=== PATIENT | male | born 1965 | race Caucasian/White ===

== ENCOUNTER 2020-07-12 09:41 | Outpatient (REF) | payer MEDICARE, MEDICAID, SELFPAY ==
[2020-07-12 10:12] LABS: MANUAL DIFF FLAG NO
[2020-07-12 10:20] LABS: Basophils Absolute Auto 0.1 X10*3/uL (0.0-0.2); Basophils Percent Auto 0.8 % (0-2); Eosinophils Absolute Auto 0.4 X10*3/uL (0.0-0.4); Eosinophils Percent Auto 4.2 % (0-4); Hematocrit 43.1 % (42-52); Hemoglobin 14.4 g/dl (14.0-18.0); Imm Gran Abs Auto 0.02 X10*3/uL (0.00-0.03); Imm Gran Pct Auto 0.2 % (0.0-0.4); Lymphocytes Absolute Auto 1.6 X10*3/uL (1.2-4.9); Lymphocytes Percent Auto 18.9 % (20-40); Mean Corpuscular HGB Conc 33.4 g/dl (31.0-36.0); Mean Corpuscular Hemoglobin 31.4 pg (27.0-33.0); Mean Corpuscular Volume 93.9 fL (80-98); Mean Platelet Volume 10.3 fL (9.4-12.4); Monocytes Absolute Auto 0.5 X10*3/uL (0.1-1.2); Monocytes Percent Auto 6.4 % (2-11); Neutrophils Absolute Auto 5.8 X10*3/uL (2.0-8.3); Neutrophils Percent Auto 69.5 % (45-73); Platelet Count 253 X10*3/uL (160-400); Red Blood Count 4.59 X10*6/uL (4.60-5.80); Red Cell Distribution Width 12.2 % (11.0-16.0); White Blood Count 8.3 X10*3/uL (4.8-10.8)
[2020-07-12 10:24] LABS: Estimated Average Glucose 100 mg/dL; Hemoglobin A1c % 5.1 %
[2020-07-12 10:33] LABS: Lithium 0.57 mmol/L (0.60-1.20)
[2020-07-12 10:39] LABS: Alanine Aminotransferase 34 U/L (0-40); Albumin Level 4.2 g/dL (3.5-5.0); Alkaline Phosphatase 89 U/L (39-117); Anion Gap 11 (12-20); Aspartate Amino Transferase 22 U/L (5-37); Bilirubin Total 0.3 mg/dL (0.0-1.0); Blood Urea Nitrogen 16 mg/dL (9-16); Carbon Dioxide 24 mmol/L (22-29); Chloride 106 mmol/L (96-108); Cholesterol 171 mg/dL; Estimated Glomerular Filt Rate > 60; Glucose Random 101 mg/dL (60-115); HDL Cholesterol 37 mg/dL; LDL Cholesterol Calculated 96 mg/dl; Potassium 4.5 mmol/l (3.3-5.1); Sodium 136 mmol/L (135-145); Total Protein 6.7 g/dL (6.5-8.0); Triglycerides 190 mg/dL
[2020-07-12 11:02] LABS: Free T4 (Free Thyroxine) 0.43 ng/dL (0.71-1.85)
[2020-07-12 11:20] LABS: Folate 15.3 ng/mL (> or = 4.0); Vitamin B12 635 pg/mL (200-900)
== END 2020-07-12 09:42 | disposition home or self-care (01) ==
LOC: HO.LAB 09:41
PROVIDERS: Visit Provider Psychiatry & Neurology Psychiatry
DX: F33.3 Major depressive disorder, recurrent, severe with psychotic symptoms (principal); Z51.81 Encounter for therapeutic drug level monitoring
CPT/HCPCS: 36415; 80053; 80061; 80178; 82607; 82746; 83036; 84439; 85025

== ENCOUNTER 2020-07-17 19:16 | Inpatient (IN) | payer MEDICARE, MEDICAID, SELFPAY ==
[2020-07-17 19:28] VITALS: BP 140/110; BP 175/96; PULSE 87; PULSE 96; RESP 16; TEMP 36.4; O2SAT 100; O2SAT 98; BMI 24.6
--- NOTE | 2020-07-17 19:34 | PC.NURSE ---
pt from home. Per EMS, pt has a rn social services who was on scene but left before they were able to ask questions. Pt is oriented to self only but does follow commands. Face is symetrical, tongue midline. He has no facial droop. Deck Mate strength equal and strong. He has no limb ataxia.Pt moves all extremities equally. He has no skin wounds, bruises or other injuries. Pt has bloodshot eyes, dry mouth. No other findings on nursing exam.
--- NOTE | 2020-07-17 19:36 | ED_ITS ---
HPI - Altered Mental Status General Chief Complaint: Altered Mental Status Stated Complaint: AMS Time Seen by Provider: 07/17/20 19:35 Source: EMS Mode of arrival: EMS Limitations: altered mental status History of Present Illness HPI narrative: Patient with History of depression and bipolar disorder with psychotic features sent by therapist for increased confusion patient not taking his medication for last 1 month able to follow commands oriented to himself only denies any hallucinations MD complaint: altered mental status and confusion Related Data Home Medications Medication Instructions Recorded Confirmed atenolol PO 07/17/20 clomipramine PO 07/17/20 gabapentin PO 07/17/20 liothyronine mcg PO 07/17/20 lithium carbonate mg PO 07/17/20 quetiapine mg PO 07/17/20 venlafaxine mg PO 07/17/20 Allergies Allergy/AdvReac Type Severity Reaction Status Date / Time N.K.D.A. Allergy Unknown Uncoded 12/04/17 00:00 Review of Systems Review of Systems: Yes Unobtainable due to mental status Neurologic: Reports confusion Psychiatric: Psychiatric: Reports confusion [facility] Social History Social History Advance Directives: No Advance Directives Information Provided: No Physical Exam Vital Signs: Vital Signs: Last Vital Signs Temp 98.0 F 07/17/20 23:54 Pulse 98 07/17/20 23:54 Resp 18 07/17/20 23:54 BP 164/100 H 07/17/20 23:54 Pulse Ox 98 07/17/20 23:54 Body Mass Index 24.6 Const: General: cooperative, healthy appearing, comfortable, no acute distress, well developed, alert, awake and confusion Nutritional Appearance: average body habitus Orientation/consciousness: oriented to person and confusion Limitations: altered mental status HENMT: Head: Yes normal to inspection and Yes No palpable skull fracture pre sent Ears: hearing grossly normal bilaterally Mouth: Normal oral and palatal mucosa present Eyes: General: appearance normal, both eyes and all related structures Conjunctivae: conjunctivae normal Sclerae: sclerae normal Pupils: Equal, round and reactive pupils present Neck: Neck: Yes normal visual inspection, Yes full ROM, Yes no lymphadenopathy and Yes no meningeal signs Resp: Effort & Inspection: normal respiratory effort Auscultation: clear to auscultation bilaterally, no crackles, no rales and no rhonchi Cardio: Jugular venous distension: no JVD Rate: regular rate Rhythm: regular rhythm Heart sounds: S1 normal heart sound present and S2 normal heart sound present GI: Inspection: Yes normal to inspection Palpation (GI): Soft to palpation and nontender : General: Yes no CVA tenderness Back/Spine/Pelvis: Back: no CVA tenderness Thoracic/Lumbar Spine: thoracic and lumbar spine normal to inspection Skin: General skin exam: no rashes or lesions noted Neuro: General: oriented to person, gait normal, moves all extremities, no meningeal signs, no focal motor deficits, CN's II-XI intact bilaterally and confusion Cranial nerves: Yes Equal, round and reactive pupils present Extrem: General: Yes normal to inspection Psych: Appearance: grossly normal Mental Status: other Affect: Blunted affect present Attitude: cooperative MDM - Altered Mental Status MDM Narrative Medical decision making narrative: Patient depression bipolar disorder came within confused state workup is negative except for leukocytosis etiology is not very clear patient was seen in [facility] plan for bed search. Because of leukocytosis will do the chest x-ray check with the COVID to the blood culture and lactic acid at this time there is no other signs of sepsis patient's lactic acid is 0.9 UA is pending Differential Diagnosis Differential diagnosis: Likely altered mental status Medical Records Attestation: I reviewed the patient's medical records. Lab Data Attestation: I reviewed the patient's lab results. Result diagrams: 07/17/20 20:18 07/17/20 20:18 Labs: Lab Results 07/17/20 07/17/20 07/17/20 Range/Units 20:18 20:18 20:18 WBC 19.6 H (4.8-10.8) X10*3/uL RBC 4.46 L (4.60-5.80) X10*6/uL Hgb 14.2 (14.0-18.0) g/dl Hct 40.3 L (42-52) % MCV 90.4 (80-98) fL MCH 31.8 (27.0-33.0) pg MCHC 35.2 (31.0-36.0) g/dl RDW 12.5 (11.0-16.0) % Plt Count 268 (160-400) X10*3/uL MPV 10.3 (9.4-12.4) fL Immature Gran % (Auto) 0.3 (0.0-0.4) % Neut % (Auto) 83.7 H (45-73) % Lymph % (Auto) 7.9 L (20-40) % [place] % (Auto) 7.9 (2-11) % Eos % (Auto) 0.0 (0-4) % Baso % (Auto) 0.2 (0-2) % Lymph # (Auto) 1.6 (1.2-4.9) X10*3/uL [place] # (Auto) 1.6 H (0.1-1.2) X10*3/uL Eos # (Auto) 0.0 (0.0-0.4) X10*3/uL Baso # (Auto) 0.0 (0.0-0.2) X10*3/uL Abs Immat Gran (auto) 0.06 H (0.00-0.03) X10*3/uL Absolute Neuts (auto) 16.4 H (2.0-8.3) X10*3/uL Absolute Nucleated RBC 0.000 (0.0-0.012) X10*3/uL Nucleated RBC % (auto) 0.0 (0.0-0.2) /100WBC Smear Tech's Comments VERIFIED Sodium 147 H (135-145) mmol/L Potassium 3.8 (3.3-5.1) mmol/l Chloride 113 H (96-108) mmol/L Carbon Dioxide 21 L (22-29) mmol/L Anion Gap 17 (12-20) BUN 24 H (9-16) mg/dL Creatinine 1.07 (0.5-1.4) mg/dL Estim Creat Clear Calc 75.4 Estimated GFR > 60 Random Glucose 118 H (60-115) mg/dL Lactic Acid (0.5-2.0) mmol/L Calcium 9.5 (8.4-10.2) mg/dL Total Bilirubin 1.0 (0.0-1.0) mg/dL Direct Bilirubin 0.5 (0.0-0.5) mg/dL AST 170 H (5-37) U/L ALT 79 H (0-40) U/L Alkaline Phosphatase 102 (39-117) U/L Total Protein 7.7 (6.5-8.0) g/dL Albumin 5.0 (3.5-5.0) g/dL TSH (0.32-4.0) uIU/mL [place] (0.60-1.20) mmol/L Coronavirus (PCR) (Negative) Influenza Type A (PCR) (Negative) Influenza Type B (PCR) (Negative) RSV RNA Qual (PCR) (Negative) 07/17/20 07/17/20 07/17/20 Range/Units 20:18 20:18 22:46 WBC (4.8-10.8) X10*3/uL RBC (4.60-5.80) X10*6/uL Hgb (14.0-18.0) g/dl Hct (42-52) % MCV (80-98) fL MCH (27.0-33.0) pg MCHC (31.0-36.0) g/dl RDW (11.0-16.0) % Plt Count (160-400) X10*3/uL MPV (9.4-12.4) fL Immature Gran % (Auto) (0.0-0.4) % Neut % (Auto) (45-73) % Lymph % (Auto) (20-40) % [place] % (Auto) (2-11) % Eos % (Auto) (0-4) % Baso % (Auto) (0-2) % Lymph # (Auto) (1.2-4.9) X10*3/uL [place] # (Auto) (0.1-1.2) X10*3/uL Eos # (Auto) (0.0-0.4) X10*3/uL Baso # (Auto) (0.0-0.2) X10*3/uL Abs Immat Gran (auto) (0.00-0.03) X10*3/uL Absolute Neuts (auto) (2.0-8.3) X10*3/uL Absolute Nucleated RBC (0.0-0.012) X10*3/uL Nucleated RBC % (auto) (0.0-0.2) /100WBC Smear Tech's Comments Sodium (135-145) mmol/L Potassium (3.3-5.1) mmol/l Chloride (96-108) mmol/L Carbon Dioxide (22-29) mmol/L Anion Gap (12-20) BUN (9-16) mg/dL Creatinine (0.5-1.4) mg/dL Estim Creat Clear Calc Estimated GFR Random Glucose (60-115) mg/dL Lactic Acid 0.9 (0.5-2.0) mmol/L Calcium (8.4-10.2) mg/dL Total Bilirubin (0.0-1.0) mg/dL Direct Bilirubin (0.0-0.5) mg/dL AST (5-37) U/L ALT (0-40) U/L Alkaline Phosphatase (39-117) U/L Total Protein (6.5-8.0) g/dL Albumin (3.5-5.0) g/dL TSH 2.28 (0.32-4.0) uIU/mL [place] 0.25 L (0.60-1.20) mmol/L Coronavirus (PCR) (Negative) Influenza Type A (PCR) (Negative) Influenza Type B (PCR) (Negative) RSV RNA Qual (PCR) (Negative) 07/17/20 Range/Units 22:47 WBC (4.8-10.8) X10*3/uL RBC (4.60-5.80) X10*6/uL Hgb (14.0-18.0) g/dl Hct (42-52) % MCV (80-98) fL MCH (27.0-33.0) pg MCHC (31.0-36.0) g/dl RDW (11.0-16.0) % Plt Count (160-400) X10*3/uL MPV (9.4-12.4) fL Immature Gran % (Auto) (0.0-0.4) % Neut % (Auto) (45-73) % Lymph % (Auto) (20-40) % [place] % (Auto) (2-11) % Eos % (Auto) (0-4) % Baso % (Auto) (0-2) % Lymph # (Auto) (1.2-4.9) X10*3/uL [place] # (Auto) (0.1-1.2) X10*3/uL Eos # (Auto) (0.0-0.4) X10*3/uL Baso # (Auto) (0.0-0.2) X10*3/uL Abs Immat Gran (auto) (0.00-0.03) X10*3/uL Absolute Neuts (auto) (2.0-8.3) X10*3/uL Absolute Nucleated RBC (0.0-0.012) X10*3/uL Nucleated RBC % (auto) (0.0-0.2) /100WBC Smear Tech's Comments Sodium (135-145) mmol/L Potassium (3.3-5.1) mmol/l Chloride (96-108) mmol/L Carbon Dioxide (22-29) mmol/L Anion Gap (12-20) BUN (9-16) mg/dL Creatinine (0.5-1.4) mg/dL Estim Creat Clear Calc Estimated GFR Random Glucose (60-115) mg/dL Lactic Acid (0.5-2.0) mmol/L Calcium (8.4-10.2) mg/dL Total Bilirubin (0.0-1.0) mg/dL Direct Bilirubin (0.0-0.5) mg/dL AST (5-37) U/L ALT (0-40) U/L Alkaline Phosphatase (39-117) U/L Total Protein (6.5-8.0) g/dL Albumin (3.5-5.0) g/dL TSH (0.32-4.0) uIU/mL [place] (0.60-1.20) mmol/L Coronavirus (PCR) NEGATIVE (Negative) Influenza Type A (PCR) NEGATIVE (Negative) Influenza Type B (PCR) NEGATIVE (Negative) RSV RNA Qual (PCR) NEGATIVE (Negative) Discharge Plan Discharge Clinical Impression: Bipolar affective disorder, depressed, severe, with psychotic behavior Patient Disposition: Xfer Psychiatric Hosp Prescriptions: No Action liothyronine 25 mcg tablet PO RF: 0 atenolol 25 mg tablet PO RF: 0 venlafaxine 150 mg capsule,extended release 24hr PO RF: 0 lithium carbonate 300 mg tablet extended release PO RF: 0 gabapentin 800 mg tablet PO RF: 0 clomipramine 50 mg capsule PO RF: 0 quetiapine 300 mg tablet extended release 24 hr PO RF: 0
[2020-07-17 19:38] VITALS: BP 140/110; PULSE 96; RESP 16; TEMP 36.4; O2SAT 100
--- NOTE | 2020-07-17 19:47 | CT_ITS ---
EXAMINATION: CT HEAD WITHOUT CONTRAST CLINICAL INFORMATION: Altered mental status COMPARISON: None TECHNIQUE: Contiguous axial imaging was performed from the skull base to vertex without intravenous administration of contrast. This CT examination was performed using dose optimization techniques as appropriate, variously including the following: *Automated exposure control *Adjustment of mA and/or kV according to patient size (this includes techniques or standardized protocols for targeted exams where dose is matched to indication/reason for exam; i.e. extremities or head) *Use of iterative reconstruction technique DLP: 737 mGy-cm FINDINGS: There is no evidence of acute intracranial hemorrhage or territorial infarction. No abnormal mass effect or midline shift is seen. [place] to white matter differentiation is well preserved. No extra-axial fluid collections are identified. The ventricles are normal in size. There is no abnormal attenuation within the brain parenchyma. The osseous structures and soft tissues are normal. Mild mucosal thickening of the left maxillary sinus. Other visualized paranasal sinuses are well aerated. CT/CT head/brain wo con IMPRESSION: -No acute intracranial pathology. -Minimal sinus disease.
--- NOTE | 2020-07-17 19:55 | MHC.CARE ---
CARE team confirmed with N that patient was evaluated in the community and is an inpatient bedsearch. Updated patient's nurse.
[2020-07-17] MEDS: 0.9 % Sodium Chloride 1,000 ML 999 ML IVCONT ×2 (20:31→22:27)
[2020-07-17 20:34] LABS: Basophils Percent Auto 0.2 % (0-2); Hematocrit 40.3 % (42-52); Hemoglobin 14.2 g/dl (14.0-18.0); Imm Gran Abs Auto 0.06 X10*3/uL (0.00-0.03); Imm Gran Pct Auto 0.3 % (0.0-0.4); Lymphocytes Absolute Auto 1.6 X10*3/uL (1.2-4.9); Lymphocytes Percent Auto 7.9 % (20-40); MANUAL DIFF FLAG SCAN; Mean Corpuscular HGB Conc 35.2 g/dl (31.0-36.0); Mean Corpuscular Hemoglobin 31.8 pg (27.0-33.0); Mean Corpuscular Volume 90.4 fL (80-98); Mean Platelet Volume 10.3 fL (9.4-12.4); Monocytes Absolute Auto 1.6 X10*3/uL (0.1-1.2); Monocytes Percent Auto 7.9 % (2-11); Neutrophils Absolute Auto 16.4 X10*3/uL (2.0-8.3); Neutrophils Percent Auto 83.7 % (45-73); Platelet Count 268 X10*3/uL (160-400); Red Blood Count 4.46 X10*6/uL (4.60-5.80); Red Cell Distribution Width 12.5 % (11.0-16.0); SCAN SMEAR FLAG 1; White Blood Count 19.6 X10*3/uL (4.8-10.8)
[2020-07-17 20:47] LABS: Lithium 0.25 mmol/L (0.60-1.20)
[2020-07-17 20:53] LABS: SLIDE REVIEW VERIFIED
[2020-07-17 20:54] LABS: Anion Gap 17 (12-20); Blood Urea Nitrogen 24 mg/dL (9-16); Calcium 9.5 mg/dL (8.4-10.2); Carbon Dioxide 21 mmol/L (22-29); Chloride 113 mmol/L (96-108); Creatinine Clr Calc Pharmacy 75.4; Estimated Glomerular Filt Rate > 60; Glucose Random 118 mg/dL (60-115); Potassium 3.8 mmol/l (3.3-5.1); Sodium 147 mmol/L (135-145)
[2020-07-17] MEDS: LORazepam 2 MG/ML VIAL IVPUSH (20:56)
[2020-07-17 21:15] LABS: Thyroid Stimulating Hormone 2.28 uIU/mL (0.32-4.0)
[2020-07-17 21:30] LABS: Alanine Aminotransferase 79 U/L (0-40); Alkaline Phosphatase 102 U/L (39-117); Aspartate Amino Transferase 170 U/L (5-37); Bilirubin Direct 0.5 mg/dL (0.0-0.5); Total Protein 7.7 g/dL (6.5-8.0)
[2020-07-17 22:00] VITALS: BP 132/80; PULSE 88; RESP 14; TEMP 36.4; O2SAT 99
--- NOTE | 2020-07-17 22:15 | XR_ITS ---
EXAMINATION: XR CHEST CLINICAL INFORMATION: Pneumonia COMPARISON: 04/06/2008 TECHNIQUE: Frontal view of the chest was obtained. FINDINGS: No significant abnormality is noted involving the heart, lungs, mediastinum, bony thorax or soft tissues. XR/XR chest 1V IMPRESSION: Unremarkable examination.
[2020-07-17 23:21] LABS: Lactic Acid 0.9 mmol/L (0.5-2.0)
[2020-07-17 23:35] LABS: Influenza A PCR NEGATIVE (Negative); Influenza B PCR NEGATIVE (Negative); Resp Syncy Virus RNA Qual PCR NEGATIVE (Negative); SARS COV2 PCR INHOUSE NEGATIVE (Negative)
--- NOTE | 2020-07-17 23:44 | PC.NURSE ---
report taken from fletcher chapa at this time. Pt is very confused only oriented to self. Pts eyes are blood shot, can follow commands but gets easily irritated with lots of questions. Pt afebrile at this time. Pt slightly hypertensive. Pending labs at this time,
[2020-07-17 23:54] VITALS: BP 164/100; PULSE 98; RESP 18; TEMP 36.7; O2SAT 98
[2020-07-18] VITALS (8 sets, daily range): BP systolic 143–167; BP diastolic 60–90; PULSE 84–134; RESP 17–22; TEMP 36.4–36.9; O2SAT 96–100
--- NOTE | 2020-07-18 00:31 | PC.NURSE ---
Pt ambulated to bathroom with 1 assist. urine sample obtained. pt given sandwich and [employer].
[2020-07-18 00:39] LABS: Glucose Urine UA NEG (NEG); Leukocyte Esterase Urine NEG (NEG); Nitrite Urine NEG (NEG); PH 6.5 (5.0-8.0); Urine Blood TRACE (NEG); Urine Ketones 5 MG/DL (NEG); Urine Protein NEG (NEG-TRACE)
[2020-07-18 00:50] LABS: Amphetamine Screen Urine Not Detected (Not Detect); Barbiturates, Urine Not Detected (Not Detect); Benzodiazepines Screen Urine Not Detected (Not Detect); Cannabinoid Screen Urine POSITIVE (Not Detect); Cocaine Screen Urine Not Detected (Not Detect); Opiate Screen Urine Not Detected (Not Detect); Phencyclidine Screen Urine Not Detected (Not Detect)
[2020-07-18 00:52] LABS: Appearance Urine CLEAR; Color Urine YELLOW
[2020-07-18 00:58] LABS: Mucus Urine TRACE /LPF; Squamous Epithelial Cell Urine TRACE /LPF; Uric Acid Crystals Urine TRACE /LPF; WBC Urine 0-2 /HPF (0-4)
--- NOTE | 2020-07-18 06:31 | PC.NURSE ---
PT BLOOD PRESSURE IS HIGH 167/85 AND PULSE 90 RN NOHELIA IS AWARE. PT IS CONFUSED AND NOT ABLE TO DO SIMPLE TASKS ON HIS OWN.
--- NOTE | 2020-07-18 07:28 | PC.NURSE ---
report taken from jimbo chapa pt sitting in [facility], appears with cheerful affect. pt is sec 12 inpt bed search, awaiting psych consult today per previous shift rn.
--- NOTE | 2020-07-18 10:37 | PC.NURSE ---
all nails cyber threat analyst in pod to sanjana gomez.
--- NOTE | 2020-07-18 12:45 | ECG_ITS ---
Test Reason : ALTERED MENTAL Blood Pressure : / mmHG Vent. Rate : 093 BPM Atrial Rate : 093 BPM P-R Int : 118 ms QRS Dur : 086 ms QT Int : 392 ms P-R-T Axes : 041 -11 051 degrees QTc Int : 487 ms Poor data quality Normal sinus rhythm Nonspecific ST and T wave abnormality Abnormal ECG When compared with ECG of 24-FEB-2013 12:02, No significant change was found Referred By: Venice Mendoza Electronically Signed By:Alber Ellis
[2020-07-18 13:23] LABS: MANUAL DIFF FLAG NO
--- NOTE | 2020-07-18 13:24 | PC.NURSE ---
per karthik guzman, plan for pt to have mri. pt unable to complete screening form d/t mental status. electrical/instrument technician aware. will review recent xray results and have any needed xrays ordered.
[2020-07-18 13:26] LABS: Basophils Absolute Auto 0.1 X10*3/uL (0.0-0.2); Basophils Percent Auto 0.4 % (0-2); Eosinophils Percent Auto 0.1 % (0-4); Hematocrit 38.5 % (42-52); Hemoglobin 13.4 g/dl (14.0-18.0); Imm Gran Pct Auto 0.6 % (0.0-0.4); Lymphocytes Absolute Auto 1.5 X10*3/uL (1.2-4.9); Lymphocytes Percent Auto 9.4 % (20-40); Mean Corpuscular HGB Conc 34.8 g/dl (31.0-36.0); Mean Corpuscular Hemoglobin 32.2 pg (27.0-33.0); Mean Corpuscular Volume 92.5 fL (80-98); Mean Platelet Volume 10.5 fL (9.4-12.4); Monocytes Absolute Auto 1.1 X10*3/uL (0.1-1.2); Monocytes Percent Auto 6.7 % (2-11); Neutrophils Absolute Auto 13.2 X10*3/uL (2.0-8.3); Neutrophils Percent Auto 82.8 % (45-73); Platelet Count 255 X10*3/uL (160-400); Red Blood Count 4.16 X10*6/uL (4.60-5.80); Red Cell Distribution Width 12.8 % (11.0-16.0)
--- NOTE | 2020-07-18 13:33 | XR_ITS ---
EXAMINATION: XR ABDOMEN KUB CLINICAL INDICATION: MRI clearance. COMPARISON: Chest radiograph 07/17/2020 TECHNIQUE: AP x3 views of the abdomen and pelvis. FINDINGS: The lung bases are clear. There is no cardiac pacer. No abdominal or pelvic generator, pump, or other unexpected metallic implant. There are scattered metallic snaps from the patient's gown. Bowel gas is unremarkable. There is thoracic and lumbosacral curvature. Transitional vertebral body S1 with partial lumbarization, greater on left. XR/XR abdomen 1V IMPRESSION: Unremarkable examination.
[2020-07-18] MEDS: Venlafaxine HCl ER 75 MG CAP.ER.24H PO (13:39)
--- NOTE | 2020-07-18 13:41 | PC.NURSE ---
pt needs abd xray to clear for any potential implants before going for mri. plan for pt mri once cleared.
--- NOTE | 2020-07-18 13:47 | PM.PSYCN ---
History of Present Illness Date of Service: 07/18/2020 Chief Complaint: AMS Reason for Consult: Medication review change in mental status Requesting physician: Venice Mendoza Discussed with referring provider: Yes Sources of Information: patient interviewed and chart reviewed Additional Sources of Information: outpatient psychiatrist, Chavez Zuniga outpatient psychologist, Gerard Brito [facility] Narrative: Patient is a 55 year old male with history of Bipolar disorder, who presented to the ED via ambulance after his psychologist called EMS due to patient's mental status during video visit. Collateral information from psychologist, who sees him weekly: -He reports Gerard was completely himself (at baseline) last week during their scheduled appt -Reports that during yesterday's visit (07/17) patient was unable to effectively communicate, he got up from his chair repeatedly and went to the front door, he was repeating the same words -He reports he asked patient if he stopped taking his medications and patient replied yes -he reports patient was unable to tell him his address and had significant difficulty following any direction Patient seen by this freelance writer earlier this morning, patient was awake, alert, and observed to be walking back and forth in the area of ED. Patient unable to answer any questions, he essentially smiled and said yeah, that's it , repeatedly. He does not appear to be able to process information either as this freelance writer asked him to put on his mask and he smiled and said, yeah, but never did it. It took several asks and physical demonstration to eventually get him to do it. Past Psychiatric History: Per outpatient provider, patient has been stable for some time on his current regimen Medical Evaluation Reviewed: Yes CT negative afebrile UDS negative (with the exception of marijuana) [place] level low --last week was therapeutic Review of Systems Review of Systems Yes Unobtainable due to mental status Diagnostics Vital Signs (24Hr): Vital Signs - 24 hr 07/17/20 19:28 07/17/20 19:38 07/17/20 22:00 Temperature 97.5 F 97.5 F 97.5 F Pulse Rate 96 96 88 Respiratory Rate 16 16 14 Blood Pressure 140/110 H 140/110 H 132/80 Pulse Oximetry 100 100 99 07/17/20 23:54 07/18/20 06:25 07/18/20 10:58 Temperature 98.0 F 97.8 F 97.6 F Pulse Rate 98 90 84 Respiratory Rate 18 17 Blood Pressure 164/100 H 167/85 H 155/87 H Pulse Oximetry 98 99 98 Body Mass Index 24.6 Labs Results: 07/18/20 13:16 07/17/20 20:18 Labs: Laboratory Results - last 48 hr 07/17/20 07/17/20 07/17/20 20:18 20:18 20:18 WBC 19.6 H RBC 4.46 L Hgb 14.2 Hct 40.3 L MCV 90.4 MCH 31.8 MCHC 35.2 RDW 12.5 Plt Count 268 MPV 10.3 Immature Gran % (Auto) 0.3 Neut % (Auto) 83.7 H Lymph % (Auto) 7.9 L [place] % (Auto) 7.9 Eos % (Auto) 0.0 Baso % (Auto) 0.2 Lymph # (Auto) 1.6 [place] # (Auto) 1.6 H Eos # (Auto) 0.0 Baso # (Auto) 0.0 Abs Immat Gran (auto) 0.06 H Absolute Neuts (auto) 16.4 H Absolute Nucleated RBC 0.000 Nucleated RBC % (auto) 0.0 Smear Tech's Comments VERIFIED Sodium 147 H Potassium 3.8 Chloride 113 H Carbon Dioxide 21 L Anion Gap 17 BUN 24 H Creatinine 1.07 Estim Creat Clear Calc 75.4 Estimated GFR > 60 Random Glucose 118 H Lactic Acid Calcium 9.5 Total Bilirubin 1.0 Direct Bilirubin 0.5 AST 170 H ALT 79 H Alkaline Phosphatase 102 Total Protein 7.7 Albumin 5.0 TSH Urine Color Urine Appearance Urine pH Ur Specific [place] Urine Protein Urine Glucose (UA) Urine Ketones Urine Blood Urine Nitrite Ur Leukocyte Esterase Urine RBC Urine WBC Ur Squamous Epith Cells Uric Acid Crystals Urine Bacteria Urine Mucus Urine Opiates Screen Ur Barbiturates Screen Ur Phencyclidine Scrn Ur Amphetamines Screen U Benzodiazepines Scrn [place] Urine Cocaine Screen U Marijuana (THC) Screen Coronavirus (PCR) Influenza Type A (PCR) Influenza Type B (PCR) RSV RNA Qual (PCR) 07/17/20 07/17/20 07/17/20 20:18 20:18 22:46 WBC RBC Hgb Hct MCV MCH MCHC RDW Plt Count MPV Immature Gran % (Auto) Neut % (Auto) Lymph % (Auto) [place] % (Auto) Eos % (Auto) Baso % (Auto) Lymph # (Auto) [place] # (Auto) Eos # (Auto) Baso # (Auto) Abs Immat Gran (auto) Absolute Neuts (auto) Absolute Nucleated RBC Nucleated RBC % (auto) Smear Tech's Comments Sodium Potassium Chloride Carbon Dioxide Anion Gap BUN Creatinine Estim Creat Clear Calc Estimated GFR Random Glucose Lactic Acid 0.9 Calcium Total Bilirubin Direct Bilirubin AST ALT Alkaline Phosphatase Total Protein Albumin TSH 2.28 Urine Color Urine Appearance Urine pH Ur Specific [place] Urine Protein Urine Glucose (UA) Urine Ketones Urine Blood Urine Nitrite Ur Leukocyte Esterase Urine RBC Urine WBC Ur Squamous Epith Cells Uric Acid Crystals Urine Bacteria Urine Mucus Urine Opiates Screen Ur Barbiturates Screen Ur Phencyclidine Scrn Ur Amphetamines Screen U Benzodiazepines Scrn [place] 0.25 L Urine Cocaine Screen U Marijuana (THC) Screen Coronavirus (PCR) Influenza Type A (PCR) Influenza Type B (PCR) RSV RNA Qual (PCR) 07/17/20 07/18/20 07/18/20 22:47 00:26 00:26 WBC RBC Hgb Hct MCV MCH MCHC RDW Plt Count MPV Immature Gran % (Auto) Neut % (Auto) Lymph % (Auto) [place] % (Auto) Eos % (Auto) Baso % (Auto) Lymph # (Auto) [place] # (Auto) Eos # (Auto) Baso # (Auto) Abs Immat Gran (auto) Absolute Neuts (auto) Absolute Nucleated RBC Nucleated RBC % (auto) Smear Tech's Comments Sodium Potassium Chloride Carbon Dioxide Anion Gap BUN Creatinine Estim Creat Clear Calc Estimated GFR Random Glucose Lactic Acid Calcium Total Bilirubin Direct Bilirubin AST ALT Alkaline Phosphatase Total Protein Albumin TSH Urine Color YELLOW Urine Appearance CLEAR Urine pH 6.5 Ur Specific [place] 1.020 Urine Protein NEG Urine Glucose (UA) NEG Urine Ketones 5 Urine Blood TRACE Urine Nitrite NEG Ur Leukocyte Esterase NEG Urine RBC 5-9 H Urine WBC 0-2 Ur Squamous Epith Cells TRACE Uric Acid Crystals TRACE Urine Bacteria NONE Urine Mucus TRACE Urine Opiates Screen Not Detected Ur Barbiturates Screen Not Detected Ur Phencyclidine Scrn Not Detected Ur Amphetamines Screen Not Detected U Benzodiazepines Scrn Not Detected [place] Urine Cocaine Screen Not Detected U Marijuana (THC) Screen POSITIVE H Coronavirus (PCR) NEGATIVE Influenza Type A (PCR) NEGATIVE Influenza Type B (PCR) NEGATIVE RSV RNA Qual (PCR) NEGATIVE 07/18/20 13:16 WBC 16.0 H RBC 4.16 L Hgb 13.4 L Hct 38.5 L MCV 92.5 MCH 32.2 MCHC 34.8 RDW 12.8 Plt Count 255 MPV 10.5 Immature Gran % (Auto) 0.6 H Neut % (Auto) 82.8 H Lymph % (Auto) 9.4 L [place] % (Auto) 6.7 Eos % (Auto) 0.1 Baso % (Auto) 0.4 Lymph # (Auto) 1.5 [place] # (Auto) 1.1 Eos # (Auto) 0.0 Baso # (Auto) 0.1 Abs Immat Gran (auto) 0.10 H Absolute Neuts (auto) 13.2 H Absolute Nucleated RBC 0.000 Nucleated RBC % (auto) 0.0 Smear Tech's Comments Sodium Potassium Chloride Carbon Dioxide Anion Gap BUN Creatinine Estim Creat Clear Calc Estimated GFR Random Glucose Lactic Acid Calcium Total Bilirubin Direct Bilirubin AST ALT Alkaline Phosphatase Total Protein Albumin TSH Urine Color Urine Appearance Urine pH Ur Specific [place] Urine Protein Urine Glucose (UA) Urine Ketones Urine Blood Urine Nitrite Ur Leukocyte Esterase Urine RBC Urine WBC Ur Squamous Epith Cells Uric Acid Crystals Urine Bacteria Urine Mucus Urine Opiates Screen Ur Barbiturates Screen Ur Phencyclidine Scrn Ur Amphetamines Screen U Benzodiazepines Scrn [place] Urine Cocaine Screen U Marijuana (THC) Screen Coronavirus (PCR) Influenza Type A (PCR) Influenza Type B (PCR) RSV RNA Qual (PCR) Imaging Radiology Impressions: ITS Impressions Head CT 07/17/20 19:47 IMPRESSION: -No acute intracranial pathology. -Minimal sinus disease. Chest X-Ray 07/17/20 22:15 IMPRESSION: Unremarkable examination. Mental Status Exam Mental Status Exam Patient Appearance: Disheveled Level of Consciousness: Awake, Disoriented and Alert Patient Behavior: Confused and Pacing Mood Description: Calm Affect Description: Calm Patient Cognition Impaired: Yes Ability to Follow Directions: Poor Speech Pattern: Aphasic Thought Process: Confusion Thought Content: positive for Poverty of Content Judgement: Poor Medications Medications Current Medications Generic Name Dose Route Start Last Admin Trade Name Freq PRN Reason Stop Dose Admin Clomipramine HCl 25 mg 07/18/20 21:00 Clomipramine Hcl 25 Mg Capsule PO BEDTIME ORACIO Lorazepam 2 mg 07/18/20 13:33 Lorazepam 2 Mg/Ml Vial IVPUSH ONCE PRN pre-op for MRI Pharmacy Consult 1 each 12/16/20 00:51 Consult Rx Perform Med Rec MISCELLANE ONCE PRN Consult order Quetiapine Fumarate 50 mg 07/18/20 15:00 Quetiapine Fumarate 50 Mg Tablet PO TID ORACIO Venlafaxine HCl 75 mg 07/18/20 13:35 07/18/20 13:39 Venlafaxine Hcl Er 75 Mg Cap.Er.24h PO 75 mg DAILY ORACIO Administration Allergies Allergies Allergy/AdvReac Type Severity Reaction Status Date / Time N.K.D.A. Allergy Unknown Uncoded 12/04/17 00:00 Assessment & Plan Assessment & Plan (1) Delirium: Status: Acute Code(s): R41.0 - Disorientation, unspecified Recommendations: Discussed case with ED provider and attending psychiatrist ? delirium related to abrupt discontinuation of venlafaxine, lithium and seroquel ?NMS though no fever and no muscle rigidity ? encephalitis Plan to reintroduce Seroquel, Anafranil, and Effexor at lower doses Additional labs, EKG, and MRI ordred as well Based on current presentation, not appropriate for psychiatric admission Greater than 50% of the session was spent on counseling and/or coordination of care
[2020-07-18 13:57] LABS: Ammonia 35 umol/L (13-55)
--- NOTE | 2020-07-18 14:27 | PC.NURSE ---
pt taken to xray via wheelchair w security and mha escort
[2020-07-18 15:03] LABS: Folate > 20.0 ng/mL (> or = 4.0); Vitamin B12 634 pg/mL (200-900)
--- NOTE | 2020-07-18 15:48 | PC.NURSE ---
Pt moved into main ed, cooperative but requires frequent re-direction, easily overwhelmed. IV fluids infusing per emar, plan for MRI and labs.
[2020-07-18] MEDS: 0.9 % Sodium Chloride 1,000 ML 999 ML IV ×2 (15:55→17:01)
[2020-07-18] MEDS: LORazepam 2 MG/ML VIAL IVPUSH (15:59)
[2020-07-18 16:09] LABS: INTERNATIONAL NORM RATIO 1.3 (0.9-1.1); Prothrombin Time 15.1 SEC (10.8-13.0)
--- NOTE | 2020-07-18 16:33 | PC.NURSE ---
Pt medicated to assist w/ medical treatment- LP and MRI. EUNICE Gustafson at bedside performing LP at this time. Pt tolerating well but requiring much re-direction
--- NOTE | 2020-07-18 16:44 | P.HPHOSP_ITS ---
History of Present Illness Date of Service: 07/18/20 <NORMA Louise - Last Filed: 07/18/20 17:09> Chief Complaint: Altered mental status <NORMA Louise - Last Filed: 07/18/20 17:09> This is a 55-year-old male with a history of bipolar disorder who was brought to the emergency department after his psychologist called EMS due to a mental status change during a [facility] health visit. He was reportedly at his baseline last week during their visit. In the emergency department his vital signs were stable. Lab work revealed leukocytosis of 19.6 but no source of infection was identified. Eldora level was 0.25. Tox screen was positive for marijuana. Brain CT was unremarkable. He was cleared and moved to this [facility] where he was evaluated by the [facility] p [facility]. They were concerned that his symptoms were not psychiatric in nature and should have further medical workup. CPK was checked and noted to be around 4000. White count had improved to 16,000 thousand. Given his altered mental status the decision was made to obtain an LP in the emergency department as well as an MRI of his brain. Therefore he is being admitted to medical service for further workup. The patient himself is unable to provide any history . <NORMA Louise - Last Filed: 07/18/20 17:09> Review of Systems Review of Systems: Attempted to obtain review of systems however is unable to provide any significant history and keeps repeating himself. <NORMA Louise - Last Filed: 07/18/20 17:09> Yes Unobtainable due to mental status <NORMA Louise - Last Filed: 07/18/20 17:09> [facility], LAT[facility] Medical History: Medical History (Updated 07/18/20 @ 17:03 by NORMA Louise) Bipolar 1 disorder Hypertension Hypothyroidism <NORMA Louise - Last Filed: 07/18/20 17:09> Functional capacity: independent ambulation <NORMA Louise - Last Filed: 07/18/20 17:09> Pertinent family history: Unable to obtain due to current confusion <NORMA Louise Last Filed: 07/18/20 17:09> Social History: Social History Advance Directives: No Advance Directives Information Provided: No <NORMA Louise - Last Filed: 07/18/20 17:09> Meds Allergies/Adverse reactions: Allergies Allergy/AdvReac Type Severity Reaction Status Date / Time N.K.D.A. Allergy Unknown Uncoded 12/04/17 00:00 <NORMA Louise - Last Filed: 07/18/20 17:09> Home medications: Home Medications Medication Instructions Recorded Confirmed Type atenolol 25 mg PO BID 07/17/20 07/18/20 History clomipramine 100 mg PO BEDTIME 07/17/20 07/18/20 History liothyronine 25 mcg PO DAILY 07/17/20 07/18/20 History lithium carbonate 600 mg PO BEDTIME 07/17/20 07/18/20 History quetiapine 600 mg PO BEDTIME 07/17/20 07/18/20 History venlafaxine 150 mg PO BID 07/17/20 07/18/20 History <NORMA Louise - Last Filed: 07/18/20 17:09> Physical Exam Vital Signs and Narrative: Vital Signs: Last Vital Signs Temp 98.4 F 07/18/20 15:44 Pulse 92 07/18/20 15:44 Resp 18 07/18/20 15:44 BP 152/81 H 07/18/20 15:44 Pulse Ox 98 07/18/20 15:44 Body Mass Index 24.6 <NORMA Louise - Last Filed: 07/18/20 17:09> Const: Other: Observed sitting in his hospital bed. He was awake and alert but confused. <NORMA Louise - Last Filed: 07/18/20 17:09> General: alert and awake <NORMA Louise - Last Filed: 07/18/20 17:09> Nutritional Appearance: well nourished <NORMA Louise - Last Filed: 07/18/20 17:09> HENMT: Head: Yes normocephalic and Yes atraumatic <NORMA Louise - Last Filed: 07/18/20 17:09> Eyes: Sclerae: sclerae normal <NORMA Louise - Last Filed: 07/18/20 17:09> Chest: Chest palpation & inspection: normal inspection of the chest <NORMA Louise - Last Filed: 07/18/20 17:09> Resp: Effort & Inspection: normal respiratory effort and no respiratory distress <NORMA Louise - Last Filed: 07/18/20 17:09> Cardio: Rate: regular rate <NORMA Louise - Last Filed: 07/18/20 17:09> Rhythm: regular rhythm <NORMA Louise - Last Filed: 07/18/20 17:09> Skin: General skin exam: no rashes or lesions noted <NORMA Louise - Last Filed: 07/18/20 17:09> Neuro: Cranial nerves: Yes CN's II-XII intact bilaterally and Yes Bilaterally intact EOM present <NORMA Louise - Last Filed: 07/18/20 17:09> Extrem: General: Yes normal to inspection <NORMA Louise - Last Filed: 07/18/20 17:09> Results Labs CBC and Chem 7: : 07/18/20 13:16 07/17/20 20:18 <NORMA Louise - Last Filed: 07/18/20 17:09> Labs: Laboratory Results - last 24 hr 07/17/20 07/17/20 07/17/20 20:18 20:18 20:18 MCV 90.4 MCH 31.8 MCHC 35.2 RDW 12.5 Plt Count 268 MPV 10.3 Immature Gran % (Auto) 0.3 Neut % (Auto) 83.7 H Lymph % (Auto) 7.[address] [place] % (Auto) 7.9 Eos % (Auto) 0.0 Baso % (Auto) 0.2 Lymph # (Auto) 1.6 [place] # (Auto) 1.6 H Eos # (Auto) 0.0 Baso # (Auto) 0.0 Abs Immat Gran (auto) 0.06 H Absolute Neuts (auto) 16.4 H Absolute Nucleated RBC 0.000 Nucleated RBC % (auto) 0.0 Smear Tech's Comments VERIFIED PT INR Anion Gap 17 Estim Creat Clear Calc 75.4 Estimated GFR > 60 Random Glucose 118 H Lactic Acid Calcium 9.5 Total Bilirubin 1.0 Direct Bilirubin 0.5 AST 170 H ALT 79 H Alkaline Phosphatase 102 Ammonia Total Creatine Kinase Total Protein 7.7 Albumin 5.0 Vitamin B12 Folate TSH Urine Color Urine Appearance Urine pH Ur Specific Snow Urine Protein Urine Glucose (UA) Urine Ketones Urine Blood Urine Nitrite Ur Leukocyte Esterase Urine RBC Urine WBC Ur Squamous Epith Cells Uric Acid Crystals Urine Bacteria Urine Mucus Urine Opiates Screen Ur Barbiturates Screen Ur Phencyclidine Scrn Ur Amphetamines Screen U Benzodiazepines Scrn [place] Urine Cocaine Screen U Marijuana (THC) Screen Coronavirus (PCR) Influenza Type A (PCR) Influenza Type B (PCR) RSV RNA Qual (PCR) 07/17/20 07/17/20 07/17/20 20:18 20:18 22:46 MCV MCH MCHC RDW Plt Count MPV Immature Gran % (Auto) Neut % (Auto) Lymph % (Auto) [place] % (Auto) Eos % (Auto) Baso % (Auto) Lymph # (Auto) [place] # (Auto) Eos # (Auto) Baso # (Auto) Abs Immat Gran (auto) Absolute Neuts (auto) Absolute Nucleated RBC Nucleated RBC % (auto) Smear Tech's Comments PT INR Anion Gap Estim Creat Clear Calc Estimated GFR Random Glucose Lactic Acid 0.9 Calcium Total Bilirubin Direct Bilirubin AST ALT Alkaline Phosphatase Ammonia Total Creatine Kinase Total Protein Albumin Vitamin B12 Folate TSH 2.28 Urine Color Urine Appearance Urine pH Ur Specific Snow Urine Protein Urine Glucose (UA) Urine Ketones Urine Blood Urine Nitrite Ur Leukocyte Esterase Urine RBC Urine WBC Ur Squamous Epith Cells Uric Acid Crystals Urine Bacteria Urine Mucus Urine Opiates Screen Ur Barbiturates Screen Ur Phencyclidine Scrn Ur Amphetamines Screen U Benzodiazepines Scrn Eldora 0.25 L Urine Cocaine Screen U Marijuana (THC) Screen Coronavirus (PCR) Influenza Type A (PCR) Influenza Type B (PCR) RSV RNA Qual (PCR) 07/17/20 07/18/20 07/18/20 22:47 00:26 00:26 MCV MCH MCHC RDW Plt Count MPV Immature Gran % (Auto) Neut % (Auto) Lymph % (Auto) [place] % (Auto) Eos % (Auto) Baso % (Auto) Lymph # (Auto) [place] # (Auto) Eos # (Auto) Baso # (Auto) Abs Immat Gran (auto) Absolute Neuts (auto) Absolute Nucleated RBC Nucleated RBC % (auto) Smear Tech's Comments PT INR Anion Gap Estim Creat Clear Calc Estimated GFR Random Glucose Lactic Acid Calcium Total Bilirubin Direct Bilirubin AST ALT Alkaline Phosphatase Ammonia Total Creatine Kinase Total Protein Albumin Vitamin B12 Folate TSH Urine Color YELLOW Urine Appearance CLEAR Urine pH 6.5 Ur Specific Snow 1.020 Urine Protein NEG Urine Glucose (UA) NEG Urine Ketones 5 Urine Blood TRACE Urine Nitrite NEG Ur Leukocyte Esterase NEG Urine RBC 5-9 H Urine WBC 0-2 Ur Squamous Epith Cells TRACE Uric Acid Crystals TRACE Urine Bacteria NONE Urine Mucus TRACE Urine Opiates Screen Not Detected Ur Barbiturates Screen Not Detected Ur Phencyclidine Scrn Not Detected Ur Amphetamines Screen Not Detected U Benzodiazepines Scrn Not Detected [place] Urine Cocaine Screen Not Detected U Marijuana (THC) Screen POSITIVE H Coronavirus (PCR) NEGATIVE Influenza Type A (PCR) NEGATIVE Influenza Type B (PCR) NEGATIVE RSV RNA Qual (PCR) NEGATIVE 07/18/20 07/18/20 07/18/20 13:16 13:16 13:16 MCV 92.5 MCH 32.2 MCHC 34.8 RDW 12.8 Plt Count 255 MPV 10.5 Immature Gran % (Auto) 0.6 H Neut % (Auto) 82.8 H Lymph % (Auto) 9.[address] [place] % (Auto) 6.7 Eos % (Auto) 0.1 Baso % (Auto) 0.4 Lymph # (Auto) 1.5 [place] # (Auto) 1.1 Eos # (Auto) 0.0 Baso # (Auto) 0.1 Abs Immat Gran (auto) 0.10 H Absolute Neuts (auto) 13.2 H Absolute Nucleated RBC 0.000 Nucleated RBC % (auto) 0.0 Smear Tech's Comments PT INR Anion Gap Estim Creat Clear Calc Estimated GFR Random Glucose Lactic Acid Calcium Total Bilirubin Direct Bilirubin AST ALT Alkaline Phosphatase Ammonia 35 Total Creatine Kinase 4323 H Total Protein Albumin Vitamin B12 Folate TSH Urine Color Urine Appearance Urine pH Ur Specific Snow Urine Protein Urine Glucose (UA) Urine Ketones Urine Blood Urine Nitrite Ur Leukocyte Esterase Urine RBC Urine WBC Ur Squamous Epith Cells Uric Acid Crystals Urine Bacteria Urine Mucus Urine Opiates Screen Ur Barbiturates Screen Ur Phencyclidine Scrn Ur Amphetamines Screen U Benzodiazepines Scrn [place] Urine Cocaine Screen U Marijuana (THC) Screen Coronavirus (PCR) Influenza Type A (PCR) Influenza Type B (PCR) RSV RNA Qual (PCR) 07/18/20 07/18/20 13:16 15:56 MCV MCH MCHC RDW Plt Count MPV Immature Gran % (Auto) Neut % (Auto) Lymph % (Auto) [place] % (Auto) Eos % (Auto) Baso % (Auto) Lymph # (Auto) [facility] # (Auto) Eos # (Auto) Baso # (Auto) Abs Immat Gran (auto) Absolute Neuts (auto) Absolute Nucleated RBC Nucleated RBC % (auto) Smear Tech's Comments PT 15.1 H INR 1.3 H Anion Gap Estim Creat Clear Calc Estimated GFR Random Glucose Lactic Acid Calcium Total Bilirubin Direct Bilirubin AST ALT Alkaline Phosphatase Ammonia Total Creatine Kinase Total Protein Albumin Vitamin B12 634 Folate > 20.0 TSH Urine Color Urine Appearance Urine pH Ur Specific Snow Urine Protein Urine Glucose (UA) Urine Ketones Urine Blood Urine Nitrite Ur Leukocyte Esterase Urine RBC Urine WBC Ur Squamous Epith Cells Uric Acid Crystals Urine Bacteria Urine Mucus Urine Opiates Screen Ur Barbiturates Screen Ur Phencyclidine Scrn Ur Amphetamines Screen U Benzodiazepines Scrn [place] Urine Cocaine Screen U Marijuana (THC) Screen Coronavirus (PCR) Influenza Type A (PCR) Influenza Type B (PCR) RSV RNA Qual (PCR) <NORMA Louise - Last Filed: 07/18/20 17:09> Imaging Radiologist's Impressions: Impressions Head CT 07/17/20 19:47 IMPRESSION: -No acute intracranial pathology. -Minimal sinus disease. Chest X-Ray 07/17/20 22:15 IMPRESSION: Unremarkable examination. Abdomen X-Ray 07/18/20 13:33 IMPRESSION: Unremarkable examination. <NORMA Louise - Last Filed: 07/18/20 17:09> Assessment and Plan (1) Rhabdomyolysis: Status: Acute <NORMA Louise - Last Filed: 07/18/20 17:09> (2) Altered mental status: Status: Acute <NORMA Louise - Last Filed: 07/18/20 17:09> This is a 55-year-old male with history of bipolar disorder who was sent to the emergency department by his psychiatrist after noting confusion during a tele health visit Encephalopathy Afebrile. Brain CT negative. Leukocytosis improving. No focal deficit No source of infection identified Follow-up LP, follow-up MRI Neurology consult Mild rhabdomyolysis IV fluid Follow CPK, renal function Bipolar disorder Continue medications as recommended by psych provider, all other medications will be on hold Hypertension Continue atenolol Thyroid disease Continue home thyroid medication Mood disorder Continue meds per psych recommendation Psych consult DVT prophylaxis-mechanical devices Code status-presumed full code This case was discussed with Dr. Evangelista <NORMA Louise - Last Filed: 07/18/20 17:09>
[2020-07-18] MEDS: Ketamine HCl/NS 50 MG/5 ML SYRINGE 150 MG IVPUSH (16:45)
[2020-07-18] MEDS: Ketamine HCl/NS 50 MG/5 ML SYRINGE 75 MG IVPUSH (16:50)
[2020-07-18] MEDS: Midazolam HCl/PF 2 MG/2 ML VIAL IVPUSH (16:52)
--- NOTE | 2020-07-18 17:52 | PC.NURSE ---
Pt returned from MRI- unable to safely complete MRI due to pt movement, difficulty following directions. Pt resting in bed, vss at this time, sitter nearby.
[2020-07-18 17:57] LABS: Glucose CSF 84 mg/dL; Total Protein CSF 45.4 mg/dL (15-45)
--- NOTE | 2020-07-18 18:10 | PC.NURSE ---
Addendum entered by Yamel Paula 07/18/20 18:12: ketamine per emar. Pt placed on 2l nasal cannula, tele, and spo2 monitoring. unable to obtain bp due to pt movement. Original Note: late entry- at 1640 ariane net making supervisor, dr. sanon, this rn and 2 techs attempted to perform LP on pt, pt became increasingly agitated to tactile stimuli, attempting to get oob, confused. Medicated w/ Ketamin per
[2020-07-18 18:16] LABS: Appearance CSF CLEAR; CSF Tube # 4; CSF Volume 1.2 ML; Color CSF COLORLESS; Red Blood Cell CSF 1 MM*3; White Blood Cell CSF 0 MM*3
--- NOTE | 2020-07-18 18:17 | PC.NURSE ---
attempt to give report
--- NOTE | 2020-07-18 19:56 | PC.NURSE ---
called to give nurse to nurse report and rn is now on break.
[2020-07-18] MEDS: atenoloL 25 MG TABLET PO (21:02)
[2020-07-18] MEDS: clomiPRAMINE HCl 25 MG CAPSULE PO (21:02)
[2020-07-18] MEDS: LORazepam 1 MG TABLET PO (21:02)
[2020-07-18] MEDS: 0.9 % Sodium Chloride Flush 3 ML SYRINGE IVFLUSH (21:03)
[2020-07-18] MEDS: 0.9 % Sodium Chloride 1,000 ML 100 ML IVCONT (21:03)
[2020-07-19] VITALS (10 sets, daily range): BP systolic 105–169; BP diastolic 59–96; PULSE 66–98; RESP 16–20; TEMP 36.3–38.5; O2SAT 96–100
--- NOTE | 2020-07-19 | CT_ITS ---
EXAMINATION: CT ABDOMEN AND PELVIS WITHOUT CONTRAST CLINICAL INFORMATION: Urinary retention, fever COMPARISON: Radiographs abdomen 07/18/2020, chest 07/17/2020 TECHNIQUE: Multidetector volumetric imaging was performed from the superior aspect of the liver through the pubic symphysis. No oral or intravenous contrast. Sagittal and coronal reformatted images were obtained on the technologist's workstation. This CT examination was performed using dose optimization techniques as appropriate, variously including the following: *Automated exposure control *Adjustment of mA and/or kV according to patient size (this includes techniques or standardized protocols for targeted exams where dose is matched to indication/reason for exam; i.e. extremities or head) *Use of iterative reconstruction technique DLP: 566 mGy-cm FINDINGS: LUNG BASES: Pleural-based nodule left lateral base, 4 x 6 x 7 mm (axial series , sagittal series 03/20). LIVER, GALLBLADDER, AND BILIARY TREE: The liver is normal in size and smooth in contour. There is no hepatic parenchymal lesion or intrahepatic biliary ductal dilatation. The gallbladder has fundal fold versus Phrygian cap. There is a 2 x 3 cm gallstone and a punctate stone under 5 mm. No gallbladder wall thickening or pericholecystic inflammatory changes. Common duct unremarkable. PANCREAS: Unremarkable. SPLEEN: Unremarkable. ADRENAL GLANDS: Unremarkable. KIDNEYS AND URETERS: The kidneys are normal in size and attenuation. There is no hydronephrosis necrosis, hydroureter, calculi, or perinephric stranding. BLADDER: Bladder: Nondistended, indwelling Villasenor catheter. Although difficult to assess given the nondistention, there is suspicion for circumferential bladder wall thickening. GASTROINTESTINAL TRACT: There is no bowel obstruction or inflammatory changes in the bowel or mesentery. There are collapsed segments of mid and distal sigmoid which limits assessment for stricture. No appreciable wall thickening. Appendix not seen with certainty. No inflammatory changes around cecum or terminal ileum. No ascites or fluid collection. ABDOMINAL WALL: No significant hernia is appreciated. LYMPH NODES: No lymphadenopathy. VASCULAR: Unremarkable. PELVIC VISCERA: Prostate and seminal vesicles normal in size. OSSEOUS STRUCTURES: No acute bony abnormality. CT/CT abdomen pelvis wo con IMPRESSION: 1. Bladder nondistended, indwelling Villasenor catheter. Suspect circumferential bladder wall thickening. Upper tracts unremarkable. No hydronephrosis or perinephric stranding. 2. Cholelithiasis. No gallbladder wall thickening or ductal dilatation. 3. No inflammatory changes in bowel or mesentery. No ascites. 4. Pleural-based nodule left lung base, average dimension just under 6 mm. Fleischner guidelines below. Reference: The Fleischner Society recommendations for management of incidentally detected pulmonary nodules in adults age 35 and greater are based on average nodule size and patient risk category. The recommendations do not apply to lung cancer screening, patients with immunosuppression, or patients with known primary cancer. Single solid nodule average size < 6 mm: Low Risk Patient: No routine follow-up. High Risk Patient: Optional CT at 12 months. Certain patients at high risk with suspicious nodule morphology, upper lobe location, or both may warrant 12-month follow-up.
[2020-07-19] MEDS: LORazepam 2 MG/ML VIAL 1 MG IVPUSH ×2 (05:40→15:28)
[2020-07-19 06:14] LABS: MANUAL DIFF FLAG NO
[2020-07-19 06:16] LABS: Basophils Absolute Auto 0.1 X10*3/uL (0.0-0.2); Basophils Percent Auto 0.4 % (0-2); Eosinophils Absolute Auto 0.1 X10*3/uL (0.0-0.4); Eosinophils Percent Auto 0.3 % (0-4); Hematocrit 34.7 % (42-52); Imm Gran Abs Auto 0.04 X10*3/uL (0.00-0.03); Imm Gran Pct Auto 0.3 % (0.0-0.4); Lymphocytes Absolute Auto 1.4 X10*3/uL (1.2-4.9); Lymphocytes Percent Auto 9.5 % (20-40); Mean Corpuscular HGB Conc 34.6 g/dl (31.0-36.0); Mean Corpuscular Hemoglobin 32.5 pg (27.0-33.0); Mean Platelet Volume 10.5 fL (9.4-12.4); Monocytes Absolute Auto 1.1 X10*3/uL (0.1-1.2); Monocytes Percent Auto 7.2 % (2-11); Neutrophils Absolute Auto 12.4 X10*3/uL (2.0-8.3); Neutrophils Percent Auto 82.3 % (45-73); Platelet Count 199 X10*3/uL (160-400); Red Blood Count 3.69 X10*6/uL (4.60-5.80); Red Cell Distribution Width 12.9 % (11.0-16.0); White Blood Count 15.1 X10*3/uL (4.8-10.8)
[2020-07-19] MEDS: Acetaminophen 325 MG TABLET 650 MG PO ×2 (06:32→18:03)
[2020-07-19 06:45] LABS: Blood Urea Nitrogen 20 mg/dL (9-16); Calcium 8.8 mg/dL (8.4-10.2); Carbon Dioxide 17 mmol/L (22-29); Chloride 124 mmol/L (96-108); Creatinine Clr Calc Pharmacy 77.6; Estimated Glomerular Filt Rate > 60; Glucose Random 101 mg/dL (60-115); Potassium 3.5 mmol/l (3.3-5.1)
[2020-07-19 06:52] LABS: Anion Gap 15 (12-20); Sodium 152 mmol/L (135-145)
--- NOTE | 2020-07-19 07:11 | PC.NURSE ---
pt retaining urine, bladder scanned 416 mls, straight cath ordered and placed, 800 mls of yellow urine out after straight cath. pt had a rectal temp of 101.3, po tylenol given around 0600.
[2020-07-19] MEDS: 0.9 % Sodium Chloride 1,000 ML 100 ML IVCONT (07:20)
[2020-07-19] MEDS: atenoloL 25 MG TABLET PO ×2 (07:49→20:28)
[2020-07-19] MEDS: Venlafaxine HCl ER 75 MG CAP.ER.24H PO (07:49)
[2020-07-19] MEDS: Liothyronine Sodium 25 MCG TABLET PO (07:49)
[2020-07-19] MEDS: LORazepam 1 MG TABLET PO ×3 (07:49→20:28)
[2020-07-19 09:26] LABS: Lactic Acid 0.9 mmol/L (0.5-2.0)
[2020-07-19] MEDS: Dextrose 5 % and 0.45 % NaCl 1,000 ML 100 ML IVCONT (09:35)
--- NOTE | 2020-07-19 11:05 | PM.NEUROCN ---
History of Present Illness Data of Consult Service Date: 07/19/20 Primary Care Provider: Unknown Physician 55 years old man who was admitted hospital with change in mental status. Apparently he was having an online meeting with his therapist when he was noted to be confused and was sent to emergency room. Is so far his workup was under process but no obvious etiology was noted. He was unable to provide any meaningful history. Review of Systems Review of Systems: Unable to provide history for review of system questions. Neurologic: Reports confusion Psychiatric: Psychiatric: Reports confusion REPLACED BY [facility] Past Medical History Medical History (Updated 07/19/20 @ 11:08 by Edmundo Tapia MD) Bipolar 1 disorder Hypertension Hypothyroidism Functional capacity: independent ambulation Social History Social History Household Members: None Housing: Apartment Do you presently have visiting nurse or other home services: No Smoking Status: Former smoker Use of substances other than those prescribed or required for medical reasons: Yes Substance Use Type: Marijuana Substance Use Frequency: Daily Currently Displaying Signs/Symptoms of Drug Intoxication Withdrawal: No Have you been hit, kicked, punched, or otherwise hurt by someone within the past year? If so, by whom?: No Do you feel safe in your current relationship?: No Is there a partner from a previous relationship who is making you feel unsafe now?: No Are you made to feel afraid or neglected: No Advance Directives: No Advance Directives Information Provided: No Do you have thoughts of harming others: None Do you have a plan to hurt others: No Plan Recently lost weight without trying: No Meds Allergies Allergy/AdvReac Type Severity Reaction Status Date / Time N.K.D.A. Allergy Unknown Uncoded 12/04/17 00:00 Home Medications Medication Instructions Recorded Confirmed Type atenolol 25 mg PO BID 07/17/20 07/18/20 History clomipramine 100 mg PO BEDTIME 07/17/20 07/18/20 History liothyronine 25 mcg PO DAILY 07/17/20 07/18/20 History lithium carbonate 600 mg PO BEDTIME 07/17/20 07/18/20 History quetiapine 600 mg PO BEDTIME 07/17/20 07/18/20 History venlafaxine 150 mg PO BID 07/17/20 07/18/20 History Physical Exam Vital Signs: Vital Signs: Last Vital Signs Temp 99.1 F 07/19/20 07:41 Pulse 77 07/19/20 07:41 Resp 18 07/19/20 07:41 BP 117/90 H 07/19/20 07:41 Pulse Ox 98 07/19/20 07:41 Body Mass Index 24.6 Mildly febrile. Otherwise alert and awake walking around in and weighed dazed affect. Spontaneity and fluency of speech were diminished. He was unable to name and repeat. Occasionally he answered the question and yes and no but generally he was not responsive. There was no obvious she eye jerking or twitching or abnormal muscle movement. Face was symmetrical. Pupils were equal and reactive to light. There was no obvious arm or leg weakness. Const: General: confusion Orientation/consciousness: confusion Neuro: General: confusion Results Labs CBC & Chem 7: 07/19/20 06:04 07/19/20 06:04 Labs: Short CBC 07/18/20 07/19/20 Range/Units 13:16 06:04 WBC 16.0 H 15.1 H (4.8-10.8) X10*3/uL Hgb 13.4 L 12.0 L (14.0-18.0) g/dl Hct 38.5 L 34.7 L (42-52) % Plt Count 255 199 (160-400) X10*3/uL BMP 07/19/20 06:04 Sodium 152 H Potassium 3.5 Chloride 124 H Carbon Dioxide 17 L BUN 20 H Creatinine 1.04 Calcium 8.8 D Cardiac Enzymes 07/18/20 07/19/20 Range/Units 13:16 06:04 Total Creatine Kinase 4323 H 2241 H D (38-174) U/L his noncontrast head CT did not reveal any significant abnormality. Microbiology Microbiology Results: Microbiology 07/18/20 17:11 Cerebrospinal Fluid Gram Stain - Preliminary 07/18/20 17:11 Cerebrospinal Fluid CSF Examination - Preliminary 07/18/20 17:11 Cerebrospinal Fluid Gross Specimen Examination - Preliminary 07/18/20 17:11 Cerebrospinal Fluid CSF Culture - Preliminary No growth after 1 day 07/17/20 22:46 Blood - Venous Blood Culture - Preliminary No growth after 24 hours. 07/17/20 22:46 Blood - Venous Blood Culture - Preliminary No growth after 24 hours. Assessment and Plan (1) Aphasia: Status: Acute 55 years old man who was clinically aphasic at this time. Etiology was unclear. As he spiked a fever and his initial CSF revealed slightly high protein, an infectious etiology was a possibility. His serum sodium was high but that would not explain his clinical situation. At this time my recommendation is to treat him as a case of encephalitis and sent for meningoencephalitis panel. I would cover him with acyclovir and broad-spectrum antibiotic. Appropriate hydration is needed to correct hypernatremia. An MRI brain and EEG are also recommended.
--- NOTE | 2020-07-19 11:17 | P.CDIC_ITS ---
CDI Concurrent Query Service Date: 07/19/20 Documentation Clarification: Please clarify if you are treating a proba ble/suspected/likely or confirmed: Hypernatremia Please specify if known HyperNa Provider Response: Other Other Diagnosis: HyperNa PLEASE DO NOT DELETE/MODIFY EXISTING CONTENT Additional information is needed in order to code to the highest accuracy and appropriate Severity of Illness (SOI). Please clarify the information noted below in your progress notes and discharge summary. Risk Factors/Clinical Indicators/Treatments LABS: Sodium 147 152 H IV Dextrose sodium Altered mental status, delirium CDS: Naima Guajardo CCS, CDIS Contact Number: [phone] Please Review the information above and exercise your independent professional judgment in responding to the query. If you concur, pleas document in the PROGRESS NOTES and DISCHARGE SUMMARY. If you do not agree with the query, please document in the query above. THIS QUERY IS PART OF THE PERMANENT MEDICAL RECORD
--- NOTE | 2020-07-19 14:55 | EEG_ITS ---
The waking background activity consists of low voltage posterior 8 hertz alpha frequency, intermixed anteriorly with low-voltage fast frequencies. Drowsiness is characterized by diffuse theta slowing. Light sleep stages are identified. Photic stimulation is without activation. Hyperventilation was omitted. No focal, lateralizing, or paroxysmal discharges seen. IMPRESSION: This is briefly awake and predominantly drowsy and sleep EEG is considered within normal limits. MD TREY Nova/SAVANNAH / [id number]
--- NOTE | 2020-07-19 15:13 | MHC.CM.PN ---
pt lives alone in apt. he is active c psychiatric svcs in the community. dc plan is to return home c resumption of svcs , perhaps with a vna to promote med compliance vs. Acute inpt. psych admission. cm to cont. to follow.
[2020-07-19 15:21] LABS: Alanine Aminotransferase 101 U/L (0-40); Albumin Level 4.3 g/dL (3.5-5.0); Alkaline Phosphatase 91 U/L (39-117); Anion Gap 11 (12-20); Aspartate Amino Transferase 123 U/L (5-37); Bilirubin Direct 0.4 mg/dL (0.0-0.5); Blood Urea Nitrogen 20 mg/dL (9-16); Calcium 8.9 mg/dL (8.4-10.2); Carbon Dioxide 20 mmol/L (22-29); Chloride 125 mmol/L (96-108); Creatinine Clr Calc Pharmacy 73.4; Estimated Glomerular Filt Rate > 60; Glucose Random 99 mg/dL (60-115); Potassium 3.8 mmol/l (3.3-5.1); Sodium 152 mmol/L (135-145); Total Protein 6.6 g/dL (6.5-8.0)
--- NOTE | 2020-07-19 16:00 | P.PNIM_ITS ---
Subjective Subjective Date of Service: 07/19/20 Interval History: seen and examined multiples this AM spiked temp over night remains confused states his name Physical Exam Vital Signs: Vital Signs: Last Vital Signs Temp 99.0 F 07/19/20 15:28 Pulse 66 07/19/20 15:28 Resp 16 07/19/20 15:28 BP 164/85 H 07/19/20 15:28 Pulse Ox 97 07/19/20 15:28 Body Mass Index 24.6 Const: Other: General - no acute distress, appears comfortable Cardiovascular - regular rate and rhythm, S1-S2 Lungs - normal respiratory effort, clear to auscultation bilaterally, no wheezing Abdomen - soft, nontender, no rebound or guarding Extremities - no edema bilaterally Neuro - disoriented / aphasic Objective Data Current Medications Generic Name Dose Route Start Last Admin Trade Name Freq PRN Reason Stop Dose Admin Acetaminophen 650 mg 07/18/20 20:17 07/19/20 06:32 Acetaminophen 325 Mg Tablet PO 650 mg Q6H PRN Administration Pain, Mild (Pain Scale 1-3) Atenolol 25 mg 07/18/20 21:00 07/19/20 07:49 Atenolol 25 Mg Tablet PO 25 mg BID ORACIO Administration Protocol Clomipramine HCl 25 mg 07/18/20 21:00 07/18/20 21:02 Clomipramine Hcl 25 Mg Capsule PO 25 mg BEDTIME ORACIO Administration Docusate Sodium 100 mg 07/18/20 20:17 Docusate Sodium 100 Mg Capsule PO DAILY PRN Constipation Dextrose/Sodium Chloride 1,000 mls @ 100 mls/hr 07/19/20 08:15 07/19/20 09:35 D51/2ns IVCONT 100 mls/hr .Q10H ORACIO Administration Liothyronine Sodium 25 mcg 07/19/20 09:00 07/19/20 07:49 Liothyronine Sodium 25 Mcg Tablet PO 25 mcg DAILY ORACIO Administration Lorazepam 1 mg 07/18/20 21:00 07/19/20 14:48 Lorazepam 1 Mg Tablet PO 1 mg TID ORACIO Administration Lorazepam 1 mg 07/19/20 11:50 07/19/20 15:28 Lorazepam 2 Mg/Ml Vial IVPUSH 1 mg ONCE PRN Administration for MRI Ondansetron HCl 4 mg 07/18/20 20:17 Ondansetron Hcl 4 Mg/2 Ml Vial IVPUSH Q8H PRN Nausea and Vomiting Pharmacy Consult 1 each 07/18/20 00:51 Consult Rx Perform Med Rec MISCELLANE ONCE PRN Consult order Sodium Chloride 3 ml 07/19/20 00:00 07/19/20 14:51 0.9 % Sodium Chloride Flush 3 Ml Syringe IVFLUSH Not Given QSHIFT ORACIO Venlafaxine HCl 75 mg 07/18/20 13:35 07/19/20 07:49 Venlafaxine Hcl Er 75 Mg Cap.Er.24h PO 75 mg DAILY ORACIO Administration Labs CBC & Chem 7: 07/19/20 06:04 07/19/20 14:44 Microbiology Microbiology Results: Microbiology 07/18/20 17:11 Cerebrospinal Fluid Gram Stain - Preliminary 07/18/20 17:11 Cerebrospinal Fluid CSF Examination - Preliminary 07/18/20 17:11 Cerebrospinal Fluid Gross Specimen Examination - Preliminary 07/18/20 17:11 Cerebrospinal Fluid CSF Culture - Preliminary No growth after 1 day 07/17/20 22:46 Blood - Venous Blood Culture - Preliminary No growth after 24 hours. 07/17/20 22:46 Blood - Venous Blood Culture - Preliminary No growth after 24 hours. Assessment and Plan (1) Rhabdomyolysis: Status: Acute (2) Aphasia: Status: Acute (3) Altered mental status: Status: Acute Assessment and Plan: This is a 20-kuyr-odd-year-old male with a past medical history of bipolar disorder who presented to the hospital with acute neurological changes. He is admitted for further workup. 1. Encephalopathy/aphasia LP done in the emergency room yesterday is not indicative of meningitis/encepha litis. Meningitis/encephalitis panel is negative. This was discussed with Neurology and decision was for an EEG and a MRI of the brain. MRI of the brain has been ordered however patient is unable to sit still enough to have a completed. Will need IV sedation if unable to complete which hopefully we can complete tomorrow. Called his brother to the get consent for this, however went unanswered. Will keep NPO after midnight 2. Fevers T-max of 103 degrees this morning, no definitive source of infection. Cultured again. CT abdomen checked. Some bladder thickening but UA not indicative of UTI. Will start empiric ceftriaxone and consult ID. 3. Mood Continue medications as recommended by psychiatry 4. Rhabdomyolysis Down trending with fluids Suspect this is the cause of his transaminitis as well 5. Hypernatremia Due to poor oral intake Increased from [id number]. Suspect this was iatrogenic from normal saline Fluid switch to D5 in water. Check BMP this evening and adjust accordingly. 6. Urinary retention Required straight catheterization multiple times, will place Villasenor. 6. Hypertension/tachycardia Continues atenolol Full Code DVT pptx, start pharmcological tomorrow (had LP yesterday)
[2020-07-19] MEDS: LORazepam 2 MG/ML VIAL IVPUSH (16:11)
[2020-07-19 17:13] LABS: Glucose Urine UA NEG (NEG); Leukocyte Esterase Urine NEG (NEG); Nitrite Urine NEG (NEG); Specific Gravity - Urine 1.015 (1.005-1.025); Urine Blood 2+ (NEG); Urine Ketones NEG (NEG); Urine Protein NEG (NEG-TRACE)
--- NOTE | 2020-07-19 17:22 | PC.NURSE ---
PT ALERT ONLY TO SELF , PT VERY RESTLESS , PT ONLY SAYING OVER AND OVER OK , PT UNABLE TO PROVIDE ANY HISTORY . PT BLADDER SCANNED AT 1230 FOR 400MLS . PT UNABLE TO VOID , MADE AWARE NEW ORDER FOR GARZA CATH AND URINALYSIS . 1 MG IV ATIVAN GIVEN PRIOR TO GARZA INSERTION AT 1528 . 3 STAFF MEMBERS ASSISTED THIS RN IN INSERTING GARZA CATH DUE TO PT FIGHTING STAFF .AFTER GARZA CATH INSERTED PT REPEATEDLY ATTEMPTING TO PULL OUT GARZA CATH . MADE AWARE OF PT CONT TO PULL OUT GARZA . 2MG OF IV ATIVAN ORDERED AND GIVEN AT 1611 - MRI ORDRED AND CT OF ABDOMEN ORDERED . MRI UP TO SEE PT AND THIS RN , AND MRI TEAM FEEL THE ATIVAN WAS NOT EFFECTIVE DUE TO PT CONT TO REQUIRE 1-1 ASSISTANCE TO KEEP PT SAFE . THIS RN AND NURSES AID TRANSPORTED PT TO CT SCAN WITH SUCCESS OF SCAN .PT CONT TO ATTEMPT TO PULL AT TUBES AT 1730
[2020-07-19 17:24] LABS: Appearance Urine CLEAR; Color Urine YELLOW
[2020-07-19 17:36] LABS: Squamous Epithelial Cell Urine TRACE /LPF; WBC Urine 0-2 /HPF (0-4)
[2020-07-19] MEDS: Dextrose 5 % 1,000 ML 100 ML IVCONT (18:05)
[2020-07-19] MEDS: cefTRIAXone sodium 1 GM in 0.9 % Sodium Chloride 50 ML IV (18:26)
--- NOTE | 2020-07-19 18:44 | MHC.CARE ---
Pt initially accepted to for psychiatric care on 07/18 but no longer medically clear. CARE Team contacted Pts attending provider who stated Pt is still not medically clear.
[2020-07-19 20:27] LABS: Anion Gap 12 (12-20); Blood Urea Nitrogen 20 mg/dL (9-16); Calcium 8.7 mg/dL (8.4-10.2); Carbon Dioxide 19 mmol/L (22-29); Chloride 124 mmol/L (96-108); Estimated Glomerular Filt Rate > 60; Glucose Random 89 mg/dL (60-115); Potassium 3.4 mmol/l (3.3-5.1); Sodium 152 mmol/L (135-145)
[2020-07-19] MEDS: clomiPRAMINE HCl 25 MG CAPSULE PO (20:27)
[2020-07-19] MEDS: Gabapentin 300 MG CAPSULE PO (20:27)
[2020-07-19] MEDS: QUEtiapine Fumarate 300 MG TABLET 600 MG PO (20:27)
[2020-07-20] VITALS (7 sets, daily range): BP systolic 102–159; BP diastolic 66–94; PULSE 55–90; RESP 14–20; TEMP 36.3–37.1; O2SAT 98–100
[2020-07-20 01:37] LABS: Anion Gap 12 (12-20); Blood Urea Nitrogen 18 mg/dL (9-16); Calcium 8.5 mg/dL (8.4-10.2); Carbon Dioxide 18 mmol/L (22-29); Chloride 123 mmol/L (96-108); Creatinine Clr Calc Pharmacy 74.7; Estimated Glomerular Filt Rate > 60; Glucose Random 102 mg/dL (60-115); Potassium 3.3 mmol/l (3.3-5.1); Sodium 150 mmol/L (135-145)
--- NOTE | 2020-07-20 01:51 | PM.EVENT ---
Event Note Date of Service: 07/20/20 Event Note: Patient started on Vancomycin given Bcx positive for Gram positive cocci in clusters x 2. Follow up final Bcx.
[2020-07-20] MEDS: vancomycin HCL 1,000 MG in 0.9 % Sodium Chloride 250 ML 270 MG IV (02:10)
[2020-07-20] MEDS: Dextrose 5 % 1,000 ML 125 ML IVCONT ×3 (04:20→22:05)
[2020-07-20 06:25] LABS: Hematocrit 38.2 % (42-52); Hemoglobin 12.5 g/dl (14.0-18.0); Mean Corpuscular HGB Conc 32.7 g/dl (31.0-36.0); Mean Corpuscular Hemoglobin 31.6 pg (27.0-33.0); Mean Corpuscular Volume 96.7 fL (80-98); Mean Platelet Volume 10.8 fL (9.4-12.4); Platelet Count 195 X10*3/uL (160-400); Red Blood Count 3.95 X10*6/uL (4.60-5.80); Red Cell Distribution Width 12.9 % (11.0-16.0); White Blood Count 12.9 X10*3/uL (4.8-10.8)
[2020-07-20 07:25] LABS: Alanine Aminotransferase 89 U/L (0-40); Albumin Level 3.6 g/dL (3.5-5.0); Alkaline Phosphatase 84 U/L (39-117); Anion Gap 13 (12-20); Aspartate Amino Transferase 82 U/L (5-37); Bilirubin Direct 0.4 mg/dL (0.0-0.5); Blood Urea Nitrogen 16 mg/dL (9-16); Calcium 8.5 mg/dL (8.4-10.2); Carbon Dioxide 19 mmol/L (22-29); Chloride 123 mmol/L (96-108); Creatinine Clr Calc Pharmacy 77.6; Estimated Glomerular Filt Rate > 60; Glucose Random 92 mg/dL (60-115); Potassium 3.6 mmol/l (3.3-5.1); Sodium 151 mmol/L (135-145); Total Protein 5.8 g/dL (6.5-8.0)
--- NOTE | 2020-07-20 08:30 | MR_ITS ---
EXAMINATION: MR BRAIN WITHOUT AND WITH CONTRAST CLINICAL INFORMATION: Altered mental status. COMPARISON: Head CT dated 07/17/2020. TECHNIQUE: Multiplanar, multisequence imaging of the brain was performed before and after the intravenous administration of 7.5 mL of Gadavist. Slightly limited examination with motion artifacts. FINDINGS: No diffusion abnormalities are identified to suggest an acute infarct. The ventricles are normal in size. No mass effect or midline shift is seen. Minimal nonspecific scattered white matter signal changes noted. No extra-axial fluid collections are seen. The brainstem and cerebellum are normal. On postcontrast imaging, there is no abnormal parenchymal or leptomeningeal enhancement. The gradient refocused acquisition is normal. The craniovertebral junction, marrow signal, and midline structures are normal. The major intracranial flow voids at the level of the [place] are preserved. The dural venous sinus flow voids are maintained. The mastoid air cells are well aerated. There is mild patchy mucosal thickening in the paranasal sinuses. MR/MR head/brain wo/w con IMPRESSION: Limited study with motion artifacts. No acute intracranial process. Minimal nonspecific scattered white matter signal changes. No obvious abnormal enhancement.
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
[2020-07-20] MEDS: Gabapentin 300 MG CAPSULE PO (10:07)
[2020-07-20] MEDS: LORazepam 1 MG TABLET PO (10:08)
[2020-07-20] MEDS: Liothyronine Sodium 25 MCG TABLET PO (10:08)
[2020-07-20] MEDS: atenoloL 25 MG TABLET PO ×2 (10:08→20:43)
[2020-07-20] MEDS: Venlafaxine HCl ER 75 MG CAP.ER.24H PO (10:08)
--- NOTE | 2020-07-20 11:00 | CA_ITS ---
Transthoracic Echocardiogram Patient (Last, First, Middle): Gerard Tyson, Gender: Male Date of : 1965 Age: 55 Procedure Date: 07/20/2020 Procedure Type: Transthoracic Echocardiogram Location[place] [facility] [place] Height: 172.72 cm Weight: 73.48 kg BSA: 1.87 m2 Heart Rate: bpm BP: 105 / 59 mmHg Application Security Specialist: Referring MD: Noam Evangelista MD Symptoms: Gram positive bacteremia, to rule out endocarditis Study Quality: Fair ECG Rhythm: Sinus Conclusions: - Normal left ventricular size, thickness, systolic function, and wall motion. - Normal right ventricular cavity size and systolic function. - The left atrium is likely dilated. - No obvious vegetation noticed. Aortic and pulmonic valves are not well visualized. - Consider a BRYN if clinically appropriate. Findings Left Ventricle Normal left ventricular size, thickness, systolic function, and wall motion. The visually estimated ejection fraction is between 55-60%. Diastolic function is normal for age. Right Ventricle Normal right ventricular cavity size and systolic function. Atria The left atrium is likely dilated. Aortic Valve The aortic valve was not well visualized. There is no aortic valve stenosis. There is trace (trivial) aortic valve regurgitation. Mitral Valve The mitral valve appears normal. There is trace mitral valve regurgitation. There is no mitral valve stenosis. Pulmonic Valve The pulmonic valve was not well visualized. Tricuspid Valve Normal tricuspid valve structure. There is trace tricuspid valve regurgitation. Normal right atrial pressure. There is no evidence of pulmonary hypertension. Great Vessels All visible segments of the aorta are normal in size. The pulmonary artery was not well visualized. Venous The inferior vena cava is normal in size and collapses greater than 50% with inspiration. Pericardium/Pleural There is no evidence of pericardial effusion. Prior Study Comparison No prior study available for comparison. Recommendations, Care & Conclusions Consider a BRYN if clinically appropriate. Measurements 2D Linear Measurements IVSd: 0.92 0.6-0.9/0.6-1.0 cm LVIDd: 4.71 3.9-5.3/4.2-5.9 cm LVIDd Index: 2.52 2.4-3.2/2.2-3.1 cm/m2 LVIDs: 2.98 2.0-3.6 cm LVPWd: 1.06 0.7-1.1 cm Ao Root: 2.70 2.1-3.5 cm LA Diam: 3.40 2.7-3.8/3.0-4.0 cm LAIDs Index: 1.82 1.5-2.3 cm/m2 LV Mass: 202.45 67-162/88-224 g LV Mass Index: 108.26 43-95/49-115 g/m2 LVOT Diam: 2.00 3.0+(-)1.3 cm Mitral Valve MV Pk E: 0.64 MV PK A: 0.56 MV Decel Time: 187.00 E/A: 1.10 E'Lateral: 14.50 E'Medial: 8.70 E/E' Med: 7.40 E/E' Lat: 4.40 PHT: 55.00 MVA PHT: 4.00 [place]: 3.43 Aortic Valve AoV Pk Parveen: 0.95 AoV Mn Parveen: 0.67 AoV VTI: 0.25 AoV Pk Grad: 4.00 Aov Mn Grad: 2.00 JOSEPH Cont.VTI: 2.37 LVOT LVOT Pk Parveen: 0.75 LVOT Mn Parveen: 0.47 LVOT VTI: 0.19 LVOT Pk Grad: 2.00 LVOT Mn Grad: 1.00 LVOT Diam: 2.00 LVOT Area: 3.14 Diastolic Function MV Pk E: 0.64 MV Pk A: 0.56 E/A: 1.10 E'Medial: 8.70 E/E' Med: 7.40 E' Laterial: 14.50 E/E' Lat: 4.40 Tricuspid Valve TR Pk Parveen: 2.13 TR Pk Grad: 18.00 Great Vessels Aorta Ao Root-2D: 2.70 2.0-3.7 cm Pulmonary Valve PV Pk Parveen: 1.02 Peak PV Grad: 4.00 Updated in Other Vendor System with Status of Final Alber Ellis MD electronically signed on 07/21/2020 11:11:25 AM with status of Final
--- NOTE | 2020-07-20 11:10 | MHC.CARE ---
Pt is no longer a pending admission to at this time due to medical needs. Behavioral Health to be recoorindated with upon medical stablity regarding approriate plan of care.
[2020-07-20 11:11] LABS: Anion Gap 11 (12-20); Blood Urea Nitrogen 16 mg/dL (9-16); Calcium 8.6 mg/dL (8.4-10.2); Carbon Dioxide 21 mmol/L (22-29); Chloride 123 mmol/L (96-108); Creatinine Clr Calc Pharmacy 79.1; Estimated Glomerular Filt Rate > 60; Glucose Random 99 mg/dL (60-115); Potassium 3.4 mmol/l (3.3-5.1); Sodium 152 mmol/L (135-145)
--- NOTE | 2020-07-20 15:08 | W.PM.IDCN ---
History of Present Illness Data of Consult Service Date: 07/20/20 Requesting physician: Noam Evangelista Primary Care Provider: Unknown Physician HPI Reason for consult: fever of unknown origin,bacteremia He comes in to hospital with confusion for two days He has no cough,nausea,vomiting or diarrhea. He has bacteremia not on 07/17 but has on 07/14,gram positive cocci x 2. Review of Systems Neurologic: Reports confusion Psychiatric: Psychiatric: Reports confusion [facility] Past Medical History Medical History Bipolar 1 disorder Hypertension Hypothyroidism Functional capacity: independent ambulation Social History Social History Household Members: None Housing: Apartment Do you presently have visiting nurse or other home services: No Smoking Status: Former smoker Use of substances other than those prescribed or required for medical reasons: Yes Substance Use Type: Marijuana Substance Use Frequency: Daily Currently Displaying Signs/Symptoms of Drug Intoxication Withdrawal: No Have you been hit, kicked, punched, or otherwise hurt by someone within the past year? If so, by whom?: No Do you feel safe in your current relationship?: No Is there a partner from a previous relationship who is making you feel unsafe now?: No Are you made to feel afraid or neglected: No Advance Directives: No Advance Directives Information Provided: No Do you have thoughts of harming others: None Do you have a plan to hurt others: No Plan Recently lost weight without trying: No service: No Current occupational status: disabled Meds Allergies Allergy/AdvReac Type Severity Reaction Status Date / Time N.K.D.A. Allergy Unknown Uncoded 12/04/17 00:00 Home Medications Medication Instructions Recorded Confirmed Type atenolol 25 mg PO BID 07/17/20 07/18/20 History clomipramine 100 mg PO BEDTIME 07/17/20 07/18/20 History liothyronine 25 mcg PO DAILY 07/17/20 07/18/20 History lithium carbonate 600 mg PO BEDTIME 07/17/20 07/18/20 History quetiapine 600 mg PO BEDTIME 07/17/20 07/18/20 History venlafaxine 150 mg PO BID 07/17/20 07/18/20 History Physical Exam Vital Signs: Vital Signs: Last Vital Signs Temp 97.9 F 07/20/20 11:52 Pulse 90 07/20/20 11:52 Resp 18 07/20/20 11:52 BP 159/78 H 07/20/20 11:52 Pulse Ox 99 07/20/20 11:52 Body Mass Index 24.6 Const: General: confusion Orientation/consciousness: confusion HENMT: Head: Yes normal to inspection Mouth: oropharynx normal Resp: Effort & Inspection: normal respiratory effort Cardio: Rate: regular rate Rhythm: regular rhythm GI: Inspection: Yes normal to inspection : General: Yes no CVA tenderness Back/Spine/Pelvis: Back: no CVA tenderness Skin: General skin exam: no rashes or lesions noted Neuro: Other: confused General: confusion Extrem: General: Yes normal to inspection Assessment and Plan (1) Altered mental status: Problem details: Likely due to gram positive cocci,showed on 07/19 Possible endocarditis Status: Acute Continue Vancomycin Check echo Likely 4 weeks IV antibiotics (2) Delirium: Status: Acute Results Labs CBC & Chem 7: 07/20/20 06:08 07/20/20 10:30 Labs: Short CBC 07/20/20 Range/Units 06:08 WBC 12.9 H (4.8-10.8) X10*3/uL Hgb 12.5 L (14.0-18.0) g/dl Hct 38.2 L (42-52) % Plt Count 195 (160-400) X10*3/uL BMP 07/19/20 07/19/20 07/20/20 14:44 19:30 00:54 Sodium 152 H 152 H 150 H Potassium 3.8 3.4 3.3 Chloride 125 H 124 H 123 H Carbon Dioxide 20 L 19 L 18 L BUN 20 H 20 H 18 H Creatinine 1.10 1.09 1.08 Calcium 8.9 8.7 8.5 07/20/20 07/20/20 06:08 10:30 Sodium 151 H 152 H Potassium 3.6 3.4 Chloride 123 H 123 H Carbon Dioxide 19 L 21 L BUN 16 16 Creatinine 1.04 1.02 Calcium 8.5 8.6 Cardiac Enzymes 07/20/20 Range/Units 06:08 Total Creatine Kinase 933 H D (38-174) U/L Liver Function 07/19/20 07/20/20 Range/Units 14:44 06:08 Total Bilirubin 1.0 1.0 (0.0-1.0) mg/dL Direct Bilirubin 0.4 0.4 (0.0-0.5) mg/dL AST 123 H 82 H (5-37) U/L ALT 101 H 89 H (0-40) U/L Alkaline Phosphatase 91 84 (39-117) U/L Albumin 4.3 3.6 (3.5-5.0) g/dL Urine 07/19/20 Range/Units 16:59 Urine Color YELLOW Urine Appearance CLEAR Urine pH 6.0 (5.0-8.0) Ur Specific Howe 1.015 (1.005-1.025) Urine Protein NEG (NEG-TRACE) MG/DL Urine Glucose (UA) NEG (NEG) MG/DL Microbiology Microbiology Results: Microbiology 07/19/20 08:45 Blood - Venous Blood Culture - Preliminary 07/18/20 17:11 Cerebrospinal Fluid Gram Stain - Final 07/18/20 17:11 Cerebrospinal Fluid CSF Examination - Final 07/18/20 17:11 Cerebrospinal Fluid Gross Specimen Examination - Final 07/18/20 17:11 Cerebrospinal Fluid CSF Culture - Preliminary No growth after 2 days 07/19/20 08:40 Blood - Venous Blood Culture - Preliminary 07/17/20 22:46 Blood - Venous Blood Culture - Preliminary No growth after 48 hours. 07/17/20 22:46 Blood - Venous Blood Culture - Preliminary No growth after 48 hours.
--- NOTE | 2020-07-20 15:13 | HO.PM.IMPN ---
Subjective Subjective Date of Service: 07/20/20 Interval History: seen and examined this AM this AM very lethargic, but slowly awoke became more lucid and had a full conversation Physical Exam Vital Signs: Vital Signs: Last Vital Signs Temp 97.9 F 07/20/20 11:52 Pulse 90 07/20/20 11:52 Resp 18 07/20/20 11:52 BP 159/78 H 07/20/20 11:52 Pulse Ox 99 07/20/20 11:52 Body Mass Index 24.6 Const: Other: General - no acute distress, appears comfortable Cardiovascular - regular rate and rhythm, S1-S2 Lungs - normal respiratory effort, clear to auscultation bilaterally, no wheezing Abdomen - soft, nontender, no rebound or guarding Extremities - no edema bilaterally Neuro - disoriented / aphasic Objective Data Current Medications Generic Name Dose Route Start Last Admin Trade Name Freq PRN Reason Stop Dose Admin Acetaminophen 650 mg 07/18/20 20:17 07/19/20 18:03 Acetaminophen 325 Mg Tablet PO 650 mg Q6H PRN Administration Pain, Mild (Pain Scale 1-3) Atenolol 25 mg 07/18/20 21:00 07/20/20 10:08 Atenolol 25 Mg Tablet PO 25 mg BID ORACIO Administration Protocol Clomipramine HCl 25 mg 07/18/20 21:00 07/19/20 20:27 Clomipramine Hcl 25 Mg Capsule PO 25 mg BEDTIME ORACIO Administration Docusate Sodium 100 mg 07/18/20 20:17 Docusate Sodium 100 Mg Capsule PO DAILY PRN Constipation Gabapentin 300 mg 07/19/20 21:00 07/20/20 14:44 Gabapentin 300 Mg Capsule PO Not Given TID ORACIO Dextrose 1,000 mls @ 125 mls/hr 07/19/20 16:15 07/20/20 13:23 D5w IVCONT 125 mls/hr .Q8H ORACIO Administration Vancomycin HCl 750 mg/ Sodium 265 mls @ 265 mls/hr 07/20/20 14:00 Chloride IV Q12H ORACIO Liothyronine Sodium 25 mcg 07/19/20 09:00 07/20/20 10:08 Liothyronine Sodium 25 Mcg Tablet PO 25 mcg DAILY ORACIO Administration Lorazepam 1 mg 07/18/20 21:00 07/20/20 14:44 Lorazepam 1 Mg Tablet PO Not Given TID ORACIO Lorazepam 2 mg 07/19/20 16:36 Lorazepam 2 Mg/Ml Vial IVPUSH Q6H PRN anxiety Ondansetron HCl 4 mg 07/18/20 20:17 Ondansetron Hcl 4 Mg/2 Ml Vial IVPUSH Q8H PRN Nausea and Vomiting Pharmacy Consult 1 each 07/18/20 00:51 Consult Rx Perform Med Rec MISCELLANE ONCE PRN Consult order Pharmacy Consult 1 each 07/20/20 01:49 Consult Rx Vancomycin Dosing MISCELLANE DAILY PRN Consult order Sodium Chloride 3 ml 07/19/20 00:00 07/20/20 10:08 0.9 % Sodium Chloride Flush 3 Ml Syringe IVFLUSH Not Given QSHIFT ORACIO Venlafaxine HCl 75 mg 07/18/20 13:35 07/20/20 10:08 Venlafaxine Hcl Er 75 Mg Cap.Er.24h PO 75 mg DAILY ORACIO Administration Labs CBC & Chem 7: 07/20/20 06:08 07/20/20 10:30 Microbiology Microbiology Results: Microbiology 07/19/20 08:45 Blood - Venous Blood Culture - Preliminary 07/18/20 17:11 Cerebrospinal Fluid Gram Stain - Final 07/18/20 17:11 Cerebrospinal Fluid CSF Examination - Final 07/18/20 17:11 Cerebrospinal Fluid Gross Specimen Examination - Final 07/18/20 17:11 Cerebrospinal Fluid CSF Culture - Preliminary No growth after 2 days 07/19/20 08:40 Blood - Venous Blood Culture - Preliminary 07/17/20 22:46 Blood - Venous Blood Culture - Preliminary No growth after 48 hours. 07/17/20 22:46 Blood - Venous Blood Culture - Preliminary No growth after 48 hours. Assessment and Plan (1) Rhabdomyolysis: Status: Acute (2) Aphasia: Status: Acute (3) Altered mental status: Status: Acute Assessment and Plan: This is a [id number]-year-old male with a past medical history of bipolar disorder who presented to the hospital with acute neurological changes. He is admitted for further workup. 1. Encephalopathy Improved and patient lucid this AM. EEG done -- d/w Dr. Puckett, no evidence of seizure activity. MRI d/w Dr. Puckett -- no acute issues ? related to meds vs other (non-neurological) infectious process LP negative 2. GPC bacteremia ? endocarditis -- echo to be done vancomcyin repeat blood cx tomorrow 3. Mood Continue medications as recommended by psychiatry 4. Rhabdomyolysis resolving 5. Hypernatremia still persists, increased d5W to 125 cc/hr recheck bmp now 6. Urinary retention keep doherty, voiding trial tomorrow 6. Hypertension/tachycardia Continues atenolol Full Code DVT pptx, start pharmcological tomorrow (had LP yesterday)
[2020-07-20] MEDS: vancomycin HCL 750 MG in 0.9 % Sodium Chloride 250 ML 265 MG IV (15:26)
[2020-07-20] MEDS: 0.9 % Sodium Chloride Flush 3 ML SYRINGE IVFLUSH (15:27)
--- NOTE | 2020-07-20 16:05 | MHC.CM.PN ---
PT WILL STAY THROUGH WEEKEND, ? PENITENTIARY IV ABX DUE TO BACTEREMIA OR INPT PSYCH ADMIT WHEN MEDICALLY CLEARED.
[2020-07-20 18:41] LABS: Anion Gap 11 (12-20); Blood Urea Nitrogen 15 mg/dL (9-16); Calcium 8.9 mg/dL (8.4-10.2); Carbon Dioxide 21 mmol/L (22-29); Chloride 122 mmol/L (96-108); Creatinine Clr Calc Pharmacy 79.1; Estimated Glomerular Filt Rate > 60; Glucose Random 104 mg/dL (60-115); Potassium 3.7 mmol/l (3.3-5.1); Sodium 150 mmol/L (135-145)
[2020-07-20 18:53] LABS: Lyme (B. burgdorferi) PCR NOT DETECTED (NOT DETECTED)
[2020-07-20] MEDS: Gabapentin 100 MG CAPSULE PO (20:43)
[2020-07-20] MEDS: QUEtiapine Fumarate 25 MG TABLET PO (20:43)
[2020-07-20] MEDS: clomiPRAMINE HCl 25 MG CAPSULE PO (20:43)
[2020-07-20 23:41] LABS: Anion Gap 13 (12-20); Blood Urea Nitrogen 14 mg/dL (9-16); Calcium 8.4 mg/dL (8.4-10.2); Carbon Dioxide 20 mmol/L (22-29); Chloride 114 mmol/L (96-108); Creatinine Clr Calc Pharmacy 84.1; Estimated Glomerular Filt Rate > 60; Glucose Random 97 mg/dL (60-115); Potassium 3.4 mmol/l (3.3-5.1); Sodium 144 mmol/L (135-145)
[2020-07-21] MEDS: vancomycin HCL 750 MG in 0.9 % Sodium Chloride 250 ML 265 MG IV ×2 (02:04→15:13)
[2020-07-21 03:35] VITALS: BP 140/85; PULSE 72; RESP 16; O2SAT 99
[2020-07-21] MEDS: Dextrose 5 % 1,000 ML 125 ML IVCONT (05:31)
[2020-07-21 07:10] VITALS: BP 126/80; PULSE 62; RESP 16; TEMP 36.6; O2SAT 99
[2020-07-21 09:03] LABS: Hematocrit 41.5 % (42-52); Hemoglobin 14.1 g/dl (14.0-18.0); Mean Corpuscular Volume 94.1 fL (80-98); Mean Platelet Volume 10.6 fL (9.4-12.4); Platelet Count 239 X10*3/uL (160-400); Red Blood Count 4.41 X10*6/uL (4.60-5.80); Red Cell Distribution Width 12.3 % (11.0-16.0); White Blood Count 13.1 X10*3/uL (4.8-10.8)
[2020-07-21] MEDS: atenoloL 25 MG TABLET PO ×2 (09:15→21:20)
[2020-07-21] MEDS: Venlafaxine HCl ER 75 MG CAP.ER.24H PO (09:15)
[2020-07-21] MEDS: QUEtiapine Fumarate 25 MG TABLET PO ×3 (09:15→21:20)
[2020-07-21] MEDS: Gabapentin 100 MG CAPSULE PO ×3 (09:15→21:20)
[2020-07-21] MEDS: Liothyronine Sodium 25 MCG TABLET PO (09:18)
[2020-07-21] MEDS: 0.9 % Sodium Chloride Flush 3 ML SYRINGE IVFLUSH ×3 (09:19→23:01)
[2020-07-21 09:30] LABS: Anion Gap 14 (12-20); Blood Urea Nitrogen 12 mg/dL (9-16); Calcium 8.7 mg/dL (8.4-10.2); Carbon Dioxide 20 mmol/L (22-29); Chloride 113 mmol/L (96-108); Creatinine Clr Calc Pharmacy 79.9; Estimated Glomerular Filt Rate > 60; Glucose Random 91 mg/dL (60-115); Potassium 3.3 mmol/l (3.3-5.1); Sodium 144 mmol/L (135-145)
[2020-07-21 10:39] VITALS: BP 126/76; PULSE 71; RESP 17; TEMP 36.3; O2SAT 99
--- NOTE | 2020-07-21 11:44 | P.PNIM_ITS ---
Subjective Subjective Date of Service: 07/21/20 Interval History: seen and examined this AM alert and oriented denies complaints, has some recollection of last few days Physical Exam Vital Signs: Vital Signs: Last Vital Signs Temp 97.3 F 07/21/20 10:39 Pulse 71 07/21/20 10:39 Resp 17 07/21/20 10:39 BP 126/76 07/21/20 10:39 Pulse Ox 99 07/21/20 10:39 Body Mass Index 24.6 Const: Other: General - no acute distress, appears comfortable Cardiovascular - regular rate and rhythm, S1-S2 Lungs - normal respiratory effort, clear to auscultation bilaterally, no w heezing Abdomen - soft, nontender, no rebound or guarding Extremities - no edema bilaterally Neuro - Awake and alert; oriented to person, place, day Objective Data Current Medications Generic Name Dose Route Start Last Admin Trade Name Freq PRN Reason Stop Dose Admin Acetaminophen 650 mg 07/18/20 20:17 07/19/20 18:03 Acetaminophen 325 Mg Tablet PO 650 mg Q6H PRN Administration Pain, Mild (Pain Scale 1-3) Acetaminophen 650 mg 07/20/20 17:54 Acetaminophen 325 Mg Tablet PO Q6H PRN PAINFEV Atenolol 25 mg 07/18/20 21:00 07/21/20 09:15 Atenolol 25 Mg Tablet PO 25 mg BID ORACIO Administration Protocol Clomipramine HCl 25 mg 07/18/20 21:00 07/20/20 20:43 Clomipramine Hcl 25 Mg Capsule PO 25 mg BEDTIME ORACIO Administration Docusate Sodium 100 mg 07/18/20 20:17 Docusate Sodium 100 Mg Capsule PO DAILY PRN Constipation Gabapentin 100 mg 07/20/20 21:00 07/21/20 09:15 Gabapentin 100 Mg Capsule PO 100 mg TID ORACIO Administration Vancomycin HCl 750 mg/ Sodium 265 mls @ 265 mls/hr 07/20/20 14:00 07/21/20 03:12 Chloride IV Infused Q12H ORACIO Infusion Liothyronine Sodium 25 mcg 07/19/20 09:00 07/21/20 09:18 Liothyronine Sodium 25 Mcg Tablet PO 25 mcg DAILY ORACIO Administration Lorazepam 2 mg 07/19/20 16:36 Lorazepam 2 Mg/Ml Vial IVPUSH Q6H PRN anxiety Ondansetron HCl 4 mg 07/18/20 20:17 Ondansetron Hcl 4 Mg/2 Ml Vial IVPUSH Q8H PRN Nausea and Vomiting Pharmacy Consult 1 each 07/18/20 00:51 Consult Rx Perform Med Rec MISCELLANE ONCE PRN Consult order Pharmacy Consult 1 each 07/20/20 01:49 Consult Rx Vancomycin Dosing MISCELLANE DAILY PRN Consult order Quetiapine Fumarate 25 mg 07/20/20 17:30 07/21/20 09:15 Quetiapine Fumarate 25 Mg Tablet PO 25 mg TID ORACIO Administration Sodium Chloride 3 ml 07/19/20 00:00 07/21/20 09:19 0.9 % Sodium Chloride Flush 3 Ml Syringe IVFLUSH 3 ml QSHIFT ORACIO Administration Venlafaxine HCl 75 mg 07/18/20 13:35 07/21/20 09:15 Venlafaxine Hcl Er 75 Mg Cap.Er.24h PO 75 mg DAILY ORACIO Administration Labs CBC & Chem 7: 07/21/20 08:48 07/21/20 08:48 Microbiology Microbiology Results: Microbiology 07/18/20 17:11 Cerebrospinal Fluid Gram Stain - Final 07/18/20 17:11 Cerebrospinal Fluid CSF Examination - Final 07/18/20 17:11 Cerebrospinal Fluid Gross Specimen Examination - Final 07/18/20 17:11 Cerebrospinal Fluid CSF Culture - Preliminary No growth after 2 days 07/19/20 08:40 Blood - Venous Blood Culture - Preliminary Coagulase-neg Staphyloccocus 07/19/20 08:45 Blood - Venous Blood Culture - Preliminary Coagulase-neg Staphyloccocus 07/17/20 22:46 Blood - Venous Blood Culture - Preliminary No growth after 48 hours. 07/17/20 22:46 Blood - Venous Blood Culture - Preliminary No growth after 48 hours. Assessment and Plan (1) Rhabdomyolysis: Status: Acute (2) Aphasia: Status: Acute (3) Altered mental status: Status: Acute Assessment and Plan: This is a [id number]year-old male with a past medical history of bipolar disorder who presented to the hospital with acute neurological changes. He is admitted for further workup. 1. Encephalopathy improving, cause unclear EEG/MRI negative ? related to meds vs other (non-neurological) infectious process LP negative 2. Coag Neg. Staph Bacteremia - 2/2 bottles ? contaminant re-culture ID f/u echo neg for vegetations 3. Mood Continue medications as recommended by psychiatry 4. Rhabdomyolysis resolving 5. Hypernatremia resolved stop hypotonic saline 6. Urinary retention voiding trial today 6. Hypertension Continues atenolol Full Code DVT pptx, lovenox
[2020-07-21] MEDS: Enoxaparin Sodium 40 MG/0.4 ML SYRINGE SUBCUT (12:46)
[2020-07-21 14:24] LABS: Vancomycin Trough 12.2 mcg/mL (10.0-20.0)
[2020-07-21 15:35] VITALS: BP 130/84; PULSE 77; RESP 17; TEMP 36.2; O2SAT 99
[2020-07-21 19:48] VITALS: BP 141/83; PULSE 76; RESP 18; TEMP 36.3; O2SAT 100
[2020-07-21] MEDS: clomiPRAMINE HCl 25 MG CAPSULE PO (21:20)
[2020-07-21 23:53] VITALS: BP 159/88; PULSE 83; RESP 16; TEMP 37.4; O2SAT 99
[2020-07-22] VITALS: BP 118/62; PULSE 75; RESP 16; TEMP 37.1; O2SAT 96
[2020-07-22 07:09] LABS: Hematocrit 39.8 % (42-52); Hemoglobin 13.5 g/dl (14.0-18.0); Mean Corpuscular HGB Conc 33.9 g/dl (31.0-36.0); Mean Corpuscular Hemoglobin 31.6 pg (27.0-33.0); Mean Corpuscular Volume 93.2 fL (80-98); Mean Platelet Volume 10.9 fL (9.4-12.4); Platelet Count 231 X10*3/uL (160-400); Red Blood Count 4.27 X10*6/uL (4.60-5.80)
[2020-07-22 07:26] LABS: Anion Gap 11 (12-20); Blood Urea Nitrogen 13 mg/dL (9-16); Calcium 8.8 mg/dL (8.4-10.2); Carbon Dioxide 24 mmol/L (22-29); Chloride 116 mmol/L (96-108); Creatinine Clr Calc Pharmacy 71.4; Estimated Glomerular Filt Rate > 60; Glucose Random 95 mg/dL (60-115); Potassium 3.8 mmol/l (3.3-5.1); Sodium 147 mmol/L (135-145)
[2020-07-22 07:52] VITALS: BP 160/87; PULSE 72; RESP 18; TEMP 36.3; O2SAT 100
--- NOTE | 2020-07-22 08:45 | HO.PM.IMPN ---
Subjective Subjective Date of Service: 07/22/20 Interval History: seen and examined this AM no complaints able to recall events last 24 hours ROS General - no fevers or chills Cardiovascular - no chest pain Respiratory - no shortness of breath or cough Abdominal- no abdominal pain, nausea, vomiting, diarrhea Physical Exam Vital Signs: Vital Signs: Last Vital Signs Temp 97.3 F 07/22/20 07:52 Pulse 72 07/22/20 07:52 Resp 18 07/22/20 07:52 BP 160/87 H 07/22/20 07:52 Pulse Ox 100 07/22/20 07:52 Body Mass Index 24.6 Const: Other: General - no acute distress, appears comfortable Cardiovascular - regular rate and rhythm, S1-S2 Lungs - normal respiratory effort, clear to auscultation bilaterally, no wheezing Abdomen - soft, nontender, no rebound or guarding Extremities - no edema bilaterally Neuro - Awake and alert; Ox3 Objective Data Current Medications Generic Name Dose Route Start Last Admin Trade Name Freq PRN Reason Stop Dose Admin Acetaminophen 650 mg 07/18/20 20:17 07/19/20 18:03 Acetaminophen 325 Mg Tablet PO 650 mg Q6H PRN Administration Pain, Mild (Pain Scale 1-3) Acetaminophen 650 mg 07/20/20 17:54 Acetaminophen 325 Mg Tablet PO Q6H PRN PAINFEV Atenolol 25 mg 07/18/20 21:00 07/21/20 21:20 Atenolol 25 Mg Tablet PO 25 mg BID ORACIO Administration Protocol Clomipramine HCl 25 mg 07/18/20 21:00 07/21/20 21:20 Clomipramine Hcl 25 Mg Capsule PO 25 mg BEDTIME ORACIO Administration Docusate Sodium 100 mg 07/18/20 20:17 Docusate Sodium 100 Mg Capsule PO DAILY PRN Constipation Enoxaparin Sodium 40 mg 07/21/20 12:00 07/21/20 12:46 Enoxaparin Sodium 40 Mg/0.4 Ml Syringe SUBCUT 40 mg Q24H ORACIO Administration Gabapentin 100 mg 07/20/20 21:00 07/21/20 21:20 Gabapentin 100 Mg Capsule PO 100 mg TID ORACIO Administration Dextrose 1,000 mls @ 100 mls/hr 07/22/20 08:00 D5w IVCONT 07/22/20 17:59 .Q10H ORACIO Liothyronine Sodium 25 mcg 07/19/20 09:00 07/21/20 09:18 Liothyronine Sodium 25 Mcg Tablet PO 25 mcg DAILY ORACIO Administration Lorazepam 2 mg 07/19/20 16:36 Lorazepam 2 Mg/Ml Vial IVPUSH Q6H PRN anxiety Ondansetron HCl 4 mg 07/18/20 20:17 Ondansetron Hcl 4 Mg/2 Ml Vial IVPUSH Q8H PRN Nausea and Vomiting Pharmacy Consult 1 each 07/18/20 00:51 Consult Rx Perform Med Rec MISCELLANE ONCE PRN Consult order Pharmacy Consult 1 each 07/20/20 01:49 Consult Rx Vancomycin Dosing MISCELLANE DAILY PRN Consult order Quetiapine Fumarate 25 mg 07/20/20 17:30 07/21/20 21:20 Quetiapine Fumarate 25 Mg Tablet PO 25 mg TID ORACIO Administration Sodium Chloride 3 ml 07/19/20 00:00 07/21/20 23:01 0.9 % Sodium Chloride Flush 3 Ml Syringe IVFLUSH 3 ml QSHIFT ORACIO Administration Venlafaxine HCl 150 mg 07/22/20 09:00 Venlafaxine Hcl Er 150 Mg Cap.Er.24h PO DAILY ORACIO Labs CBC & Chem 7: 07/22/20 06:34 07/22/20 06:34 Microbiology Microbiology Results: Microbiology 07/19/20 08:45 Blood - Venous Blood Culture - Preliminary Staphylococcus hominis ssp marquis 07/19/20 08:40 Blood - Venous Blood Culture - Final Staphylococcus epidermidis 07/18/20 17:11 Cerebrospinal Fluid Gram Stain - Final 07/18/20 17:11 Cerebrospinal Fluid CSF Examination - Final 07/18/20 17:11 Cerebrospinal Fluid Gross Specimen Examination - Final 07/18/20 17:11 Cerebrospinal Fluid CSF Culture - Preliminary No growth after 2 days 07/17/20 22:46 Blood - Venous Blood Culture - Preliminary No growth after 48 hours. 07/17/20 22:46 Blood - Venous Blood Culture - Preliminary No growth after 48 hours. Assessment and Plan (1) Rhabdomyolysis: Status: Acute (2) Aphasia: Status: Acute (3) Altered mental status: Status: Acute Assessment and Plan: This is a [id number]year-old male with a past medical history of bipolar disorder who presented to the hospital with acute neurological changes. He is admitted for further workup. 1. Encephalopathy resolved, cause unclear EEG/MRI negative infectious etiology ruled out: LP negative, blood cx contaminant d/w Neuro - suspect cause psychiatric in nature 2. Coag Neg. Staph Bacteremia - 2/2 bottles (staph epi / staph hominis) false positive/contaminant vancomyin discontinued per ID recs repeat cx sent yesterday 3. Mood Continue medications as recommended by psychiatry f/u with Dr. Zuniga tomorrow 4. Rhabdomyolysis resolved 5. Hypernatremia encourage PO, recheck this afternoon D5W if not improved with PO 6. Urinary retention resolved 6. Hypertension Continues atenolol Full Code DVT pptx, lovenox
[2020-07-22] MEDS: Gabapentin 100 MG CAPSULE PO ×3 (09:26→21:07)
[2020-07-22] MEDS: 0.9 % Sodium Chloride Flush 3 ML SYRINGE IVFLUSH ×3 (09:26→21:08)
[2020-07-22] MEDS: Liothyronine Sodium 25 MCG TABLET PO (09:27)
[2020-07-22] MEDS: QUEtiapine Fumarate 25 MG TABLET PO ×3 (09:27→21:07)
[2020-07-22] MEDS: atenoloL 25 MG TABLET PO ×2 (09:27→21:07)
[2020-07-22] MEDS: Venlafaxine HCl ER 150 MG CAP.ER.24H PO (09:27)
[2020-07-22 12:00] VITALS: BP 150/84; PULSE 71; RESP 18; TEMP 36.2; O2SAT 100
[2020-07-22 14:52] LABS: Anion Gap 12 (12-20); Blood Urea Nitrogen 16 mg/dL (9-16); Calcium 8.6 mg/dL (8.4-10.2); Carbon Dioxide 26 mmol/L (22-29); Chloride 111 mmol/L (96-108); Creatinine Clr Calc Pharmacy 69.6; Estimated Glomerular Filt Rate > 60; Glucose Random 74 mg/dL (60-115); Potassium 3.2 mmol/l (3.3-5.1); Sodium 146 mmol/L (135-145)
[2020-07-22 15:17] VITALS: BP 137/84; PULSE 80; RESP 18; TEMP 36.7; O2SAT 99
[2020-07-22] MEDS: Potassium Chloride ER 20 MEQ TAB.ER.PRT 60 MEQ PO (15:34)
[2020-07-22 16:51] LABS: VDRL Qualitative CSF Nonreactive (Nonreactive)
[2020-07-22 19:16] VITALS: BP 141/85; PULSE 72; RESP 18; TEMP 36.8; O2SAT 100
[2020-07-22 21:07] VITALS: BP 141/85; PULSE 67
[2020-07-22] MEDS: clomiPRAMINE HCl 25 MG CAPSULE PO (21:07)
[2020-07-23] VITALS: BP 141/78; PULSE 65; RESP 18; TEMP 36.8; O2SAT 100
[2020-07-23 03:50] VITALS: BP 149/86; PULSE 65; RESP 18; TEMP 36.2; O2SAT 100
[2020-07-23 06:10] LABS: Anion Gap 11 (12-20); Blood Urea Nitrogen 17 mg/dL (9-16); Calcium 9.2 mg/dL (8.4-10.2); Carbon Dioxide 24 mmol/L (22-29); Chloride 113 mmol/L (96-108); Creatinine Clr Calc Pharmacy 65.1; Estimated Glomerular Filt Rate > 60; Glucose Random 127 mg/dL (60-115); Potassium 4.1 mmol/l (3.3-5.1); Sodium 144 mmol/L (135-145)
[2020-07-23 07:53] VITALS: BP 134/81; PULSE 60; RESP 18; TEMP 36.4; O2SAT 100
[2020-07-23] MEDS: Liothyronine Sodium 25 MCG TABLET PO (09:01)
[2020-07-23] MEDS: atenoloL 25 MG TABLET PO (09:01)
[2020-07-23] MEDS: Venlafaxine HCl ER 150 MG CAP.ER.24H PO (09:01)
[2020-07-23] MEDS: Gabapentin 100 MG CAPSULE PO ×2 (09:01→16:00)
[2020-07-23] MEDS: 0.9 % Sodium Chloride Flush 3 ML SYRINGE IVFLUSH (09:02)
[2020-07-23] MEDS: QUEtiapine Fumarate 25 MG TABLET PO ×2 (09:02→15:59)
--- NOTE | 2020-07-23 09:33 | P.PNIM_ITS ---
Subjective Subjective Date of Service: 07/23/20 Interval History: seen and examined this AM reports feeling better denies confusion but unclear the events prior to coming to hospitalization denies discontinuation of his meds. denies any new meds or illicit substances. reports smoking marijuana for the last 5-6 months but no acute changes ROS General - no fevers or chills Cardiovascular - no chest pain Respiratory - no shortness of breath or cough Abdominal- no abdominal pain, nausea, vomiting, diarrhea Physical Exam Vital Signs: Vital Signs: Last Vital Signs Temp 97.6 F 07/23/20 07:53 Pulse 60 07/23/20 07:53 Resp 18 07/23/20 07:53 BP 134/81 07/23/20 07:53 Pulse Ox 100 07/23/20 07:53 Body Mass Index 24.6 Const: Other: General - no acute distress, appears comfortable Cardiovascular - regular rate and rhythm, S1-S2 Lungs - normal respiratory effort, clear to auscultation bilaterally, no wheezing Abdomen - soft, nontender, no rebound or guarding Extremities - no edema bilaterally Neuro - Awake and alert; Ox3 Objective Data Current Medications Generic Name Dose Route Start Last Admin Trade Name Freq PRN Reason Stop Dose Admin Acetaminophen 650 mg 07/18/20 20:17 07/19/20 18:03 Acetaminophen 325 Mg Tablet PO 650 mg Q6H PRN Administration Pain, Mild (Pain Scale 1-3) Acetaminophen 650 mg 07/20/20 17:54 Acetaminophen 325 Mg Tablet PO Q6H PRN PAINFEV Atenolol 25 mg 07/18/20 21:00 07/23/20 09:01 Atenolol 25 Mg Tablet PO 25 mg BID ORACIO Administration Protocol Clomipramine HCl 25 mg 07/18/20 21:00 07/22/20 21:07 Clomipramine Hcl 25 Mg Capsule PO 25 mg BEDTIME ORACIO Administration Docusate Sodium 100 mg 07/18/20 20:17 Docusate Sodium 100 Mg Capsule PO DAILY PRN Constipation Enoxaparin Sodium 40 mg 07/21/20 12:00 07/22/20 13:05 Enoxaparin Sodium 40 Mg/0.4 Ml Syringe SUBCUT Not Given Q24H ORACIO Gabapentin 100 mg 07/20/20 21:00 07/23/20 09:01 Gabapentin 100 Mg Capsule PO 100 mg TID ORACIO Administration Liothyronine Sodium 25 mcg 07/19/20 09:00 07/23/20 09:01 Liothyronine Sodium 25 Mcg Tablet PO 25 mcg DAILY ORACIO Administration Lorazepam 2 mg 07/19/20 16:36 Lorazepam 2 Mg/Ml Vial IVPUSH Q6H PRN anxiety Ondansetron HCl 4 mg 07/18/20 20:17 Ondansetron Hcl 4 Mg/2 Ml Vial IVPUSH Q8H PRN Nausea and Vomiting Pharmacy Consult 1 each 07/18/20 00:51 Consult Rx Perform Med Rec MISCELLANE ONCE PRN Consult order Pharmacy Consult 1 each 07/20/20 01:49 Consult Rx Vancomycin Dosing MISCELLANE DAILY PRN Consult order Quetiapine Fumarate 25 mg 07/20/20 17:30 07/23/20 09:02 Quetiapine Fumarate 25 Mg Tablet PO 25 mg TID ORACIO Administration Sodium Chloride 3 ml 07/19/20 00:00 07/23/20 09:02 0.9 % Sodium Chloride Flush 3 Ml Syringe IVFLUSH 3 ml QSHIFT ORACIO Administration Venlafaxine HCl 150 mg 07/22/20 09:00 07/23/20 09:01 Venlafaxine Hcl Er 150 Mg Cap.Er.24h PO 150 mg DAILY ORACIO Administration Labs CBC & Chem 7: 07/22/20 06:34 07/23/20 05:21 Microbiology Microbiology Results: Microbiology 07/19/20 08:45 Blood - Venous Blood Culture - Final Staphylococcus hominis ssp marquis 07/17/20 22:46 Blood - Venous Blood Culture - Final No growth after 5 days. 07/17/20 22:46 Blood - Venous Blood Culture - Final No growth after 5 days. 07/21/20 13:17 Blood - Venous Blood Culture - Preliminary No growth after 24 hours. 07/21/20 13:14 Blood - Venous Blood Culture - Preliminary No growth after 24 hours. 07/18/20 17:11 Cerebrospinal Fluid Gram Stain - Final 07/18/20 17:11 Cerebrospinal Fluid CSF Examination - Final 07/18/20 17:11 Cerebrospinal Fluid Gross Specimen Examination - Final 07/18/20 17:11 Cerebrospinal Fluid CSF Culture - Final No growth after 3 days. 07/19/20 08:40 Blood - Venous Blood Culture - Final Staphylococcus epidermidis Assessment and Plan (1) Rhabdomyolysis: Status: Acute (2) Aphasia: Status: Acute (3) Altered mental status: Status: Acute Assessment and Plan: This is a 41-hrnn-eha-year-old male with a past medical history of bipolar di sorder who presented to the hospital with acute neurological changes. He is admitted for further workup. 1. Encephalopathy resolved, cause unclear EEG/MRI negative infectious etiology ruled out: LP negative, blood cx contaminant d/w Neuro - suspect cause psychiatric in nature 2. Coag Neg. Staph Bacteremia - 2/2 bottles (staph epi / staph hominis) false positive/contaminant vancomyin discontinued per ID recs repeat blood cx negative 3. Mood Continue medications as recommended by psychiatry psych f/u today -- seen by Dr. Zuniga, plan to discharge today with [facility]. D/C on his inpatient med doses. 4. Rhabdomyolysis resolved 5. Hypernatremia resolved with PO intake 6. Urinary retention resolved 6. Hypertension Continues atenolol Full Code DVT pptx, lovenox medically cleared for discharge, pending repeat psych evaluation dispo: home today with vna
[2020-07-23 11:50] VITALS: BP 141/93; PULSE 60; RESP 18; TEMP 36.5; O2SAT 100
--- NOTE | 2020-07-23 12:33 | MHC.CARE ---
CARE team met with pt requested by . Pt is medically cleared at this time and awaiting to meet with Dr. Zuniga to discuss medications prior to discharge. Pt appears to present with a much more improved presentation. He is oriented x3 and is currently able to communicate and engage with CARE team. Pt demonstrates good insight and overall presentation is WNL. Pt reports he is unsure what caused this rapid decompensation however he is grateful for the intervention. Pt is encouraged to follow up with his providers and follow recommendations.
--- NOTE | 2020-07-23 15:17 | MHC.CM.PN ---
CM MET WITH PATIENT WHO IS ALERT AND ORIENTED X 3, PT REPORTS HE LIVES ALONE AND HAS BEEN COMPLIANT WITH MEDICATIONS AT HOME, PT REPORTS HE NO LONGER HAS A PRIMARY CARE PHYSICIAN DUE TO PROVIDER LEAVING PRACTICE, PT REPORT HE DOES SEE A PSYCHIATRIST AND THERAPIST. PT REPORTS HE HAS TWO BROTHERS AND ONE IS LOCAL AND WILL TRANSPORT HIM HOME. PT WAS OFFERED ASSISTANCE WITH [facility] AND WILL FOLLOW-UP WITH PATIENT. PT REPORTS HE WOULD LIKE TO GO HOME SOON POSSIBLE. CM SET UP PCP FOLLOW-UP APPT WITH BRETT CUADRA ON 08/01 AT 1500
--- NOTE | 2020-07-23 15:40 | W.MHC.F2F ---
Service Date Service Date: 07/23/20 Encounter Date of encounter: 07/23/20 Reasons for Services Reason for penitentiary: medication management and medication treatment MD Overseeing Care: Chavez Zuniga Homebound: Leaving the home is medically contraindicated at this time without the asist of a device and/or another person due th the listed conditions above and below. Reason homebound: psychologically impaired / unsafe and weakness related to hospital stay Certification: Based on the above findings, I certify that this patient is confined to the home and needs intermittent penitentiary care, physical therapy and/or speech therapy, or continues to need occupational therapy. The patient is under my care, and I have initiated the establishment of the plan of care. The patient will be followed by a physician who will periodically review the plan of care.
--- NOTE | 2020-07-23 15:41 | PM.DS ---
DS: Providers Provider Date of admission: 07/18/20 16:08 Primary care physician: Unknown Physician Consults: 07/18/20 06:35 Consult to Psychiatry Stat Consulting Provider: Chavez Zuniga Reason for consultation: Medication Adjustment 07/18/20 20:17 Consult to Psychiatry Routine Consulting Provider: Ivanna Jones Reason for consultation: Bipolar disorder, confusion Has provider been notified: No 07/19/20 07:49 Consult to Neurology Routine Consulting Provider: [facility] Reason for consultation: altered mental status, fevers 07/19/20 17:57 Consult to Infectious Diseases Routine Consulting Provider: Kim Rey Reason for consultation: fevers, confusion -- no source DS: Diagnosis Discharge Diagnosis (1) Acute encephalopathy: Status: Acute (2) Rhabdomyolysis: Status: Acute (3) Delirium: Status: Acute (4) Bacteremia: Status: Acute DS: Medications Discharge Medications Home Medications: Home Medications Medication Instructions Recorded Confirmed atenolol 25 mg PO BID 07/17/20 07/18/20 liothyronine 25 mcg PO DAILY 07/17/20 07/18/20 Previous Rx's Medication Instructions Recorded clomipramine 25 mg PO BEDTIME #30 cap 07/23/20 gabapentin 100 mg PO TID #90 cap 07/23/20 quetiapine 25 mg PO TID #90 tab 07/23/20 venlafaxine 150 mg PO DAILY #30 cap 07/23/20 DS: Summary Hospital Course Hospital Course: From the admission H&P: This is a 55-year-old male with a history of bipolar disorder who was brought to the emergency department after his psychologist called EMS due to a mental status change during a tele health visit. He was reportedly at his baseline last week during their visit. In the emergency department his vital signs were stable. Lab work revealed leukocytosis of 19.6 but no source of infection was identified. [place] level was 0.25. Tox screen was positive for marijuana. Brain CT was unremarkable. He was cleared and moved to this behavioral health [facility] where he was evaluated by the Behavioral Health provider. They were concerned that his symptoms were not psychiatric in nature and should have further medical workup. CPK was checked and noted to be around 4000. White count had improved to 16,000 thousand. Given his altered mental status the decision was made to obtain an LP in the emergency department as well as an MRI of his brain. Therefore he is being admitted to medical service for further workup. The patient himself is unable to provide any history Hospital Course: Patient presented with acute mental status changes and this was initially felt to be psychiatric in nature. However he was seen by the Psychiatry team while in the emergency room and felt that this was more medical in nature. He was subsequently admitted under the medical services and workup was initiated. Meningitis was ruled out with a negative LP and a negative [facility] meningitis encephalitis panel. Seizures were ruled out with a negative EEG and MRI was completed which did not show any acute findings. Neurology felt that his presentation was more psychiatric in nature. Other infectious etiologies were also ruled out. His course was complicated by pseudobacteremia. His blood cultures while in the emergency room were negative, however repeat cultures which were checked during the hospitalization initially showed Gram-positive cocci and so he was treated with vancomycin. A 2D echo was completed which did not show any vegetations. His blood cultures returned positive as Staph epidermidis in 1 bottle and Staph hominis in the other. Case was read discussed with Infectious Disease and these were deemed contaminants and so antibiotics were discontinued. Overall, no definitive cause of his presenting delirium/encephalopathy was found. Nonetheless, patient has significant improvements with adjustments of some of his psychiatric medications. He was seen by his psychiatrist on the day of discharge, Dr. Zuniga who felt that he was basically at baseline and did not need any inpatient psych treatment. He will be discharged home with close follow-up with VNA as well as Psychiatry. He also will be referred to a primary care provider for his medical care. He will also be referred to Neurology for follow-up as needed. Time Spent with Patient Time attestation: Total time spent providing and/or coordinating discharge services: Physical Exam Vital Signs: Vital Signs: Last Vital Signs Temp 97.7 F 07/23/20 11:50 Pulse 60 07/23/20 11:50 Resp 18 07/23/20 11:50 BP 141/93 H 07/23/20 11:50 Pulse Ox 100 07/23/20 11:50 Body Mass Index 24.6 Const: Other: General - no acute distress, appears comfortable Cardiovascular - regular rate and rhythm, S1-S2 Lungs - normal respiratory effort, clear to auscultation bilaterally, no wheezing Abdomen - soft, nontender, no rebound or guarding Extremities - no edema bilaterally Neuro - awake and alert, no focal deficits DS: Data Data Completed and Pending Labs on day of discharge: Laboratory Last Values WBC 11.0 X10*3/uL (4.8-10.8) H 07/22/20 06:34 RBC 4.27 X10*6/uL (4.60-5.80) L 07/22/20 06:34 Hgb 13.5 g/dl (14.0-18.0) L 07/22/20 06:34 Hct 39.8 % (42-52) L 07/22/20 06:34 MCV 93.2 fL (80-98) 07/22/20 06:34 MCH 31.6 pg (27.0-33.0) 07/22/20 06:34 MCHC 33.9 g/dl (31.0-36.0) 07/22/20 06:34 RDW 12.0 % (11.0-16.0) 07/22/20 06:34 Plt Count 231 X10*3/uL (160-400) 07/22/20 06:34 MPV 10.9 fL (9.4-12.4) 07/22/20 06:34 Immature Gran % (Auto) 0.3 % (0.0-0.4) 07/19/20 06:04 Neut % (Auto) 82.3 % (45-73) H 07/19/20 06:04 Lymph % (Auto) 9.5 % (20-40) L 07/19/20 06:04 [place] % (Auto) 7.2 % (2-11) 07/19/20 06:04 Eos % (Auto) 0.3 % (0-4) 07/19/20 06:04 Baso % (Auto) 0.4 % (0-2) 07/19/20 06:04 Lymph # (Auto) 1.4 X10*3/uL (1.2-4.9) 07/19/20 06:04 [place] # (Auto) 1.1 X10*3/uL (0.1-1.2) 07/19/20 06:04 Eos # (Auto) 0.1 X10*3/uL (0.0-0.4) 07/19/20 06:04 Baso # (Auto) 0.1 X10*3/uL (0.0-0.2) 07/19/20 06:04 Abs Immat Gran (auto) 0.04 X10*3/uL (0.00-0.03) H 07/19/20 06:04 Absolute Neuts (auto) 12.4 X10*3/uL (2.0-8.3) H 07/19/20 06:04 Absolute Nucleated RBC 0.000 X10*3/uL (0.0-0.012) 07/22/20 06:34 Nucleated RBC % (auto) 0.0 /100WBC (0.0-0.2) 07/22/20 06:34 Smear Tech's Comments VERIFIED 07/17/20 20:18 PT 15.1 SEC (10.8-13.0) H 07/18/20 15:56 INR 1.3 (0.9-1.1) H 07/18/20 15:56 Sodium 144 mmol/L (135-145) 07/23/20 05:21 Potassium 4.1 mmol/l (3.3-5.1) D 07/23/20 05:21 Chloride 113 mmol/L (96-108) H 07/23/20 05:21 Carbon Dioxide 24 mmol/L (22-29) 07/23/20 05:21 Anion Gap 11 (12-20) L 07/23/20 05:21 BUN 17 mg/dL (9-16) H 07/23/20 05:21 Creatinine 1.24 mg/dL (0.5-1.4) 07/23/20 05:21 Estim Creat Clear Calc 65.1 07/23/20 05:21 Estimated GFR > 60 07/23/20 05:21 Random Glucose 127 mg/dL (60-115) H D 07/23/20 05:21 Lactic Acid 0.9 mmol/L (0.5-2.0) 07/19/20 08:39 Calcium 9.2 mg/dL (8.4-10.2) D 07/23/20 05:21 Total Bilirubin 1.0 mg/dL (0.0-1.0) 07/20/20 06:08 Direct Bilirubin 0.4 mg/dL (0.0-0.5) 07/20/20 06:08 AST 82 U/L (5-37) H 07/20/20 06:08 ALT 89 U/L (0-40) H 07/20/20 06:08 Alkaline Phosphatase 84 U/L (39-117) 07/20/20 06:08 Ammonia 35 umol/L (13-55) 07/18/20 13:16 Total Creatine Kinase 933 U/L (38-174) H D 07/20/20 06:08 Total Protein 5.8 g/dL (6.5-8.0) L 07/20/20 06:08 Albumin 3.6 g/dL (3.5-5.0) 07/20/20 06:08 Vitamin B12 634 pg/mL (200-900) 07/18/20 13:16 Folate > 20.0 ng/mL (> or = 4.0) 07/18/20 13:16 TSH 2.28 uIU/mL (0.32-4.0) 07/17/20 20:18 Urine Color YELLOW 07/19/20 16:59 Urine Appearance CLEAR 07/19/20 16:59 Urine pH 6.0 (5.0-8.0) 07/19/20 16:59 Ur Specific [place] 1.015 (1.005-1.025) 07/19/20 16:59 Urine Protein NEG MG/DL (NEG-TRACE) 07/19/20 16:59 Urine Glucose (UA) NEG MG/DL (NEG) 07/19/20 16:59 Urine Ketones NEG MG/DL (NEG) 07/19/20 16:59 Urine Blood 2+ (NEG) H 07/19/20 16:59 Urine Nitrite NEG (NEG) 07/19/20 16:59 Ur Leukocyte Esterase NEG (NEG) 07/19/20 16:59 Urine RBC 5-9 /HPF (0) H 07/19/20 16:59 Urine WBC 0-2 /HPF (0-4) 07/19/20 16:59 Ur Squamous Epith Cells TRACE /LPF 07/19/20 16:59 Uric Acid Crystals TRACE /LPF 07/18/20 00:26 Urine Bacteria NONE /LPF 07/19/20 16:59 Urine Mucus TRACE /LPF 07/18/20 00:26 Fld Lyme DNA (PCR) 07/18/20 17:11 CSF Tube Number 07/18/20 17:11 CSF Tube Number 4 07/18/20 17:11 CSF Tube Number Cancelled 07/18/20 17:11 CSF Tube Number TNP 07/18/20 17:11 CSF Volume 1.2 ML 07/18/20 17:11 CSF Volume Cancelled 07/18/20 17:11 CSF Volume TNP 07/18/20 17:11 CSF Appearance CLEAR 07/18/20 17:11 CSF Appearance Cancelled 07/18/20 17:11 CSF Appearance TNP 07/18/20 17:11 CSF Color COLORLESS 07/18/20 17:11 CSF Color Cancelled 07/18/20 17:11 CSF Color TNP 07/18/20 17:11 CSF WBC 0 MM*3 07/18/20 17:11 CSF WBC Cancelled 07/18/20 17:11 CSF WBC TNP 07/18/20 17:11 CSF RBC 1 MM*3 07/18/20 17:11 CSF RBC Cancelled 07/18/20 17:11 CSF RBC TNP 07/18/20 17:11 CSF Neutrophils Cancelled 07/18/20 17:11 CSF Lymphocytes Cancelled 07/18/20 17:11 CSF Monocytes % Cancelled 07/18/20 17:11 CSF Other Cells % Cancelled 07/18/20 17:11 CSF Appearance (b) 07/18/20 17:11 CSF Glucose 84 mg/dL 07/18/20 17:11 CSF Total Protein 45.4 mg/dL (15-45) H 07/18/20 17:11 CSF VDRL Nonreactive (Nonreactive) 07/18/20 17:11 CSF Lyme IgG (Immblot) Cancelled 07/18/20 17:11 CSF Lyme IgG Bands Det Cancelled 07/18/20 17:11 CSF Lyme IgM (Immblot) Cancelled 07/18/20 17:11 CSF Lyme IgM Bands Det Cancelled 07/18/20 17:11 CSF Herpes I DNA (PCR) Cancelled 07/18/20 17:11 CSF Herpes II DNA (PCR) Cancelled 07/18/20 17:11 CSF Mening/Enceph PCR See Note 07/18/20 17:11 Vancomycin Trough 12.2 mcg/mL (10.0-20.0) 07/21/20 13:14 Urine Opiates Screen Not Detected (Not Detect) 07/18/20 00:26 Ur Barbiturates Screen Not Detected (Not Detect) 07/18/20 00:26 Ur Phencyclidine Scrn Not Detected (Not Detect) 07/18/20 00:26 Ur Amphetamines Screen Not Detected (Not Detect) 07/18/20 00:26 U Benzodiazepines Scrn Not Detected (Not Detect) 07/18/20 00:26 [place] 0.25 mmol/L (0.60-1.20) L 07/17/20 20:18 Urine Cocaine Screen Not Detected (Not Detect) 07/18/20 00:26 U Marijuana (THC) Screen POSITIVE (Not Detect) H 07/18/20 00:26 Lyme Disease DNA (PCR) NOT DETECTED (NOT DETECTED) 07/18/20 17:11 Coronavirus (PCR) NEGATIVE (Negative) 07/17/20 22:47 Influenza Type A (PCR) NEGATIVE (Negative) 07/17/20 22:47 Influenza Type B (PCR) NEGATIVE (Negative) 07/17/20 22:47 RSV RNA Qual (PCR) NEGATIVE (Negative) 07/17/20 22:47 Body Source Cancelled 07/18/20 17:11 Preliminary micro results at discharge 07/21/20 13:17 Blood Culture - Preliminary Blood - Venous No growth after 24 hours. 07/21/20 13:14 Blood Culture - Preliminary Blood - Venous No growth after 24 hours. Discharge Plan Discharge Patient Disposition: Home Health Service Referrals: Edmundo Tapia MD [Physician] - Physician,Unknown [Primary Care Provider] - Discharge Medications: New quetiapine 25 mg Tablet 25 mg PO TID Qty: 90 RF: 0 venlafaxine 150 mg Capsule,Extended Release 24hr 150 mg PO DAILY Qty: 30 RF: 0 gabapentin 100 mg Capsule 100 mg PO TID Qty: 90 RF: 0 clomipramine 25 mg Capsule 25 mg PO BEDTIME Qty: 30 RF: 0 Continued liothyronine 25 mcg tablet 25 mcg PO DAILY RF: 0 atenolol 25 mg tablet 25 mg PO BID RF: 0 Discontinued venlafaxine 150 mg capsule,extended release 24hr 150 mg PO BID RF: 0 lithium carbonate 300 mg tablet extended release 600 mg PO BEDTIME RF: 0 clomipramine 50 mg capsule 100 mg PO BEDTIME RF: 0 quetiapine 300 mg tablet extended release 24 hr 600 mg PO BEDTIME RF: 0 Discharge Orders: Discharge Order (Routine); Ordered 07/23/20 Ordered By: Noam Evangelista Diet: advance to usual diet Activity on Discharge: As tolerated Visit Report Forms: Patient Portal Discharge page Care Plan Goals: To stay healthy and out of the hospital. Health Concerns: Delirium / Confusion Plan of Treatment: Please adhere to you medications and take them as prescribed.
[2020-07-23 15:58] VITALS: BP 126/77; PULSE 74; RESP 16; TEMP 3.2; TEMP 37.8; O2SAT 95
[2020-07-23 16:00] VITALS: BP 126/77; PULSE 74; RESP 16; TEMP 36.6; O2SAT 95
--- NOTE | 2020-07-23 16:23 | MHC.CM.PN ---
REFERRALS MADE TO [facility] FOR MED MANAGEMENT. [facility] UNABLE TO TAKE PT AT THIS TIME DUE TO STAFFING, [facility] WILL FOLLOW UP AND WAITING FOR RESPONSE FROM [facility].
--- NOTE | 2020-07-24 07:54 | MHC.CM.PN ---
PT DISCHARGED ON 07/23 AFTER CM LEFT FOR DAY, PT DISCHARGED HOME W/[facility] FOR MEDICATION MANAGEMENT VIA [facility]. [facility] TO START ON WEDNESDAY 07/25, PT AND COVERING PHYSICIAN AWARE.
== END 2020-07-23 18:00 | disposition home health service (06) | DRG 71 ==
LOC: HO.ED 07-18 15:42 → HO.S3 07-18 17:23
PROVIDERS: Internal Medicine; Nurse Practitioner Family; Physician Assistant Medical; Admitting Provider Family Medicine; Emergency Provider Internal Medicine; Visit Provider Family Medicine
DX: G93.40 Encephalopathy, unspecified (principal); M62.82 Rhabdomyolysis; E87.0 Hyperosmolality and hypernatremia; E03.9 Hypothyroidism, unspecified; I10 Essential (primary) hypertension; F31.9 Bipolar disorder, unspecified; R33.9 Retention of urine, unspecified; F42.9 Obsessive-compulsive disorder, unspecified; Z20.828 Contact with and (suspected) exposure to other viral communicable diseases; Z79.890 Hormone replacement therapy; Z79.899 Other long term (current) drug therapy
CPT/HCPCS: 0241U; 36415; 70450; 70553; 71045; 74018; 74176; 80048; 80076; 80178; 80202; 80307; 81001; 82140; 82550; 82607; 82746; 82945; 83605; 84157; 84443; 85025; 85027; 85610; 86592; 86617; 87015; 87040; 87070; 87077; 87147; 87186; 87205; 87476; 87529; 89051; 93005; 93306; 95816; 96361; 96374; 96375; 96376; 99223; 99284; 99285; A9585; C1758; J0696; J1650; J2060; J2250; J3370

== ENCOUNTER 2020-08-02 13:31 | Outpatient (REF) | payer MEDICARE, MEDICAID, SELFPAY ==
[2020-08-02 14:07] LABS: Hematocrit 38.1 % (42-52); Mean Corpuscular HGB Conc 34.1 g/dl (31.0-36.0); Mean Corpuscular Hemoglobin 31.6 pg (27.0-33.0); Mean Corpuscular Volume 92.5 fL (80-98); Mean Platelet Volume 10.9 fL (9.4-12.4); Platelet Count 278 X10*3/uL (160-400); Red Blood Count 4.12 X10*6/uL (4.60-5.80); Red Cell Distribution Width 11.6 % (11.0-16.0); White Blood Count 10.3 X10*3/uL (4.8-10.8)
[2020-08-02 14:27] LABS: Estimated Average Glucose 97 mg/dL
[2020-08-02 15:10] LABS: Anion Gap 12 (12-20); Blood Urea Nitrogen 19 mg/dL (9-16); Calcium 9.1 mg/dL (8.4-10.2); Carbon Dioxide 27 mmol/L (22-29); Chloride 105 mmol/L (96-108); Estimated Glomerular Filt Rate > 60; Glucose Random 86 mg/dL (60-115); Potassium 4.4 mmol/l (3.3-5.1); Sodium 140 mmol/L (135-145)
[2020-08-02 15:31] LABS: Prostate Specific Antigen Scr 1.34 ng/mL (<0.05-4.0)
== END 2020-08-02 13:32 | disposition home or self-care (01) ==
LOC: HO.LAB 13:31
PROVIDERS: PCP Physician Assistant; Visit Provider Physician Assistant
DX: I10 Essential (primary) hypertension (principal); G93.40 Encephalopathy, unspecified; Z13.1 Encounter for screening for diabetes mellitus; R74.8 Abnormal levels of other serum enzymes; Z12.5 Encounter for screening for malignant neoplasm of prostate; E03.9 Hypothyroidism, unspecified
CPT/HCPCS: 36415; 80048; 82550; 83036; 84153; 84443; 85027

== ENCOUNTER → 2020-10-01 15:08 | Outpatient (BNVA) | payer MEDICARE, MEDICAID, SELFPAY | PROVIDERS: PCP Physician Assistant; Visit Provider Nurse Practitioner Family | DX: Z13.89 Encounter for screening for other disorder (principal) | CPT/HCPCS: Q3014 ==

== ENCOUNTER 2020-10-04 14:19 | Outpatient (REF) | payer MEDICARE, MEDICAID, SELFPAY ==
--- NOTE | ~2020-10-04 | XR_ITS ---
EXAMINATION: XR SHOULDER, RIGHT CLINICAL INFORMATION: Pain COMPARISON: None TECHNIQUE: AP external rotation, Grashey, scapular Y, and axillary views of the right shoulder. FINDINGS: Bone alignment is normal. No fracture or dislocation is seen. The glenohumeral joint is normal. There is mild arthritis at the acromioclavicular joint. There is a small undersurface acromial osteophyte. There are degenerative changes of the greater tuberosity. Soft tissues are normal. XR/XR shoulder RT min 2V IMPRESSION: Mild arthritis at the acromioclavicular joint and undersurface acromial osteophyte.
[2020-10-04 14:56] LABS: Hematocrit 40.6 % (42-52); Mean Corpuscular HGB Conc 34.5 g/dl (31.0-36.0); Mean Corpuscular Hemoglobin 31.5 pg (27.0-33.0); Mean Corpuscular Volume 91.2 fL (80-98); Mean Platelet Volume 10.7 fL (9.4-12.4); Platelet Count 254 X10*3/uL (160-400); Red Blood Count 4.45 X10*6/uL (4.60-5.80); Red Cell Distribution Width 11.9 % (11.0-16.0); White Blood Count 9.5 X10*3/uL (4.8-10.8)
[2020-10-04 15:04] LABS: Estimated Average Glucose 97 mg/dL
[2020-10-04 15:21] LABS: Alanine Aminotransferase 17 U/L (0-40); Albumin Level 4.3 g/dL (3.5-5.0); Alkaline Phosphatase 79 U/L (39-117); Anion Gap 11 (12-20); Aspartate Amino Transferase 22 U/L (5-37); Bilirubin Direct < 0.2 mg/dL (0.0-0.5); Bilirubin Total 0.4 mg/dL (0.0-1.0); Blood Urea Nitrogen 19 mg/dL (9-16); Calcium 9.5 mg/dL (8.4-10.2); Carbon Dioxide 27 mmol/L (22-29); Chloride 107 mmol/L (96-108); Cholesterol 173 mg/dL; Estimated Glomerular Filt Rate > 60; Glucose Fasting 107 mg/dL (60-99); HDL Cholesterol 39 mg/dL; LDL Cholesterol Calculated 79 mg/dl; Potassium 3.8 mmol/L (3.3-5.1); Sodium 141 mmol/L (135-145); Triglycerides 275 mg/dL
== END 2020-10-04 14:20 | disposition home or self-care (01) ==
LOC: HO.LAB 14:19
PROVIDERS: PCP Physician Assistant; Visit Provider Nurse Practitioner Family
DX: M25.511 Pain in right shoulder (principal); I10 Essential (primary) hypertension; B35.9 Dermatophytosis, unspecified
CPT/HCPCS: 36415; 73030; 80053; 80061; 80076; 82248; 83036; 85027

== ENCOUNTER 2020-12-04 07:50 | Day surgery (SDC) | payer MEDICARE, MEDICAID, SELFPAY ==
[2020-11-29 10:28] VITALS: BMI 26.6
--- NOTE | 2020-12-03 08:29 | P.CONAN_ITS ---
Documented by User: Barbaraher Terryney 12/03/20 09:43 HPI - Anesthesia Eval Consult details Narrative: 55yo M for Colonoscopy 07/2020 C admit with delerium/confusion - no clear etiology, medical vs psych. Improved to baseline prior to d/c home. [facility] Active Problems Active Problems: All Active Problems (Updated 11/29/20 @ 10:26 by Zohreh Acuña) Delirium (Acute) Rhabdomyolysis (Acute) Aphasia (Acute) Bacteremia (Acute) Acute encephalopathy (Acute) Elevated CPK (Acute) Hospital discharge follow-up (Acute) Leukocytosis (Acute) Screening for diabetes mellitus (DM) (Acute) Colon cancer screening (Acute) Weak urinary stream (Acute) Tinea (Acute) Eczema (Acute) HTN (hypertension) (Acute) Right shoulder pain (Acute) Arthritis of right acromioclavicular joint (Acute) Hypothyroidism (Acute) OCD (obsessive compulsive disorder) (Acute) Past Medical History Medical History Arthritis Bipolar 1 disorder Bipolar affective disorder, depressed, severe, with psychotic behavior BPH (benign prostatic hyperplasia) Hypertension Hypothyroidism Major depression with psychotic features OCD (obsessive compulsive disorder) Restless legs syndrome (RLS) Family History Family History Father Throat cancer Mother Uterine cancer Brother In good health Brother In good health Surgical History Surgical History History of wisdom tooth extraction Social History Social History Household Members: None Housing: Apartment Alcohol intake: former Smoking Status: Former smoker Tobacco Type: Cigarette Use of substances other than those prescribed or required for medical reasons: No Substance Use Type: Marijuana Have you been hit, kicked, punched, or otherwise hurt by someone within the past year? If so, by whom?: No Are you DNR?: No Advance Directives: No Advance Directives Information Provided: No Advance Directives on File: No service: No Current occupational status: disabled Meds Allergies Allergy/AdvReac Type Severity Reaction Status Date / Time No Known Allergies Allergy Verified 12/04/20 08:06 Home Medications Medication Instructions Recorded Confirmed Last Taken Type atenolol 25 mg PO BID 07/17/20 11/29/20 12/04/20 07:00 History Exam Exam Date and Time: December 03, 2020 0829 Height,Weight and Vital Signs: Height 5 ft 7 in Weight 77.111 kg Pertinent Lab Results Pertinent Lab Results: EKG 07/2020 Vent. Rate : 093 BPM Atrial Rate : 093 BPM P-R Int : 118 ms QRS Dur : 086 ms QT Int : 392 ms P-R-T Axes : 041 -11 051 degrees QTc Int : 487 ms Poor data quality Normal sinus rhythm Nonspecific ST and T wave abnormality Abnormal ECG When compared with ECG of 24-FEB-2013 12:02, No significant change was found ECHO 07/2020 Conclusions: - Normal left ventricular size, thickness, systolic function, and wall motion. - Normal right ventricular cavity size and systolic function. - The left atrium is likely dilated. - No obvious vegetation noticed. Aortic and pulmonic valves are not well visualized. - Consider a BRYN if clinically appropriate. Assessment and Plan Assessment Anesthesia Assessment: Chart Reviewed Documented by User: Lisa Retana 12/04/20 08:55 [facility] Past Medical History Medical History Arthritis Bipolar 1 disorder Bipolar affective disorder, depressed, severe, with psychotic behavior BPH (benign prostatic hyperplasia) Hypertension Hypothyroidism Major depression with psychotic features OCD (obsessive compulsive disorder) Restless legs syndrome (RLS) Family History Family History Father Throat cancer Mother Uterine cancer Brother In good health Brother In good health Surgical History Surgical History History of wisdom tooth extraction Social History Social History Household Members: None Housing: Apartment Alcohol intake: former Smoking Status: Former smoker Tobacco Type: Cigarette Use of substances other than those prescribed or required for medical reasons: No Substance Use Type: Marijuana Have you been hit, kicked, punched, or otherwise hurt by someone within the past year? If so, by whom?: No Are you DNR?: No Advance Directives: No Advance Directives Information Provided: No Advance Directives on File: No service: No Current occupational status: disabled Meds Allergies Allergy/AdvReac Type Severity Reaction Status Date / Time No Known Allergies Allergy Verified 12/04/20 08:06 Home Medications Medication Instructions Recorded Confirmed Last Taken Type atenolol 25 mg PO BID 07/17/20 11/29/20 12/04/20 07:00 History Exam Airway Mallampati Class: II TM Dist: >3cm Neck ROM: Full Loose/Missing/Broken Teeth: No Heart: RRR Lungs: CTA Assessment and Plan Assessment Anesthesia Assessment: Anesthesia Plan Discussed and Chart Reviewed Final Anesthetic Review NPO: Yes ASA Class: II Final Preanesthetic Review: Meds/Allgs Chart Reviewed, Consent Obtained/Reviewed and Anes Risks/Benef Reviewed Patient Risk: Low Procedure Risk: Low Anesthetic Plan Anesthetic Plan: MAC: Disposition: Standard PACU
[2020-12-04 08:10] VITALS: BP 113/77; PULSE 70; RESP 18; TEMP 36.6; O2SAT 97
[2020-12-04] MEDS: Lactated Ringers 1,000 ML 100 ML IVCONT (08:30)
--- NOTE | 2020-12-04 09:00 | W.PM.OPN ---
Operative Note Operative Note Date of Service: 12/04/20 Narrative: Pre-op diagnosis: Colon cancer screening Post-op diagnosis: other (Mild diverticulosis) Procedure: COLONOSCOPY TILL CECUM Consent: Indications for the procedure and potential complications of bleeding, perforation, reaction to medications and missed diagnosis were discussed with the patient and informed consent was obtained. Instrument: Olympus PCF H 190 L variable stiffness pediatric colonoscope Monitoring: Vital signs and clinical assessment, intermittent blood pressure monitoring, continuous EKG monitoring, Pulse oximetry and Carbon Dioxide monitoring were done throughout the procedure. Colon withdrawl time was 19 minutes. Procedure: The patient was placed in the left lateral decubitis position and pre-procedure medications were administered. After a digital rectal examination of the ano-rectum, the video colonoscope was inserted into the rectum and advanced through the colon to the cecum. The colonoscope was slowly withdrawn in a retrograde panoramic fashion and the colon mucosa was carefully examined including a retroflexed view of the rectum. Findings and interventions are described below. Procedure Difficulty: Colon was long and tortuous and there was spasm and some loop formation. No maneuvers required. Difficulty in visualizing the colon mucosa due to deep breathing and constant involuntary movement of the patient Findings: Terminal Ileum: Not evaluated Cecum: Normal Ascending Colon: Normal Transverse Colon: Normal Descending Colon: Normal Sigmoid Colon: Mild diverticulosis Rectum: Normal Ano-rectum: Moderate internal hemorrhoids Colon preparation: Good after copious irrigation Impression and Post Procedure Diagnosis: Colonoscopy Findings: No polyps were detected Mild diverticulosis seen in the sigmoid colon Plan: Patient has an appointment on 12/13/20 in the GI Clinic with Denisha Morfin FNP-BC . Repeat Colonoscopy interval based on path results - in 8-10 years (consider GA for next colonoscopy) Above findings were reviewed with the patient and diverticulosis handouts was given in the discharge area Pt advised to have a sleep study to check for sleep apnea by anesthesia. Surgeon: Ruthie Knutson MD Anesthesia: MAC (Meghan Salvador CRNA) Was an Structural [employer] Iron[employer] used for this Procedure?: No [employer] Ironworker: Jean-Claude Molina Estimated blood loss (mL): 0 Pathology: none sent Condition: stable Disposition: PACU
--- NOTE | 2020-12-04 09:00 | MHC.SHP ---
Pre-Procedural Eval Section A The patient is an INPATIENT: No The History & Physical has been completed within 30 days and I have reviewed it.: No Section B Chief Complaint: Screening Details of Present Illness: Colon cancer screening Relevant Family History (Specify if Yes): Yes Relevant Social History: Tobacco Use (Former smoker) Present Medications: see Short Stay Collaborative assessment Medical History: Significant History (Bipolar 1 disorder Bipolar affective disorder, depressed, severe, with psychotic behavior Hypertension Hypothyroidism Major depression with psychotic features OCD (obsessive compulsive disorder)) History of Previous Operations: No relevant previous surgery Allergies: Allergies Allergy/AdvReac Type Severity Reaction Status Date / Time No Known Allergies Allergy Verified 12/04/20 08:06 Review of Systems Sugical H&P ROS: Negative: Constitution, Cardiovascular, Respiratory and Gastrointestinal Exam Surgical H&P Exam: Normal: Heart, Normal: Lungs and Normal: Extremities Plan Diagnosis/Plan: Unchanged I have reviewed the history and physical and performed a pertinent physical examination on my patient. No changes have occurred unless specified.
[2020-12-04 09:50] VITALS: BP 107/85; PULSE 87; RESP 16; TEMP 36.1; O2SAT 99
[2020-12-04 10:05] VITALS: BP 95/71; PULSE 78; RESP 18; O2SAT 100
== END 2020-12-04 10:47 | disposition home or self-care (01) ==
PROVIDERS: PCP Physician Assistant; Visit Provider Internal Medicine Gastroenterology
PROC: 0DJD8ZZ Inspection of Lower Intestinal Tract, Via Natural or Artificial Opening Endoscopic (ICD-10-PCS; CPT 45378; principal; 2020-12-04 09:00)
DX: Z12.11 Encounter for screening for malignant neoplasm of colon (principal); K57.30 Diverticulosis of large intestine without perforation or abscess without bleeding; K64.8 Other hemorrhoids; I10 Essential (primary) hypertension; F31.5 Bipolar disorder, current episode depressed, severe, with psychotic features; F42.9 Obsessive-compulsive disorder, unspecified; F17.210 Nicotine dependence, cigarettes, uncomplicated; Z79.899 Other long term (current) drug therapy
CPT/HCPCS: G0121; J2250

== ENCOUNTER → 2020-12-13 14:12 | Outpatient (BNVA) | payer MEDICARE, MEDICAID, SELFPAY | PROVIDERS: PCP Physician Assistant; Visit Provider Nurse Practitioner Family | DX: Z13.89 Encounter for screening for other disorder (principal) | CPT/HCPCS: Q3014 ==

== ENCOUNTER → 2021-01-06 20:56 | Outpatient (REF) | payer MEDICARE, MEDICAID, SELFPAY | LOC: HO.SL 20:56 | PROVIDERS: PCP Physician Assistant; Visit Provider Physician Assistant | DX: G47.33 Obstructive sleep apnea (adult) (pediatric) (principal) | CPT/HCPCS: 95810 ==

== ENCOUNTER 2021-02-06 12:17 | Outpatient (REF) | payer MEDICARE, MEDICAID, SELFPAY ==
[2021-02-06 14:10] LABS: Estimated Average Glucose 103 mg/dL; Hemoglobin A1c % 5.2 %
[2021-02-06 14:28] LABS: Alanine Aminotransferase 18 U/L (0-40); Albumin Level 4.2 g/dL (3.5-5.0); Alkaline Phosphatase 80 U/L (39-117); Anion Gap 15 (12-20); Aspartate Amino Transferase 22 U/L (5-37); Bilirubin Total 0.2 mg/dL (0.0-1.0); Blood Urea Nitrogen 21 mg/dL (9-16); Calcium 9.4 mg/dL (8.4-10.2); Carbon Dioxide 24 mmol/L (22-29); Chloride 105 mmol/L (96-108); Estimated Glomerular Filt Rate > 60; Glucose Fasting 95 mg/dL (60-99); Potassium 4.5 mmol/L (3.3-5.1); Sodium 139 mmol/L (135-145); Total Protein 6.8 g/dL (6.5-8.0)
[2021-02-06 14:35] LABS: Free T4 (Free Thyroxine) 0.91 ng/dL (0.71-1.85); Thyroid Stimulating Hormone 0.76 uIU/mL (0.32-4.0)
[2021-02-06 14:56] LABS: Vitamin B12 462 pg/mL (200-900)
== END 2021-02-06 12:18 | disposition home or self-care (01) ==
LOC: HO.LAB 12:17
PROVIDERS: PCP Physician Assistant; Visit Provider Psychiatry & Neurology Psychiatry
DX: F33.3 Major depressive disorder, recurrent, severe with psychotic symptoms (principal); F42.2 Mixed obsessional thoughts and acts; Z79.899 Other long term (current) drug therapy
CPT/HCPCS: 36415; 80053; 82607; 83036; 84439; 84443

== ENCOUNTER → 2021-02-14 13:43 | Outpatient (BNVA) | payer MEDICARE, MEDICAID, SELFPAY | PROVIDERS: PCP Physician Assistant; Visit Provider Nurse Practitioner Family | DX: Z13.89 Encounter for screening for other disorder (principal) | CPT/HCPCS: Q3014 ==

== ENCOUNTER → 2021-02-26 19:20 | Outpatient (REF) | payer MEDICARE, MEDICAID, SELFPAY | LOC: HO.SL 19:20 | PROVIDERS: Visit Provider Physician Assistant | DX: G47.33 Obstructive sleep apnea (adult) (pediatric) (principal) | CPT/HCPCS: 95810 ==

== ENCOUNTER → 2021-08-16 09:33 | Outpatient (BNVA) | payer MEDICARE, MEDICAID, SELFPAY | PROVIDERS: PCP Physician Assistant; Referring Provider Physician Assistant; Visit Provider Nurse Practitioner Family | DX: K57.90 Diverticulosis of intestine, part unspecified, without perforation or abscess without bleeding (principal); K64.8 Other hemorrhoids | CPT/HCPCS: 99212 ==

== ENCOUNTER → 2021-11-11 09:16 | Outpatient (REF) | payer MEDICARE, MEDICAID, SELFPAY | LOC: HO.SL 09:16 | PROVIDERS: PCP Physician Assistant; Visit Provider Physician Assistant | DX: G47.33 Obstructive sleep apnea (adult) (pediatric) (principal) | CPT/HCPCS: 95806 ==

== ENCOUNTER → 2022-07-23 14:35 | Outpatient (BNVA) | payer MEDICARE, MEDICAID, SELFPAY | PROVIDERS: PCP Physician Assistant; Visit Provider Psychiatry & Neurology Psychiatry | DX: F42.9 Obsessive-compulsive disorder, unspecified (principal); F32.5 Major depressive disorder, single episode, in full remission | CPT/HCPCS: 99212 ==

== ENCOUNTER → 2022-08-15 10:10 | Outpatient (BNVA) | payer MEDICARE, MEDICAID, SELFPAY | PROVIDERS: PCP Physician Assistant; Referring Provider Physician Assistant; Visit Provider Nurse Practitioner Family | DX: K64.8 Other hemorrhoids (principal); K57.90 Diverticulosis of intestine, part unspecified, without perforation or abscess without bleeding | CPT/HCPCS: 99212 ==

== ENCOUNTER → 2022-10-16 12:53 | Outpatient (BNVA) | payer MEDICARE, MEDICAID, SELFPAY | PROVIDERS: PCP Physician Assistant; Visit Provider Psychiatry & Neurology Psychiatry | DX: F32.A Depression, unspecified (principal) | CPT/HCPCS: 99212 ==

== ENCOUNTER → 2022-12-25 11:13 | Outpatient (BNVA) | payer MEDICARE, MEDICAID, SELFPAY | PROVIDERS: PCP Physician Assistant; Visit Provider Psychiatry & Neurology Psychiatry | DX: F32.4 Major depressive disorder, single episode, in partial remission (principal); F42.9 Obsessive-compulsive disorder, unspecified; Z79.899 Other long term (current) drug therapy | CPT/HCPCS: 99212 ==

== ENCOUNTER 2023-05-14 13:01 | Outpatient (AMB) | payer MEDICARE, MEDICAID, SELFPAY ==
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
== END 2023-05-14 13:01 | disposition home or self-care (01) ==
LOC: HO.HOP 13:01
PROVIDERS: PCP Physician Assistant; Visit Provider Psychiatry & Neurology Psychiatry
DX: F32.5 Major depressive disorder, single episode, in full remission (principal); F42.9 Obsessive-compulsive disorder, unspecified
CPT/HCPCS: 99214

== ENCOUNTER → 2023-05-14 13:01 | Outpatient (BNVA) | payer MEDICARE, MEDICAID, SELFPAY | PROVIDERS: PCP Physician Assistant; Visit Provider Psychiatry & Neurology Psychiatry | DX: F32.5 Major depressive disorder, single episode, in full remission (principal); F42.9 Obsessive-compulsive disorder, unspecified | CPT/HCPCS: 99212 ==

== ENCOUNTER 2023-08-26 16:47 | Outpatient (AMB) | payer MEDICARE, MEDICAID, SELFPAY ==
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
[2023-08-26 13:01] VITALS: BP 202/108; PULSE 70
== END 2023-08-26 16:48 | disposition home or self-care (01) ==
LOC: HO.HOP 16:47
PROVIDERS: PCP Physician Assistant; Visit Provider Psychiatry & Neurology Psychiatry
DX: F42.9 Obsessive-compulsive disorder, unspecified (principal); I10 Essential (primary) hypertension; F33.41 Major depressive disorder, recurrent, in partial remission
CPT/HCPCS: 90833; 99214

== ENCOUNTER → 2023-08-26 16:47 | Outpatient (BNVA) | payer MEDICARE, MEDICAID, SELFPAY | PROVIDERS: PCP Physician Assistant; Visit Provider Psychiatry & Neurology Psychiatry | DX: F42.9 Obsessive-compulsive disorder, unspecified (principal); F33.41 Major depressive disorder, recurrent, in partial remission; I10 Essential (primary) hypertension | CPT/HCPCS: 99212 ==

== ENCOUNTER 2023-10-01 10:07 | Outpatient (AMB) | payer MEDICARE, MEDICAID, SELFPAY ==
[2023-10-01 10:21] VITALS: BP 142/92; PULSE 81; O2SAT 96; BMI 23.1
--- NOTE | 2023-10-01 10:21 | MHC.PC.OV ---
Vital Signs 10/01/23 10:21 Height 5 ft 6 in Weight 143 lb BMI 23.1 BP 142/92 H Blood Pressure Location Lt brachial Position Sitting Pulse 81 Pulse Source Pulse Oximeter Pulse Oximetry (%) 96 Oxygen Delivery Method Room Air Intake Visit Reasons: PE Intake Note: Patient is here today for a physical. Outside Physical Damage Appraiser Required: No Accompanied by: Self / Same As Patient Allergies No Known Allergies Allergy (Verified 10/01/23 10:39) Medication List - Last Reconciled 10/01/23 by Leobardo Cates PA-C clomipramine 50 mg (2 x 25 mg) PO BEDTIME 30 days lisinopril 10 mg PO DAILY 30 days propranolol 10 mg PO TID PRN tamsulosin 0.4 mg PO DAILY 30 days Tobacco use date assessed: 10/01/23 Dental Screening Dental Screen Date: 10/01/23 Did you have a dental visit in the last 12 months?: Yes Did you have a dental problem in the last 6 months where you did not have access to dental care?: No Was dental information given to patient?: Patient has dentist HPI PE HPI Details Patient is a 58-year-old male here today for a routine annual physical. Patient has a past medical history significant hypothyroidism, OCD, hypertension. .. Hypertension: Recently found to high blood pressures. His atenolol had been switched to propanolol. He was started on lisinopril which has helped reduce his blood pressure. Blood pressure still remains slightly elevated today in office. He is asymptomatic without any chest discomfort, headache, shortness of breath on exertion. .. OCD: Followed by Psychiatry. Feels his OCD and anxiety have been well controlled on current medications. . Colon cancer screening: Colonoscopy done in 2020- need repeat 8-10 years Vaccines:: Up-to-date with COVID vaccine, need new Tdap, Need PCV, declines flu vaccine PFS Medical History (Updated 10/01/23 @ 13:12 by Leobardo Cates PA-C) Rhabdomyolysis Internal hemorrhoid Diverticulosis BPH (benign prostatic hyperplasia) Arthritis Restless legs syndrome (RLS) OCD (obsessive compulsive disorder) Major depression with psychotic features Hypothyroidism Hypertension Bipolar 1 disorder Bipolar affective disorder, depressed, severe, with psychotic behavior Surgical History H/O colonoscopy History of wisdom tooth extraction Family History Father Throat cancer Mother Uterine cancer Brother In good health Brother In good health Social History (Updated 10/01/23 @ 10:48 by Leobardo Cates PA-C) Household Members: None Housing: Apartment Do you presently have visiting nurse or other home services: No Alcohol intake: current Alcohol intake frequency: a few times a week Alcohol type: beer Patient Tobacco Use Status: Current everyday Tobacco user Cigarettes Per Day: 10 e-Cigarette/Vaping Use: Never Used Substance Use Type: Marijuana service: No Current occupational status: disabled Cognitive needs: No Hearing needs: No Vision needs: No Questionnaire PHQ-9 Over the last 2 weeks, how often have you been bothered by any of the following problems? 1. Little interest or pleasure in doing things: not at all 2. Feeling down, depressed, or hopeless: not at all 3. Trouble falling or staying asleep, or sleeping too much: not at all 4. Feeling tired or having little energy: not at all 5. Poor appetite or overeating: not at all 6. Feeling bad about yourself - or that you are a failure or have let yourself or your family down: not at all 7. Trouble concentrating on things, such as reading the newspaper or watching television: not at all 8. Moving or speaking so slowly that other people could have noticed. Or the opposite - being so fidgety or restless that you have been moving around a lot more than usual: not at all 9. Thoughts that you would be better off or of hurting yourself in some way: not at all Total score: 0 Depression Screening Interpretation: Negative Depression Screening Done: Yes 84712 - PHQ-9 Billing: Yes Source: Developed by Drs. Noam Johnson, Talya Tabares, Pilo Lamb and colleagues, with an educational isai from [employer]. Thrive Questionnaire Date Thrive assessed: 10/01/23 I am a: Patient What is your living situation today?: I have a steady place to live Within the past 12 months, did the food you bought not last and you didn't have the money to get more?: Never true Within the past 12 months, did you worry whether your food would run out before you got money to buy more?: Never true Do you have trouble paying for medicines?: No Do you have trouble getting transportation to medical appointments?: No Do you have trouble paying your heating and electricity bill?: No Do you have trouble taking care of your child, family member or friend?: No Do you have trouble with day-to-day activities such as bathing, preparing meals, shopping, managing finances, etc.?: No Are you currently unemployed and looking for a job?: No Are you interested in more education?: No Please select the resources that you would like help with: None Currently or been in a relationship where the following occur: no concerns reported THRIVE Score: 0 AUDIT C Alcohol Use Questionnaire (AUDIT-C) 1. How often do you have a drink containing alcohol?: Monthly or less 2. How many drinks containing alcohol do you have on a typical day when you are drinking?: 3 or 4 3. How often do you have six or more drinks on one occasion?: Never Total Score: 2 LENKA-7 AMB Questionnaire LENKA-7 Date LENKA - 7 assessed: 10/01/23 Feeling nervous, anxious, or on edge: 0 = Not at all Not being able to stop or control worryin = Not at all Worrying too much about different things: 0 = Not at all Trouble relaxin = Not at all Being so restless that it is hard to sit still: 0 = Not at all Becoming easily annoyed or irritable: 0 = Not at all Feeling afraid as if something awful might happen: 0 = Not at all Total LENKA-7 score (0-4 normal; 5-9 mild; 10-14 moderate; 15-21 severe): 0 Source: Developed by Drs. Noam Johnson, Talya Tabares, Pilo Lamb and colleagues, with an educational isai from [employer]. LENKA-7 Assessment Billing LENKA-7 Assessment Tool: LENKA-7 Assessment 87660 Review of Systems Const Denies body aches, Denies chills, Denies excessive sweating, Denies fatigue, Denies fever(s) and Denies headache(s) Eyes Denies blurry vision ENT Denies dysphagia, Denies vertigo, Denies dizziness, Denies headache(s), Denies hearing loss and Denies tinnitus Card Denies chest pain, Denies chest pain with activity, Denies syncope, Denies irregular heart rhythm and Denies dyspnea Resp Denies chest congestion, Denies cough, Denies hemoptysis, Denies dyspnea and Denies wheezing GI Denies abdominal pain, Denies melena, Denies hematochezia, Denies coffee ground emesis, Denies dysphagia, Denies diarrhea, Denies nausea and Denies vomiting Denies difficulty urinating, Denies dysuria, Denies urinary frequency, Denies urinary hesitancy and Denies urinary urgency Musc Denies arthralgias, Denies limited range of motion, Denies muscle cramps and Denies muscle weakness Skin/Breast Denies rash and Denies skin ulcer Neuro Denies Abnormal speech present, Denies confusion, Denies vertigo, Denies dizziness, Denies syncope, Denies headache(s), Denies memory loss and Denies seizure-like activity Psych Denies anxiety, Denies confusion, Denies depression, Denies memory loss, Denies panic attacks and Denies paranoia Endo Denies excessive sweating, Denies fatigue, Denies flushing, Denies polydipsia and Denies polyuria Aller/Immun Denies wheezing Physical exam (Primary Care) Vital Signs: Last Vital Signs Pulse 81 10/01/23 10:21 BP 142/92 H 10/01/23 10:21 Pulse Ox 96 10/01/23 10:21 Oxygen Delivery Method Room Air 10/01/23 10:21 BMI result Body Mass Index 23.1 Tobacco/Smoking Status: Tobacco use Status Tobacco use date assessed 10/01/23 10/01/23 10:28 Patient Tobacco Use Status Current everyday Tobacco 10/01/23 10:48 e-Cigarette/Vaping Use Never Used 10/01/23 10:48 Are you ready to quit: Yes Tobacco cessation counseling provided: Yes Items discussed: Nicotine replacement Relapse Prevention: discussed the importance of a supportive environment, discussed negative mood or depression after quitting, weight gain after smoking is common and discussed dietary, exercise and/or lifestyle changes Number of minutes spent counselin CPT code: 86700 - 4-10 Minutes PHQ-9: PHQ-9 Score PHQ-9: Total score 0 10/01/23 11:07 Depression Screening Interpretation: Negative Thrive Assessment: Date of Thrive Assessment Date Thrive assessed 10/01/23 10/01/23 10:28 Currently or been in a relationship where the following occur: no concerns reported Const General: cooperative, comfortable, no acute distress, alert and awake; No confusion Orientation/consciousness: oriented to person, oriented to place, patient oriented x3 and No confusion HENMT Head: Yes normocephalic Ears: external ears normal and TM's normal bilaterally Face and sinus: No sinus tenderness Mouth: Normal oral and palatal mucosa present and tongue normal Teeth and gingiva: dentition normal and gingiva normal Throat: Yes posterior oropharynx normal, Yes tonsils normal and Yes uvula midline Eyes Conjunctivae: conjunctivae normal Sclerae: sclerae normal Pupils: Equal, round and reactive pupils present EOM: EOMs intact bilaterally Direct Ophthalmoscopy: No no photophobia Neck Neck: Yes no lymphadenopathy, No tender and Yes no JVD Thyroid: Thyroid normal Carotids: no bruits Chest Chest palpation & inspection: no tenderness Resp Effort & Inspection: normal respiratory effort, no audible wheezes, not labored and no stridor Auscultation: no crackles, no rales, no rhonchi and no wheezes Cardio Jugular venous distension: no JVD Rate: regular rate, not bradycardic and not tachycardic Rhythm: regular rhythm Bruits: no carotid bruits Peripheral pulses: Peripheral pulses 2+ throughout GI Inspection: Yes normal to inspection, No abdominal wall ecchymosis and No visible herniation Palpation (GI): Soft to palpation, nontender, no guarding, not rigid and No hepatosplenomegaly present Auscultation: normoactive bowel sounds General: Yes no CVA tenderness Back/Spine/Pelvis Back: no CVA tenderness and No back tenderness Cervical Spine: cervical ROM normal Thoracic/Lumbar Spine: thoracic and lumbar spine normal to inspection, straight leg raise negative bilaterally, No thoraco-lumbar ROM limited and No lumbar spinal tenderness Skin Lesions: no lesions Rashes: no rashes Wounds: no wounds Neuro General: oriented to person, oriented to place, patient oriented x3, CN's II-XI intact bilaterally and No confusion Cranial nerves: Yes Equal, round and reactive pupils present and Yes Normal accommodation reflex present Cognition (Neuro): normal cognition Speech: No Abnormal speech present Gait exam (Neuro): Normal gait present Motor exam (neuro): 5/5 motor strength present throughout Extrem Right upper extremity: full ROM; no cyanosis Left upper extremity: full ROM; no cyanosis Right lower extremity: no edema Left lower extremity: no edema Psych Appearance: grossly normal Mental Status: mental status grossly normal Affect: normal affect Attitude: cooperative Thought process: Normal thought process present Immunizations pneumoc 20-andria conj-dip cr(PF) 0.5 mL IM syringe Performing Provider: Leobardo Cates PA-C Performing Location: [facility] Administered by: ROCIO Andujar on 10/01/23 11:11 Dose Route Admin Location Dispensed Lot Number Expiration Date NDC Regulatory Lead 0.5 mL IM Left Deltoid 0.5 mL [id number] 10/01/24 4434-3076-15 [employer] Admissions VIS Given Date VIS Provided VIS Publication Date 10/01/23 Single Vaccine 21 Eligibility Eligibility Date Funding Source Not [facility] Eligible 10/01/23 Private Assessment and Plan Assessment & Plan (1) Annual physical exam: Code(s): Z00.00 - Encounter for general adult medical examination without abnormal findings (2) OCD (obsessive compulsive disorder): Code(s): F42.9 - Obsessive-compulsive disorder, unspecified Qualifiers: Obsessive-compulsive disorder type: mixed obsessional thoughts and acts Qualified Code(s): F42.2 - Mixed obsessional thoughts and acts Plan: Follow a psychiatrist. Feels his OCD is fairly well controlled with current medication. (3) HTN (hypertension): Code(s): I10 - Essential (primary) hypertension Qualifiers: Hypertension type: primary hypertension Qualified Code(s): I10 - Essential (primary) hypertension Plan: Patient's blood pressure slightly elevated today in office. Will increase his dose of lisinopril for better blood pressure control. Advised to stop smoking. Advised to continue monitoring blood pressure at home with goal blood pressure be below 140/90. (4) Major depressive disorder, single episode, in partial remission: Code(s): F32.4 - Major depressive disorder, single episode, in partial remission Plan: PHQ-9 score 0 today. Patient's depression has been existing condition.. Patient continues to follow psychiatry (5) Tobacco dependence: Code(s): F17.200 - Nicotine dependence, unspecified, uncomplicated Plan: Patient does understand he needs to quit smoking. He is interested in nicotine gum which has been effective for him in the past. (6) Hypertriglyceridemia: Code(s): E78.1 - Pure hyperglyceridemia Plan: Patient's history high-triglycerides. Will check a fasting lipid panel. (7) Dermatitis: Code(s): L30.9 - Dermatitis, unspecified Plan: Has noted a dry patchy skin area over his cleansed penis. Will supply patient with medicated cream. Orders: Orders Prostate Specific Antigen Scr Today Z12.5 - Encounter for screening for malignant neoplasm of prostate [facility]. Panel Fast Today I10 - Essential (primary) hypertension Lipid Panel Today E78.1 - Pure hyperglyceridemia Pneumococcal 20 Immunization Today F17.200 - Nicotine dependence, unspecified, uncomplicated, Z23 - Encounter for immunization TSH reflex Free T4 Today E03.9 - Hypothyroidism, unspecified Microalbumin, Random (w Creat) Today I10 - Essential (primary) hypertension Medications: New nicotine (polacrilex) 4 mg buccal Q2H 15 days PRN 110 ea 1RF nicotine cravings F17.200 - Nicotine dependence, unspecified, uncomplicated clotrimazole-betamethasone 1-0.05 % 1 appl topical BID 45 grams 0RF 30 days L30.9 - Dermatitis, unspecified lisinopril 20 mg PO DAILY 30 days 30 tabs 1RF I10 - Essential (primary) hypertension Discontinued lisinopril Discontinued Reason: Doctor's Order 10 mg PO DAILY 30 days 30 tabs 1RF I10 - Essential (primary) hypertension Coding Level of Care Code Est Pt Prev Care 40-64y(12820) Diagnoses Annual physical exam Z00.00 Mixed obsessional thoughts and acts F42.2 Obsessive-compulsive disorder type: mixed obsessional thoughts and acts Primary hypertension I10 Hypertension type: primary hypertension Major depressive disorder, single episode, in partial remission F32.4 Tobacco dependence F17.200 Hypertriglyceridemia E78.1 Dermatitis L30.9 Additional Codes LENKA-7 Assessment Billing - LENKA-7 Assessment Tool: LENKA-7 Assessment [id number] ([id number]) Vital Signs *Quality* - CPT code: 85257 - 4-10 Minutes ([id number])
== END 2023-10-01 11:12 | disposition home or self-care (01) ==
PROVIDERS: PCP Physician Assistant; Visit Provider Physician Assistant
DX: Z23 Encounter for immunization (principal); Z00.00 Encounter for general adult medical examination without abnormal findings; F42.2 Mixed obsessional thoughts and acts; I10 Essential (primary) hypertension; F32.4 Major depressive disorder, single episode, in partial remission; F17.210 Nicotine dependence, cigarettes, uncomplicated; E78.1 Pure hyperglyceridemia; L30.9 Dermatitis, unspecified
CPT/HCPCS: 90471; 90677; 99396; 99406

== ENCOUNTER → 2023-10-08 11:39 | Outpatient (BNVA) | payer MEDICARE, MEDICAID, SELFPAY | PROVIDERS: PCP Physician Assistant; Visit Provider Psychiatry & Neurology Psychiatry ==

== ENCOUNTER 2023-12-07 13:25 | Outpatient (AMB) | payer MEDICARE, MEDICAID, SELFPAY ==
[2023-12-07 13:27] VITALS: BP 102/62; PULSE 87; O2SAT 98; BMI 22.9
--- NOTE | 2023-12-07 13:27 | MHC.PC.OV ---
Vital Signs 12/07/23 13:27 Height 5 ft 6 in Weight 142 lb BMI 22.9 BP 102/62 Blood Pressure Location Lt brachial Position Sitting Pulse 87 Pulse Source Pulse Oximeter Pulse Oximetry (%) 98 Oxygen Delivery Method Room Air Intake Visit Reasons: f/u HTN Special Education Supervisor Required: No Director Of Purchasing: Not Required per policy Accompanied by: Self / Same As Patient Allergies No Known Allergies Allergy (Verified 12/07/23 13:33) Medication List - Last Reconciled 12/07/23 by Leobardo Cates PA-C clomipramine 50 mg (2 x 25 mg) PO BEDTIME 30 days clotrimazole-betamethasone 1-0.05 % 1 appl topical BID 30 days lisinopril 20 mg PO DAILY 30 days nicotine (polacrilex) 4 mg buccal Q2H PRN 15 days propranolol 10 mg PO TID PRN tamsulosin 0.8 mg (2 x 0.4 mg) PO DAILY 30 days Tobacco use date assessed: 10/01/23 Dental Screening Dental Screen Date: 10/01/23 HPI f/u HTN HPI Details Patient is a 58-year-old male here today for a follow-up visit. Patient has a past medical history significant hypothyroidism, OCD, hypertension. .. Hypertension: Blood pressure on the low side today in office. He is fairly asymptomatic though does report feeling somewhat dizzy on a rare occasion. Of note also taking tamsulosin at 0.8 mg. His atenolol had been switched to propanolol. PLAN : Advised to reduce his lisinopril to 10 mg and monitor blood pressure at home. .. OCD: Followed by Psychiatry. Feels his OCD and anxiety have been well controlled on current medications. [facility] Medical History Rhabdomyolysis Internal hemorrhoid Diverticulosis BPH (benign prostatic hyperplasia) Arthritis Restless legs syndrome (RLS) OCD (obsessive compulsive disorder) Major depression with psychotic features Hypothyroidism Hypertension Bipolar 1 disorder Bipolar affective disorder, depressed, severe, with psychotic behavior Surgical History H/O colonoscopy History of wisdom tooth extraction Family History Father Throat cancer Mother Uterine cancer Brother In good health Brother In good health Social History Household Members: None Housing: Apartment Do you presently have visiting nurse or other home services: No Alcohol intake: current Alcohol intake frequency: a few times a week Alcohol type: beer Patient Tobacco Use Status: Current everyday Tobacco user Cigarettes Per Day: 10 e-Cigarette/Vaping Use: Never Used Substance Use Type: Marijuana service: No Current occupational status: disabled Cognitive needs: No Hearing needs: No Vision needs: No Questionnaire Thrive Questionnaire Date Thrive assessed: 10/01/23 LENKA-7 AMB Questionnaire LENKA-7 Date LENKA - 7 assessed: 10/01/23 Source: Developed by Drs. Noam Johnson, Talya Tabares, Pilo Lamb and colleagues, with an educational isai from [employer]. Review of Systems Const Denies headache(s) Eyes Denies loss of vision ENT Denies vertigo, Denies dizziness, Denies headache(s) and Denies sore throat Card Denies chest pain, Denies leg edema and Denies lightheadedness Resp Denies cough, Denies hemoptysis and Denies wheezing GI Denies abdominal pain, Denies melena, Denies constipation, Denies diarrhea and Denies vomiting Denies dysuria, Denies urinary frequency and Denies urinary urgency Musc Denies arthralgias, Denies joint swelling, Denies numbness and Denies tingling Neuro Denies Abnormal speech present, Denies behavioral changes, Denies vertigo, Denies dizziness, Denies headache(s), Denies loss of vision, Denies memory loss, Denies numbness and Denies tingling Psych Denies anxiety, Denies behavioral changes, Denies depression, Denies memory loss and Denies panic attacks Reggie/Lymph Denies easy bleeding and Denies easy bruising Aller/Immun Denies wheezing Physical exam (Primary Care) Vital Signs: Last Vital Signs Pulse 87 12/07/23 13:27 BP 102/62 12/07/23 13:27 Pulse Ox 98 12/07/23 13:27 Oxygen Delivery Method Room Air 12/07/23 13:27 BMI result Body Mass Index 22.9 Tobacco/Smoking Status: Tobacco use Status Tobacco use date assessed 10/01/23 12/07/23 13:28 Patient Tobacco Use Status Current everyday Tobacco 12/07/23 13:28 e-Cigarette/Vaping Use Never Used 12/07/23 13:28 Thrive Assessment: Date of Thrive Assessment Date Thrive assessed 10/01/23 12/07/23 13:28 Const General: healthy appearing, no acute distress, alert and awake Nutritional Appearance: well nourished Orientation/consciousness: oriented to person, oriented to place and oriented to time HENMT Ears: TM's normal bilaterally General nose exam: Normal nasal mucous membranes and turbinates present Eyes Conjunctivae: conjunctivae normal Sclerae: sclerae normal Pupils: Equal, round and reactive pupils present Neck Neck: Yes no lymphadenopathy and Yes no JVD Thyroid: Thyroid normal Carotids: no bruits Resp Effort & Inspection: normal respiratory effort and not tachypneic Auscultation: no crackles, no rales, no rhonchi and no wheezes Cardio Rate: regular rate Rhythm: regular rhythm Heart sounds: no murmurs and normal S1 and S2 GI Palpation (GI): Soft to palpation, nontender, no hepatomegaly and no splenomegaly Auscultation: normal bowel sounds Skin General skin exam: no rashes or lesions noted and dry skin Neuro General: oriented to person, oriented to place and oriented to time Cranial nerves: Yes Equal, round and reactive pupils present Speech: No Abnormal speech present Gait exam (Neuro): Normal gait present Motor exam (neuro): no tremor noted Extrem Right upper extremity: full ROM Left upper extremity: full ROM Right lower extremity: full ROM; no edema Left lower extremity: full ROM; no edema Psych Mental Status: mental status grossly normal Speech and movement: Normal speech and movement present Affect: normal affect Attitude: cooperative Thought process: Normal thought process present Assessment and Plan Assessment & Plan (1) HTN (hypertension): Code(s): I10 - Essential (primary) hypertension Qualifiers: Hypertension type: primary hypertension Qualified Code(s): I10 - Essential (primary) hypertension Plan: Patient's blood pressure slightly low today in office. Advised to reduce his lisinopril dose to 10 mg and keep pressure log at home Advised to stop smoking. goal blood pressure be below 140/90 above 90/60. (2) OCD (obsessive compulsive disorder): Code(s): F42.9 - Obsessive-compulsive disorder, unspecified Qualifiers: Obsessive-compulsive disorder type: mixed obsessional thoughts and acts Qualified Code(s): F42.2 - Mixed obsessional thoughts and acts Plan: Follow a psychiatrist. Feels his OCD is fairly well controlled with current medication. (3) Tobacco dependence: Code(s): F17.200 - Nicotine dependence, unspecified, uncomplicated Plan: Patient does understand he needs to quit smoking. He is interested in nicotine gum which has been effective for him in the past. He has reduced his smoking to 1 cigarette per day. (4) Hypertriglyceridemia: Code(s): E78.1 - Pure hyperglyceridemia Plan: Patient's history high-triglycerides. Will check a fasting lipid panel. Medications: Refilled lisinopril 20 mg PO DAILY 30 days 30 tabs 3RF I10 - Essential (primary) hypertension Patient Instructions: goal: Blood pressure remain below 140/90 Barrier: Adherence to healthy eating habits and physical activity. Coding Level of Care Code Est Pt Level 4 (11273) Diagnoses Primary hypertension I10 Hypertension type: primary hypertension Mixed obsessional thoughts and acts F42.2 Obsessive-compulsive disorder type: mixed obsessional thoughts and acts Tobacco dependence F17.200 Hypertriglyceridemia E78.1
== END 2023-12-07 13:53 | disposition home or self-care (01) ==
PROVIDERS: PCP Physician Assistant; Visit Provider Physician Assistant
DX: I10 Essential (primary) hypertension (principal); F42.2 Mixed obsessional thoughts and acts; F17.200 Nicotine dependence, unspecified, uncomplicated; E78.1 Pure hyperglyceridemia
CPT/HCPCS: 99214

== ENCOUNTER 2024-02-02 11:27 | Outpatient (AMB) | payer MEDICARE, MEDICAID, SELFPAY ==
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
== END 2024-02-02 13:32 | disposition home or self-care (01) ==
LOC: HO.HOP 11:27
PROVIDERS: PCP Physician Assistant; Visit Provider Psychiatry & Neurology Psychiatry
DX: F32.4 Major depressive disorder, single episode, in partial remission (principal); F42.2 Mixed obsessional thoughts and acts
CPT/HCPCS: 99214

== ENCOUNTER → 2024-02-02 11:27 | Outpatient (BNVA) | payer MEDICARE, MEDICAID, SELFPAY | PROVIDERS: PCP Physician Assistant; Visit Provider Psychiatry & Neurology Psychiatry ==

== ENCOUNTER 2024-03-11 11:32 | Outpatient (AMB) | payer MEDICARE, MEDICAID, SELFPAY ==
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
[2024-03-11 23:24] VITALS: BP 145/95; PULSE 82
== END 2024-03-11 13:39 | disposition home or self-care (01) ==
LOC: HO.HOP 11:32
PROVIDERS: PCP Physician Assistant; Visit Provider Psychiatry & Neurology Psychiatry
DX: F42.2 Mixed obsessional thoughts and acts (principal); F33.9 Major depressive disorder, recurrent, unspecified
CPT/HCPCS: 90833; 99213

== ENCOUNTER → 2024-03-11 11:32 | Outpatient (BNVA) | payer MEDICARE, MEDICAID, SELFPAY | PROVIDERS: PCP Physician Assistant; Visit Provider Psychiatry & Neurology Psychiatry | DX: F42.2 Mixed obsessional thoughts and acts (principal); F42.9 Obsessive-compulsive disorder, unspecified; F33.9 Major depressive disorder, recurrent, unspecified; F41.9 Anxiety disorder, unspecified | CPT/HCPCS: 99212 ==

== ENCOUNTER 2024-03-23 10:31 | Outpatient (REF) | payer MEDICARE, MEDICAID, SELFPAY ==
[2024-03-23 12:46] LABS: Creatinine Urine 34.95 mg/dL; Microalbum/Creatinine Ratio Ur 25.7 ug/mg cr (<30)
[2024-03-23 12:50] LABS: Alanine Aminotransferase 23 U/L (0-40); Albumin Level 4.3 g/dL (3.5-5.0); Alkaline Phosphatase 84 U/L (39-117); Anion Gap 13 (12-20); Aspartate Amino Transferase 29 U/L (5-37); Bilirubin Total 0.4 mg/dL (0.0-1.0); Blood Urea Nitrogen 21 mg/dL (9-16); Calcium 9.7 mg/dL (8.4-10.2); Carbon Dioxide 24 mmol/L (22-29); Chloride 105 mmol/L (96-108); Cholesterol 183 mg/dL (<200); Estimated Glomerular Filt Rate > 60; Glucose Fasting 86 mg/dL (60-99); HDL Cholesterol 54 mg/dL (>40); LDL Cholesterol Calculated 116 mg/dL (<100); Potassium 4.6 mmol/L (3.3-5.1); Sodium 137 mmol/L (135-145); Total Protein 7.7 g/dL (6.5-8.0); Triglycerides 66 mg/dL (<150)
[2024-03-23 13:00] LABS: Prostate Specific Antigen Scr 2.06 ng/mL (<0.05-4.0)
[2024-03-23 13:35] LABS: TSH reflex Free T4 2.49 uIU/mL (0.32-4.0)
== END 2024-03-23 10:32 | disposition home or self-care (01) ==
LOC: HO.LAB 10:31
PROVIDERS: PCP Physician Assistant; Visit Provider Physician Assistant
DX: I10 Essential (primary) hypertension (principal); E78.1 Pure hyperglyceridemia; E03.9 Hypothyroidism, unspecified; Z12.5 Encounter for screening for malignant neoplasm of prostate
CPT/HCPCS: 36415; 80053; 80061; 82043; 82570; 84153; 84443

== ENCOUNTER 2024-03-23 14:54 | Outpatient (AMB) | payer MEDICARE, MEDICAID, SELFPAY ==
--- NOTE | 2024-03-23 14:58 | A.OFFPC_ITS ---
Vital Signs 03/23/24 15:04 Height 5 ft 6 in Weight 137 lb 6 oz BMI 22.2 BP 106/78 Blood Pressure Location Lt brachial Position Sitting Pulse 113 H Pulse Source Pulse Oximeter Pulse Oximetry (%) 98 Oxygen Delivery Method Room Air Intake Visit Reasons: 3 Month F/U Medical/Surgery Registered Nurse Required: No Accompanied by: Self / Same As Patient Allergies No Known Allergies Allergy (Verified 03/23/24 15:05) Medication List - Last Reconciled 03/23/24 by Leobardo Cates PA-C clomipramine 50 mg PO BID clotrimazole-betamethasone 1-0.05 % 1 appl topical BID 30 days lisinopril 10 mg (1/2 x 20 mg) PO DAILY 30 days nicotine (polacrilex) 4 mg buccal Q2H PRN 15 days propranolol 10 mg PO TID PRN tamsulosin 0.4 mg PO DAILY venlafaxine ER 150 mg PO DAILY 30 days Tobacco use date assessed: 10/01/23 Dental Screening Dental Screen Date: 10/01/23 HPI 3 Month F/U HPI Details Patient is a 59-year-old male here today for a follow-up visit. Patient has a past medical history significant hypothyroidism, OCD, hypertension. .. Hypertension: Blood pressure on the low side today in office. He has been asymptomatic. He has reduced his tamsulosin down to 0.4 mg daily. Does report some elevated blood pressure readings a few weeks ago and increase his lisinopril back to 20 mg. He continues on propranolol 10 mg t.i.d. PLAN : Advised to reduce his lisinopril to 10 mg and monitor blood pressure at home. .. OCD: Followed by Psychiatry. Feels his OCD and anxiety have been well controlled on current medications. He is considering returning back to work part-time. .. Tobacco dependency: He does report still smoking a few cigarettes per day and occasionally does do vaporizer cigarettes. He does understand he needs to quit smoking Laboratory Tests 02/06/21 03/23/24 03/23/24 12:25 10:47 10:51 Creatinine 1.05 Cholesterol 183 LDL Cholesterol, C alc 116 H PSA Screen 2.06 TSH 0.76 2.49 Urine Microalbumin 9.0 PFSH Medical History Rhabdomyolysis Internal hemorrhoid Diverticulosis BPH (benign prostatic hyperplasia) Arthritis Restless legs syndrome (RLS) OCD (obsessive compulsive disorder) Major depression with psychotic features Hypothyroidism Hypertension Bipolar 1 disorder Bipolar affective disorder, depressed, severe, with psychotic behavior Surgical History H/O colonoscopy History of wisdom tooth extraction Family History Father Throat cancer Mother Uterine cancer Brother In good health Brother In good health Social History Household Members: None Housing: Apartment Do you presently have visiting nurse or other home services: No Alcohol intake: current Alcohol intake frequency: a few times a week Alcohol type: beer Patient Tobacco Use Status: Current everyday Tobacco user Cigarettes Per Day: 10 e-Cigarette/Vaping Use: Never Used Substance Use Type: Marijuana service: No Current occupational status: disabled Cognitive needs: No Hearing needs: No Vision needs: No Questionnaire Thrive Questionnaire Date Thrive assessed: 10/01/23 LENKA-7 AMB Questionnaire LENKA-7 Date LENKA - 7 assessed: 10/01/23 Source: Developed by Drs. Noam Johnson, Talya Tabares, Pilo Lamb and colleagues, with an educational isai from [employer]. Review of Systems Const Denies headache(s) Eyes Denies loss of vision ENT Denies vertigo, Denies dizziness, Denies headache(s) and Denies sore throat Card Denies chest pain, Denies leg edema and Denies lightheadedness Resp Denies cough, Denies hemoptysis and Denies wheezing GI Denies abdominal pain, Denies melena, Denies constipation, Denies diarrhea and Denies vomiting Denies dysuria, Denies urinary frequency and Denies urinary urgency Musc Denies arthralgias, Denies joint swelling, Denies numbness and Denies tingling Neuro Denies Abnormal speech present, Denies behavioral changes, Denies vertigo, Denies dizziness, Denies headache(s), Denies loss of vision, Denies memory loss, Denies numbness and Denies tingling Psych Denies anxiety, Denies behavioral changes, Denies depression, Denies memory loss and Denies panic attacks Reggie/Lymph Denies easy bleeding and Denies easy bruising Aller/Immun Denies wheezing Physical exam (Primary Care) Vital Signs: Last Vital Signs Pulse 113 H 03/23/24 15:04 BP 106/78 03/23/24 15:04 Pulse Ox 98 03/23/24 15:04 Oxygen Delivery Method Room Air 03/23/24 15:04 BMI result Body Mass Index 22.2 Tobacco/Smoking Status: Tobacco use Status Tobacco use date assessed 10/01/23 03/23/24 14:58 Patient Tobacco Use Status Current everyday Tobacco 03/23/24 14:58 e-Cigarette/Vaping Use Never Used 03/23/24 14:58 Are you ready to quit: Yes Tobacco cessation counseling provided: Yes Items discussed: Nicotine replacement Relapse Prevention: discussed the importance of a supportive environment, discussed negative mood or depression after quitting, weight gain after smoking is common and discussed dietary, exercise and/or lifestyle changes Number of minutes spent counselin CPT code: 92752 - 4-10 Minutes Thrive Assessment: Date of Thrive Assessment Date Thrive assessed 10/01/23 03/23/24 14:58 Const General: healthy appearing, no acute distress, alert and awake Nutritional Appearance: well nourished Orientation/consciousness: oriented to person, oriented to place and oriented to time HENMT Ears: TM's normal bilaterally General nose exam: Normal nasal mucous membranes and turbinates present Eyes Conjunctivae: conjunctivae normal Sclerae: sclerae normal Pupils: Equal, round and reactive pupils present Neck Neck: Yes no lymphadenopathy and Yes no JVD Thyroid: Thyroid normal Carotids: no bruits Resp Effort & Inspection: normal respiratory effort and not tachypneic Auscultation: no crackles, no rales, no rhonchi and no wheezes Cardio Rate: regular rate Rhythm: regular rhythm Heart sounds: no murmurs and normal S1 and S2 GI Palpation (GI): Soft to palpation, nontender, no hepatomegaly and no splenomegaly Auscultation: normal bowel sounds Skin General skin exam: no rashes or lesions noted and dry skin Neuro General: oriented to person, oriented to place and oriented to time Cranial nerves: Yes Equal, round and reactive pupils present Speech: No Abnormal speech present Gait exam (Neuro): Normal gait present Motor exam (neuro): no tremor noted Extrem Right upper extremity: full ROM Left upper extremity: full ROM Right lower extremity: full ROM; no edema Left lower extremity: full ROM; no edema Psych Mental Status: mental status grossly normal Speech and movement: Normal speech and movement present Affect: normal affect Attitude: cooperative Thought process: Normal thought process present Assessment and Plan Assessment & Plan (1) HTN (hypertension): Code(s): I10 - Essential (primary) hypertension Qualifiers: Hypertension type: primary hypertension Qualified Code(s): I10 - Essential (primary) hypertension Plan: Patient's blood pressure slightly low today in office. Advised to reduce his lisinopril dose to 10 mg and keep pressure log at home Advised to stop smoking. goal blood pressure be below 140/90 above 90/60. (2) OCD (obsessive compulsive disorder): Code(s): F42.9 - Obsessive-compulsive disorder, unspecified Qualifiers: Obsessive-compulsive disorder type: mixed obsessional thoughts and acts Qualified Code(s): F42.2 - Mixed obsessional thoughts and acts Plan: Follow a psychiatrist. Feels his OCD is fairly well controlled with current medication. (3) Tobacco dependence: Code(s): F17.200 - Nicotine dependence, unspecified, uncomplicated Plan: Patient does understand he needs to quit smoking. He is interested in nicotine gum which has been effective for him in the past. He does admit to smoking a few cigarettes per day. (4) Hypertriglyceridemia: Code(s): E78.1 - Pure hyperglyceridemia Plan: Most recent lipid panel showing excellent control of his triglycerides. He will continue working on lifestyle and dietary modifications Orders: Orders Lipid Panel Today E78.1 - Pure hyperglyceridemia Comprehensive [place]. Panel Fast Today E78.1 - Pure hyperglyceridemia Prostate Specific Antigen Scr Today I10 - Essential (primary) hypertension, Z12.5 - Encounter for screening for malignant neoplasm of prostate Complete Blood Count no Diff Today E78.1 - Pure hyperglyceridemia Microalbumin, Random (w Creat) Today I10 - Essential (primary) hypertension TSH reflex Free T4 Today E03.9 - Hypothyroidism, unspecified Medications: Changed From tamsulosin Take 2 tablets once a day. 0.8 mg (2 x 0.4 mg) PO DAILY 30 days 60 caps 6RF R39.12 - Poor urinary stream To tamsulosin 0.4 mg PO DAILY R39.12 - Poor urinary stream Refilled nicotine (polacrilex) 4 mg buccal Q2H PRN 110 ea 1RF nicotine cravings 15 days F17.200 - Nicotine dependence, unspecified, uncomplicated Patient Instructions: Goal: COMPLETELY QUIT SMOKING, triglycerides to remain below 200 Barriers: Adherence to physical activity and healthy eating habits, availability of cigarettes Coding Level of Care Code Est Pt Level 4 (19820) Diagnoses Primary hypertension I10 Hypertension type: primary hypertension Mixed obsessional thoughts and acts F42.2 Obsessive-compulsive disorder type: mixed obsessional thoughts and acts Tobacco dependence F17.200 Hypertriglyceridemia E78.1 Additional Codes Vital Signs *Quality* - CPT code: 81468 - 4-10 Minutes ([id number])
[2024-03-23 15:04] VITALS: BP 106/78; PULSE 113; O2SAT 98; BMI 22.2
== END 2024-03-23 15:26 | disposition home or self-care (01) ==
PROVIDERS: PCP Physician Assistant; Visit Provider Physician Assistant
DX: I10 Essential (primary) hypertension (principal); F42.2 Mixed obsessional thoughts and acts; F17.200 Nicotine dependence, unspecified, uncomplicated; E78.1 Pure hyperglyceridemia
CPT/HCPCS: 99214; 99406

== ENCOUNTER 2024-04-22 11:05 | Outpatient (REF) | payer MEDICARE, MEDICAID, SELFPAY ==
--- NOTE | ~2024-04-22 | XR_ITS ---
EXAMINATION: XR HIP, RIGHT CLINICAL INFORMATION: M25.551 - Pain in right hip COMPARISON: None available. TECHNIQUE: Two views of the right hip. FINDINGS: No fracture. Alignment is anatomic. Hip joint space is maintained. Mild marginal spurring of the acetabulum superiorly with a minimal amount subchondral sclerosis and cystic changes. Findings suggest early osteoarthritis. Soft tissues and bony structures are otherwise normal in appearance. XR/XR hip RT min 2V IMPRESSION: 1. No acute findings. 2. Mild degenerative changes right hip joint. Electronically signed by: Chin Willis MD 07/03/2024 10:06 PM LUBA WADE
== END 2024-04-22 11:06 | disposition home or self-care (01) ==
LOC: HO.XRAY 11:05
PROVIDERS: PCP Physician Assistant; Visit Provider Psychiatry & Neurology Psychiatry
DX: F33.41 Major depressive disorder, recurrent, in partial remission (principal); F42.2 Mixed obsessional thoughts and acts; M25.551 Pain in right hip
CPT/HCPCS: 73502; 99212

== ENCOUNTER 2024-04-22 11:05 | Outpatient (AMB) | payer MEDICARE, MEDICAID, SELFPAY ==
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
[2024-04-22 13:38] VITALS: BP 107/76; PULSE 96
== END 2024-04-22 11:42 | disposition home or self-care (01) ==
LOC: HO.HOP 11:05
PROVIDERS: PCP Physician Assistant; Visit Provider Psychiatry & Neurology Psychiatry
DX: F33.41 Major depressive disorder, recurrent, in partial remission (principal); F42.2 Mixed obsessional thoughts and acts; M25.551 Pain in right hip
CPT/HCPCS: 90833; 99213

== ENCOUNTER → 2024-04-22 11:56 | Outpatient (BNV) | payer MEDICARE, MEDICAID, SELFPAY | PROVIDERS: PCP Physician Assistant; Visit Provider Radiology Diagnostic Radiology | DX: M25.551 Pain in right hip (principal) | CPT/HCPCS: 73502 ==

== ENCOUNTER 2024-05-04 10:07 | Outpatient (AMB) | payer MEDICARE, MEDICAID, SELFPAY ==
--- NOTE | 2024-05-04 10:09 | A.OFFPC_ITS ---
Vital Signs 05/04/24 10:10 Height 5 ft 6 in Weight 142 lb 2 oz BMI 22.9 BP 120/90 H Blood Pressure Location Lt brachial Position Sitting Pulse 84 Pulse Source Pulse Oximeter Pulse Oximetry (%) 98 Oxygen Delivery Method Room Air Intake Visit Reasons: follow up Intake Note: Pt is here for right leg pain within 4 week. 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 Accompanied by: Self / Same As Patient Allergies No Known Allergies Allergy (Verified 05/04/24 10:29) Medication List - Last Reconciled 05/04/24 by Leobardo Cates PA-C clomipramine 50 mg PO BID clotrimazole-betamethasone 1-0.05 % 1 appl topical BID 30 days lisinopril 20 mg PO DAILY 30 days nicotine (polacrilex) 4 mg buccal Q2H PRN 15 days propranolol 10 mg PO TID PRN tamsulosin 0.4 mg PO DAILY venlafaxine ER 150 mg PO DAILY 30 days Tobacco use date assessed: 10/01/23 Dental Screening Dental Screen Date: 10/01/23 HPI follow up HPI Details Patient is a 59-year-old male here today for follow-up visit. He reports having right lower leg/ hip pain last 4 weeks. He reports originally was in a lot of pain and was barely able to walk though over time his pain has gotten much better and has been using NSAIDs which have been helpful. Reports he is able to walk better and go up and downstairs. Has had similar symptoms on his left lower back and leg in the past. Patient did get x-ray of his right hip which did not show any significant abnormalities. [facility] Medical History Rhabdomyolysis Internal hemorrhoid Diverticulosis BPH (benign prostatic hyperplasia) Arthritis Restless legs syndrome (RLS) OCD (obsessive compulsive disorder) Major depression with psychotic features Hypothyroidism Hypertension Bipolar 1 disorder Bipolar affective disorder, depressed, severe, with psychotic behavior Surgical History H/O colonoscopy History of wisdom tooth extraction Family History Father Throat cancer Mother Uterine cancer Brother In good health Brother In good health Social History Household Members: None Housing: Apartment Do you presently have visiting nurse or other home services: No Alcohol intake: current Alcohol intake frequency: a few times a week Alcohol type: beer Patient Tobacco Use Status: Current everyday Tobacco user Cigarettes Per Day: 10 e-Cigarette/Vaping Use: Never Used Substance Use Type: Marijuana service: No Current occupational status: disabled Cognitive needs: No Hearing needs: No Vision needs: No Questionnaire Thrive Questionnaire Date Thrive assessed: 10/01/23 Are you currently unemployed and looking for a job?: No AUDIT C Alcohol Use Questionnaire (AUDIT-C) 2. How many drinks containing alcohol do you have on a typical day when you are drinking?: 1 or 2 3. How often do you have six or more drinks on one occasion?: Never Total Score: 0 LENKA-7 AMB Questionnaire LENKA-7 Date LENKA - 7 assessed: 10/01/23 Source: Developed by Drs. Noam Johnson, Talya Tabares, Pilo Lamb and colleagues, with an educational isai from [employer]. Review of Systems Const Denies headache(s) Eyes Denies loss of vision ENT Denies vertigo, Denies dizziness, Denies headache(s) and Denies sore throat Card Denies chest pain, Denies leg edema and Denies lightheadedness Resp Denies cough, Denies hemoptysis and Denies wheezing GI Denies abdominal pain, Denies melena, Denies constipation, Denies diarrhea and Denies vomiting Denies dysuria, Denies urinary frequency and Denies urinary urgency Musc Denies arthralgias, Denies joint swelling, Denies numbness and Denies tingling Neuro Denies Abnormal speech present, Denies behavioral changes, Denies vertigo, Denies dizziness, Denies headache(s), Denies loss of vision, Denies memory loss, Denies numbness and Denies tingling Psych Denies anxiety, Denies behavioral changes, Denies depression, Denies memory loss and Denies panic attacks Reggie/Lymph Denies easy bleeding and Denies easy bruising Aller/Immun Denies wheezing Physical exam (Primary Care) Vital Signs: Last Vital Signs Pulse 84 05/04/24 10:10 BP 120/90 H 05/04/24 10:10 Pulse Ox 98 05/04/24 10:10 Oxygen Delivery Method Room Air 05/04/24 10:10 BMI result Body Mass Index 22.9 Tobacco/Smoking Status: Tobacco use Status Tobacco use date assessed 10/01/23 05/04/24 10:17 Patient Tobacco Use Status Current everyday Tobacco 05/04/24 10:17 e-Cigarette/Vaping Use Never Used 05/04/24 10:17 Thrive Assessment: Date of Thrive Assessment Date Thrive assessed 10/01/23 05/04/24 10:17 Const General: healthy appearing, no acute distress, alert and awake Nutritional Appearance: well nourished Orientation/consciousness: oriented to person, oriented to place and oriented to time HENMT Ears: TM's normal bilaterally General nose exam: Normal nasal mucous membranes and turbinates present Eyes Conjunctivae: conjunctivae normal Sclerae: sclerae normal Pupils: Equal, round and reactive pupils present Neck Neck: Yes no lymphadenopathy and Yes no JVD Thyroid: Thyroid normal Carotids: no bruits Resp Effort & Inspection: normal respiratory effort and not tachypneic Auscultation: no crackles, no rales, no rhonchi and no wheezes Cardio Rate: regular rate Rhythm: regular rhythm Heart sounds: no murmurs and normal S1 and S2 GI Palpation (GI): Soft to palpation, nontender, no hepatomegaly and no splenomegaly Auscultation: normal bowel sounds Skin General skin exam: no rashes or lesions noted and dry skin Neuro General: oriented to person, oriented to place and oriented to time Cranial nerves: Yes Equal, round and reactive pupils present Speech: No Abnormal speech present Gait exam (Neuro): Normal gait present Motor exam (neuro): no tremor noted Extrem Right upper extremity: full ROM Left upper extremity: full ROM Right lower extremity: full ROM; no edema Left lower extremity: full ROM; no edema Psych Mental Status: mental status grossly normal Speech and movement: Normal speech and movement present Affect: normal affect Attitude: cooperative Thought process: Normal thought process present Coding Level of Care Code Est Pt Level 3 (03069) Diagnoses Right sided sciatica M54.31 Assessment & Plan Assessment & Plan (1) Right sided sciatica: Code(s): M54.31 - Sciatica, right side Category: Medical Plan: Patient's signs and symptoms most consistent with a sciatic nerve impingement. Would likely benefit from formal physical therapy. Will use NSAID on as needed basis along with alternating Tylenol. Orders: Orders TSH reflex Free T4 Today E03.9 - Hypothyroidism, unspecified PT Evaluation and Treatment Today M54.31 - Sciatica, right side Lipid Panel Today E78.1 - Pure hyperglyceridemia Microalbumin, Random (w Creat) Today I10 - Essential (primary) hypertension Comprehensive [place]. Panel Fast Today I10 - Essential (primary) hypertension Complete Blood Count no Diff Today I10 - Essential (primary) hypertension Medications: New ibuprofen 800 mg PO Q8H 7 days PRN 21 tabs 0RF pain M54.31 - Sciatica, right side Refilled nicotine (polacrilex) 4 mg buccal Q2H 15 days PRN 110 ea 1RF nicotine cravings F17.200 - Nicotine dependence, unspecified, uncomplicated
[2024-05-04 10:10] VITALS: BP 120/90; PULSE 84; O2SAT 98; BMI 22.9
== END 2024-05-04 10:48 | disposition home or self-care (01) ==
PROVIDERS: PCP Physician Assistant; Visit Provider Physician Assistant
DX: M54.31 Sciatica, right side (principal)

== ENCOUNTER → 2024-05-04 10:07 | Outpatient (BNVA) | payer MEDICARE, MEDICAID, SELFPAY | PROVIDERS: PCP Physician Assistant; Visit Provider Physician Assistant | DX: M54.31 Sciatica, right side (principal) | CPT/HCPCS: 99212 ==

== ENCOUNTER 2024-06-03 11:29 | Outpatient (AMB) | payer MEDICARE, MEDICAID, SELFPAY ==
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
== END 2024-06-03 11:36 | disposition home or self-care (01) ==
LOC: HO.HOP 11:29
PROVIDERS: PCP Physician Assistant; Visit Provider Psychiatry & Neurology Psychiatry
DX: F42.2 Mixed obsessional thoughts and acts (principal); F32.4 Major depressive disorder, single episode, in partial remission
CPT/HCPCS: 90833; 99213

== ENCOUNTER → 2024-06-03 11:29 | Outpatient (BNVA) | payer MEDICARE, MEDICAID, SELFPAY | PROVIDERS: PCP Physician Assistant; Visit Provider Psychiatry & Neurology Psychiatry | DX: F42.2 Mixed obsessional thoughts and acts (principal); F32.4 Major depressive disorder, single episode, in partial remission | CPT/HCPCS: 99212 ==

== ENCOUNTER 2024-08-11 10:31 | Outpatient (AMB) | payer MEDICARE, MEDICAID, SELFPAY ==
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
== END 2024-08-11 11:15 | disposition home or self-care (01) ==
LOC: HO.HOP 10:31
PROVIDERS: PCP Physician Assistant; Visit Provider Psychiatry & Neurology Psychiatry
DX: F42.2 Mixed obsessional thoughts and acts (principal); F33.9 Major depressive disorder, recurrent, unspecified
CPT/HCPCS: 90833; 99213

== ENCOUNTER → 2024-08-11 10:31 | Outpatient (BNVA) | payer MEDICARE, MEDICAID, SELFPAY | PROVIDERS: PCP Physician Assistant; Visit Provider Psychiatry & Neurology Psychiatry | DX: F42.2 Mixed obsessional thoughts and acts (principal); F33.9 Major depressive disorder, recurrent, unspecified | CPT/HCPCS: 99212 ==

== ENCOUNTER 2024-10-01 09:48 | Outpatient (REF) | payer MEDICARE, MEDICAID, SELFPAY ==
[2024-10-01 11:12] LABS: Hematocrit 42.5 % (42.0-52.0); Hemoglobin 14.4 g/dl (14.0-18.0); Mean Corpuscular HGB Conc 33.9 g/dl (31.0-36.0); Mean Corpuscular Hemoglobin 31.7 pg (27.0-33.0); Mean Corpuscular Volume 93.6 fL (80.0-98.0); Mean Platelet Volume 10.7 fL (9.4-12.4); Platelet Count 248 X10*3/uL (160-400); Red Blood Count 4.54 X10*6/uL (4.60-5.80); Red Cell Distribution Width 12.1 % (11.0-16.0)
[2024-10-01 12:11] LABS: Alanine Aminotransferase 29 U/L (0-40); Alkaline Phosphatase 80 U/L (39-117); Anion Gap 10 (12-20); Aspartate Amino Transferase 28 U/L (5-37); Bilirubin Total 0.4 mg/dL (0.0-1.0); Blood Urea Nitrogen 19 mg/dL (9-16); Calcium 9.1 mg/dL (8.4-10.2); Carbon Dioxide 26 mmol/L (22-29); Chloride 108 mmol/L (96-108); Cholesterol 157 mg/dL (<200); Estimated Glomerular Filt Rate > 60; Glucose Fasting 93 mg/dL (60-99); HDL Cholesterol 50 mg/dL (>40); LDL Cholesterol Calculated 95 mg/dL (<100); Potassium 4.5 mmol/L (3.3-5.1); Sodium 139 mmol/L (135-145); Triglycerides 61 mg/dL (<150)
[2024-10-01 12:21] LABS: Creatinine Urine 30.61 mg/dL; Microalbumin Urine < 5.0 mg/L
[2024-10-01 12:32] LABS: Prostate Specific Antigen Scr 2.31 ng/mL (<0.05-4.0)
[2024-10-01 12:35] LABS: TSH reflex Free T4 2.02 uIU/mL (0.32-4.0)
== END 2024-10-01 09:49 | disposition home or self-care (01) ==
LOC: HO.LAB 09:48
PROVIDERS: PCP Physician Assistant; Visit Provider Physician Assistant
DX: Z12.5 Encounter for screening for malignant neoplasm of prostate (principal); I10 Essential (primary) hypertension; E03.9 Hypothyroidism, unspecified; E78.1 Pure hyperglyceridemia
CPT/HCPCS: 36415; 80053; 80061; 82043; 82570; 84153; 84443; 85027

== ENCOUNTER 2024-10-03 11:26 | Outpatient (AMB) | payer MEDICARE, MEDICAID, SELFPAY ==
--- NOTE | 2024-10-03 11:56 | AM.OFFVISMDC ---
Intake Vital Signs 10/03/24 12:02 Height 5 ft 6 in Weight 139 lb 2 oz BMI 22.5 BP 110/80 Blood Pressure Location Lt brachial Position Sitting Pulse 79 Pulse Source Pulse Oximeter Pulse Oximetry (%) 97 Oxygen Delivery Method Room Air Intake Visit Reasons: AWV Non Profit Financial Controller Required: No Accompanied by: Self / Same As Patient Allergies No Known Allergies Allergy (Verified 10/03/24 12:07) Medication List - Last Reconciled 10/03/24 by Leobardo Cates PA-C clomipramine 100 mg (2 x 50 mg) PO BEDTIME clotrimazole-betamethasone 1-0.05 % 1 appl topical BID 30 days ibuprofen 800 mg PO Q8H PRN 7 days lisinopril 30 mg PO DAILY 30 days lisinopril 20 mg PO DAILY 30 days nicotine (polacrilex) 4 mg buccal Q2H PRN 15 days propranolol 10 mg PO TID PRN tamsulosin 0.4 mg PO DAILY venlafaxine ER 150 mg PO DAILY 30 days HPI AWV HPI Details Patient is a 59-year-old male here today for an annual wellness visit. Patient has a past medical history significant hypothyroidism, OCD, hypertension. Today we discussed his [place] of care and end of life planning. We also discuss patient's comprehensive care plan which was scanned into patient's chart. Colon cancer screening: Colonoscopy done in 2020- need repeat 8-10 years Vaccines:: Up-to-date with COVID vaccine, need new Tdap, UTD PCV-, declines flu vaccine HPI Comments History of Present Illness Details reviewed past medical history- yes reviewed surgical / hospitalization history- yes reviewed current medications- yes reviewed family history- yes home safety throw rugs? grab bars? raised toilet seat? working smoke detectors? activities of daily living difficulty bathing or showering? difficulty dressing? difficulty using the toilet? difficulty getting in and out of bed? difficulty walking? receives help from other person's with any of the above tasks? instrumental activities of daily living uses telephone - gets to place out of walking distance- go shopping for groceries- repairs own meals- does own minor home maintenance- does own laundry- does own housework- manages own money- currently takes medication- end of life planning discussed advanced directives- yes advanced directives on file? discussed wishes expressed in advanced directives. fall risk have you had any falls with injuries in the past year? have you had 2 or more falls in the past year? fall risk assessment: [facility] Medical History Rhabdomyolysis Internal hemorrhoid Diverticulosis BPH (benign prostatic hyperplasia) Arthritis Restless legs syndrome (RLS) OCD (obsessive compulsive disorder) Major depression with psychotic features Hypothyroidism Hypertension Bipolar 1 disorder Bipolar affective disorder, depressed, severe, with psychotic behavior Surgical History H/O colonoscopy History of wisdom tooth extraction Family History Father Throat cancer Mother Uterine cancer Brother In good health Brother In good health Social History Household Members: None Housing: Apartment Do you presently have visiting nurse or other home services: No Alcohol intake: current Alcohol intake frequency: a few times a week Alcohol type: beer Patient Tobacco Use Status: Current everyday Tobacco user Cigarettes Per Day: 10 e-Cigarette/Vaping Use: Never Used Substance Use Type: Marijuana service: No Current occupational status: disabled Cognitive needs: No Hearing needs: No Vision needs: No Questionnaire Medicare Wellness Checkup [age] 65-69 What gender do you identify with?: male During the past 4 weeks, how much have you been bothered by emotional problems such as feeling anxious, depressed, irritable, sad or downhearted, and blue?: slightly During the past 4 weeks, has your physical & emotional health limited your social activities with family, friends, neighbors, or groups?: not at all During the past 4 weeks, how much bodily pain have you generally had?: no pain During the past 4 weeks, was someone available to help you if you needed & wanted help?: no, not at all During the past 4 weeks, what was the hardest physical activity you could do for at least 2 minutes?: moderate Can you get to places out of walking distance without help? (For eg., can you travel alone on buses, taxis or drive your car?): Yes Can you go shopping for groceries or clothes without someone's help?: Yes Can you prepare your own meals?: Yes Can you do your housework without help?: Yes Because of any health problems, do you need the help of another person with your personal care needs such as eating, bathing, dressing or getting around the house?: No Can you handle your own money without help?: Yes During the past 4 weeks, how would you rate your health in general?: good During the past 4 weeks how have things been going for you?: pretty well Are you having difficulties driving your car?: no Do you always fasten your seat belt when you are in a car?: yes, usually During past 4 weeks, have you been bothered by the following: never: Sexual problems?, Trouble eating well?, Teeth or denture problems?, Problems using the telephone? and Tiredness or fatigue? and seldom: Falling or dizzy when standing up Are you afraid of falling?: No Are you a smoker?: yes, and I might quit During the past 4 weeks, how many drinks of wine, beer, or other alcoholic beverages did you have?: 2-5 drinks per week Do you exercise for about 20 minutes 3 or more times a week?: yes, all the time Have you been given information to help with the following?: yes: Keeping track of your medications? and no: Hazards in your house that might hurt you? How often do you have trouble taking medicines the way you have been told to take them?: I always take medicine as prescribed How confident are you that you can control & manage most of your health problems?: very confident What is your race?: White Mini Mental State Exam (MMSE) Orientation What is the (year) (season) (date) (day) (month)?: year Where are we (state) (county) (town or city) (hospital) (floor)?: town or city Attention & Calculation (CHOOSE ONE) Spell WORLD backwards (DLROW): 4 letters Score Score: 6 Activity of Daily Living Bathing - sponge bath, tub bath or shower: receives no assistance (gets in/out by self, if usual bathing means Dressing - getting clothes from closets & drawers, including inner/outer garments & fasteners.: gets clothes & gets completely dressed without help Toileting - going to the 'toilet room' for urine/bowel elimination & cleaning self/arranging clothes: goes to toilet room, cleans self, arranges clothes without help Transfer: moves in & out of bed and chair without help (may use support object) Continence: controls urination/bowel movements completely by self Feeding: feeds self without help Total Score: 0 Information obtained from: patient Using telephone: independent Traveling: independent Shopping: independent Preparing meals: independent Housework: independent Taking medicine: independent Managing money: independent PHQ-9 Over the last 2 weeks, how often have you been bothered by any of the following problems? 1. Little interest or pleasure in doing things: several days 2. Feeling down, depressed, or hopeless: not at all 3. Trouble falling or staying asleep, or sleeping too much: not at all 4. Feeling tired or having little energy: not at all 5. Poor appetite or overeating: not at all 6. Feeling bad about yourself - or that you are a failure or have let yourself or your family down: not at all 7. Trouble concentrating on things, such as reading the newspaper or watching television: not at all 8. Moving or speaking so slowly that other people could have noticed. Or the opposite - being so fidgety or restless that you have been moving around a lot more than usual: not at all 9. Thoughts that you would be better off or of hurting yourself in some way: not at all Total score: 1 Depression Screening Interpretation: Negative Depression Screening Done: Yes 23455 - PHQ-9 Billing: Yes Source: Developed by Drs. Noam Johnson, Talya Tabares, Pilo Lamb and colleagues, with an educational isai from [employer]. Physical Exam Vital Signs: Last Vital Signs Pulse 79 10/03/24 12:02 BP 110/80 10/03/24 12:02 Pulse Ox 97 10/03/24 12:02 Oxygen Delivery Method Room Air 10/03/24 12:02 BMI result Body Mass Index 22.5 HEENT Other: hearing screening whisper test- passed Eyes Other: vision screening- 20/20 OS OD OU Other: urinary incontinence? no Neuro Other: balance Romberg- normal tandem walk test- normal walk-in turned test- able rise from sit to stand- within 2 seconds Assessment & Plan Assessment & Plan (1) Annual wellness visit: Code(s): Z00.00 - Encounter for general adult medical examination without abnormal findings Plan: As per HPI Quality Reporting (2019) Depression/Bipolar (159/160/161/177) PHQ-9: Total score: 1 Coding Level of Care Code Medicare First (G0438) Diagnoses Annual wellness visit Z00.00 CPT Codes Advance Care Planning - Time spent: 1-15 minutes, not on file ([id number]) Additional Codes PHQ-9 - 86359 - PHQ-9 Billing: Yes ([id number]) Advance Care Planning Advance Care Planning discussion: Exists, not on file Date of discussion: 10/03/24 Forms completed: MOLST Time spent: 1-15 minutes, not on file Actual minutes spent: 2
[2024-10-03 12:02] VITALS: BP 110/80; PULSE 79; O2SAT 97; BMI 22.5
== END 2024-10-03 12:31 | disposition home or self-care (01) ==
PROVIDERS: PCP Physician Assistant; Visit Provider Physician Assistant
DX: Z00.00 Encounter for general adult medical examination without abnormal findings (principal)

== ENCOUNTER → 2024-10-03 11:26 | Outpatient (BNVA) | payer MEDICARE, MEDICAID, SELFPAY | PROVIDERS: PCP Physician Assistant; Visit Provider Physician Assistant | DX: Z00.00 Encounter for general adult medical examination without abnormal findings (principal); I10 Essential (primary) hypertension | CPT/HCPCS: 96127 ==

== ENCOUNTER 2024-11-25 11:28 | Outpatient (AMB) | payer MEDICARE, MEDICAID, SELFPAY ==
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
== END 2024-11-25 12:08 | disposition home or self-care (01) ==
LOC: HO.HOP 11:28
PROVIDERS: PCP Physician Assistant; Visit Provider Psychiatry & Neurology Psychiatry
DX: F42.2 Mixed obsessional thoughts and acts (principal); F32.4 Major depressive disorder, single episode, in partial remission
CPT/HCPCS: 99214

== ENCOUNTER → 2024-11-25 11:28 | Outpatient (BNVA) | payer MEDICARE, MEDICAID, SELFPAY | PROVIDERS: PCP Physician Assistant; Visit Provider Psychiatry & Neurology Psychiatry | DX: F42.2 Mixed obsessional thoughts and acts (principal); F32.4 Major depressive disorder, single episode, in partial remission | CPT/HCPCS: 99212 ==

== ENCOUNTER 2025-02-24 11:34 | Outpatient (AMB) | payer MEDICARE, MEDICAID, SELFPAY ==
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
== END 2025-02-24 11:39 | disposition home or self-care (01) ==
LOC: HO.HOP 11:34
PROVIDERS: PCP Physician Assistant; Visit Provider Psychiatry & Neurology Psychiatry
DX: F42.2 Mixed obsessional thoughts and acts (principal); F33.9 Major depressive disorder, recurrent, unspecified
CPT/HCPCS: 99214

== ENCOUNTER → 2025-02-24 11:34 | Outpatient (BNVA) | payer MEDICARE, MEDICAID, SELFPAY | PROVIDERS: PCP Physician Assistant; Visit Provider Psychiatry & Neurology Psychiatry | DX: F42.2 Mixed obsessional thoughts and acts (principal); F33.9 Major depressive disorder, recurrent, unspecified; Z79.899 Other long term (current) drug therapy; Z56.89 Other problems related to employment | CPT/HCPCS: 99212 ==

== ENCOUNTER 2025-04-05 10:56 | Outpatient (AMB) | payer MEDICARE, MEDICAID, SELFPAY ==
--- NOTE | 2025-04-05 11:06 | MHC.PC.OV ---
Vital Signs 04/05/25 11:09 Height 5 ft 6 in Weight 142 lb 2 oz BMI 22.9 BP 100/70 Blood Pressure Location Lt brachial Position Sitting Pulse 90 Pulse Source Pulse Oximeter Temp 97.3 F Temp Source Temporal Artery Scan Pulse Oximetry (%) 97 Oxygen Delivery Method Room Air Intake Visit Reasons: 6 Month F/U Intake Note: Patient is here to follow up on DEUCE, HTN. Target Setter Required: No Zinc Miner Blasting: Not Required per policy Allergies No Known Allergies Allergy (Verified 04/05/25 11:19) Medication List - Last Reconciled 04/05/25 by Leobardo Cates PA-C clomipramine 100 mg (2 x 50 mg) PO BEDTIME 90 days ibuprofen 800 mg PO Q8H PRN 7 days lisinopril 30 mg PO DAILY 30 days nicotine (polacrilex) 4 mg buccal Q2H PRN 15 days propranolol 10 mg PO TID PRN tamsulosin 0.4 mg PO BID 30 days venlafaxine ER 150 mg PO DAILY 90 days Tobacco use date assessed: 04/05/25 Dental Screening Dental Screen Date: 04/05/25 Did you have a dental visit in the last 12 months?: Yes Did you have a dental problem in the last 6 months where you did not have access to dental care?: No Was dental information given to patient?: Patient has dentist HPI 6 Month F/U HPI Details Patient is a 60-year-old male here today for a follow-up visit. Patient has a past medical history significant hypothyroidism, OCD, hypertension. .. Hypertension: Blood pressure on the low side today in office. He has been asymptomatic. He has reduced his tamsulosin down to 0.4 mg daily. Does report some elevated blood pressure readings a few weeks ago and increase his lisinopril back to 20 mg. He continues on propranolol 10 mg t.i.d. PLAN : Advised to reduce his lisinopril to 10 mg and monitor blood pressure at home. .. OCD: Followed by Psychiatry. Feels his OCD and anxiety have been well controlled on current medications. He is considering returning back to work part-time. .. Former smoker: He reports he quit smoking about 2 months ago. He reports he had an episode of shortness of breath and wheeze and difficulty catching his breath which has scared him to which led to him stopping smoking. [facility] Medical History Rhabdomyolysis Internal hemorrhoid Diverticulosis BPH (benign prostatic hyperplasia) Arthritis Restless legs syndrome (RLS) OCD (obsessive compulsive disorder) Major depression with psychotic features Hypothyroidism Hypertension Bipolar 1 disorder Bipolar affective disorder, depressed, severe, with psychotic behavior Surgical History H/O colonoscopy History of wisdom tooth extraction Family History Father Throat cancer Mother Uterine cancer Brother In good health Brother In good health Social History Household Members: None Housing: Apartment Do you presently have visiting nurse or other home services: No Alcohol intake: current Alcohol intake frequency: a few times a week Alcohol type: beer Patient Tobacco Use Status: Former Tobacco user (01/2025) Cigarettes Per Day: 10 e-Cigarette/Vaping Use: Never Used Second Hand Smoke Exposure: Yes Substance Use Type: Marijuana service: No Current occupational status: disabled Cognitive needs: No Hearing needs: No Vision needs: No Questionnaire Thrive Questionnaire Date Thrive assessed: 10/01/24 I am a: Patient What is your living situation today?: I have a steady place to live Within the past 12 months, did the food you bought not last and you didn't have the money to get more?: Sometimes True Within the past 12 months, did you worry whether your food would run out before you got money to buy more?: Sometimes True Do you have trouble paying for medicines?: No Do you have trouble getting transportation to medical appointments?: No Do you have trouble paying your heating and electricity bill?: I choose not to answer this question Do you have trouble taking care of your child, family member or friend?: No Do you have trouble with day-to-day activities such as bathing, preparing meals, shopping, managing finances, etc.?: No Are you currently unemployed and looking for a job?: No Are you interested in more education?: I choose not to answer this question Please select the resources that you would like help with: Housing/Senior Living Currently or been in a relationship where the following occur: No concerns reported THRIVE Score: 2 LENKA-7 AMB Questionnaire LENKA-7 Date LENKA - 7 assessed: 10/01/23 Source: Developed by Drs. Noam Johnson, Talya Tabares, Pilo Lamb and colleagues, with an educational isai from [employer]. Review of Systems Const Denies headache(s) Eyes Denies loss of vision ENT Denies vertigo, Denies dizziness, Denies headache(s) and Denies sore throat Card Denies chest pain, Denies leg edema and Denies lightheadedness Resp Denies cough, Denies hemoptysis and Denies wheezing GI Denies abdominal pain, Denies melena, Denies constipation, Denies diarrhea and Denies vomiting Denies dysuria, Denies urinary frequency and Denies urinary urgency Musc Denies arthralgias, Denies joint swelling, Denies numbness and Denies tingling Neuro Denies Abnormal speech present, Denies behavioral changes, Denies vertigo, Denies dizziness, Denies headache(s), Denies loss of vision, Denies memory loss, Denies numbness and Denies tingling Psych Denies anxiety, Denies behavioral changes, Denies depression, Denies memory loss and Denies panic attacks Reggie/Lymph Denies easy bleeding and Denies easy bruising Aller/Immun Denies wheezing Physical exam (Primary Care) Vital Signs: Last Vital Signs Temp 97.3 F 04/05/25 11:09 Pulse 90 04/05/25 11:09 BP 100/70 04/05/25 11:09 Pulse Ox 97 04/05/25 11:09 Oxygen Delivery Method Room Air 04/05/25 11:09 BMI result Body Mass Index 22.9 Tobacco/Smoking Status: Tobacco use Status Tobacco use date assessed 04/05/25 04/05/25 11:16 Patient Tobacco Use Status Former Tobacco user (01/202504/05/25 11:16 ) e-Cigarette/Vaping Use Never Used 04/05/25 11:16 Thrive Assessment: Date of Thrive Assessment Date Thrive assessed 10/01/24 04/05/25 11:16 Currently or been in a relationship where the following occur: No concerns reported Const General: healthy appearing, no acute distress, alert and awake Nutritional Appearance: well nourished Orientation/consciousness: oriented to person, oriented to place and oriented to time HENMT Ears: TM's normal bilaterally General nose exam: Normal nasal mucous membranes and turbinates present Eyes Conjunctivae: conjunctivae normal Sclerae: sclerae normal Pupils: Equal, round and reactive pupils present Neck Neck: Yes no lymphadenopathy and Yes no JVD Thyroid: Thyroid normal Carotids: no bruits Resp Effort & Inspection: normal respiratory effort and not tachypneic Auscultation: no crackles, no rales, no rhonchi and no wheezes Cardio Rate: regular rate Rhythm: regular rhythm Heart sounds: no murmurs and normal S1 and S2 GI Palpation (GI): Soft to palpation, nontender, no hepatomegaly and no splenomegaly Auscultation: normal bowel sounds Skin General skin exam: no rashes or lesions noted and dry skin Neuro General: oriented to person, oriented to place and oriented to time Cranial nerves: Yes Equal, round and reactive pupils present Speech: No Abnormal speech present Gait exam (Neuro): Normal gait present Motor exam (neuro): no tremor noted Extrem Right upper extremity: full ROM Left upper extremity: full ROM Right lower extremity: full ROM; no edema Left lower extremity: full ROM; no edema Psych Mental Status: mental status grossly normal Speech and movement: Normal speech and movement present Affect: normal affect Attitude: cooperative Thought process: Normal thought process present Coding Level of Care Code Est Pt Level 4 (70518) Diagnoses Major depressive disorder, recurrent episode, in partial remission with seasonal pattern F33.41 Primary hypertension I10 Hypertension type: primary hypertension Hypertriglyceridemia E78.1 Hypothyroidism, unspecified type E03.9 Hypothyroidism type: unspecified Mixed obsessional thoughts and acts F42.2 Obsessive-compulsive disorder type: mixed obsessional thoughts and acts Former smoker Z87.891 Mild intermittent asthma without complication J45.20 Asthma severity: mild Asthma persistence: intermittent Asthma complication type: uncomplicated Assessment & Plan Assessment & Plan (1) Major depressive disorder, recurrent episode, in partial remission with seasonal pattern: Code(s): F33.41 - Major depressive disorder, recurrent, in partial remission Category: Medical Plan: Patient continues to follow a mental health therapist and a psychiatrist and feels his mental health is stable. (2) HTN (hypertension): Code(s): I10 - Essential (primary) hypertension Category: Medical Qualifiers: Hypertension type: primary hypertension Qualified Code(s): I10 - Essential (primary) hypertension Plan: Patient's blood pressure acceptable today in office. He denies any syncopal episodes or continue will dizziness. Goal blood pressures to be below 140/90 and above 100/60 (3) Hypertriglyceridemia: Code(s): E78.1 - Pure hyperglyceridemia Category: Medical Plan: Patient has a history of hypertriglyceridemia, continues to manage with dietary changes. (4) Hypothyroidism: Code(s): E03.9 - Hypothyroidism, unspecified Category: Medical Qualifiers: Hypothyroidism type: unspecified Qualified Code(s): E03.9 - Hypothyroidism, unspecified Plan: Patient has a history of hypothyroidism. Will continue to follow TSH to ensure normal (5) OCD (obsessive compulsive disorder): Code(s): F42.9 - Obsessive-compulsive disorder, unspecified Category: Medical Qualifiers: Obsessive-compulsive disorder type: mixed obsessional thoughts and acts Qualified Code(s): F42.2 - Mixed obsessional thoughts and acts Plan: Continues to follow psychiatrist and a mental health therapist. Feels his OCD is fairly stable. (6) Former smoker: Code(s): Z87.891 - Personal history of nicotine dependence Category: Social Hx Plan: Congratulated patient on quitting smoking the last 2 months. He is proud of himself for this. Still has nicotine supplement available to him for cravings. (7) Asthma: Code(s): J45.909 - Unspecified asthma, uncomplicated Category: Medical Qualifiers: Asthma severity: mild Asthma persistence: intermittent Asthma complication type: uncomplicated Qualified Code(s): J45.20 - Mild intermittent asthma, uncomplicated Plan: Recently quit smoking and does report having a small minor wheeze and morning cough likely secondary to his smoking. We did look into an albuterol inhaler though due to taking propranolol there is a relative contraindication. Orders: Orders TSH reflex Free T4 Today E03.9 - Hypothyroidism, unspecified Microalbumin, Random (w Creat) Today I10 - Essential (primary) hypertension Lipid Panel Today E78.1 - Pure hyperglyceridemia Comprehensive [place]. Panel Fast Today I10 - Essential (primary) hypertension Complete Blood Count no Diff Today I10 - Essential (primary) hypertension Prostate Specific Antigen Scr Today J45.20 - Mild intermittent asthma, uncomplicated, Z12.5 - Encounter for screening for malignant neoplasm of prostate Medications: New guaifenesin ER (Mucinex) 600 mg PO BID 30 tabs 0RF 15 days J45.20 - Mild intermittent asthma, uncomplicated
[2025-04-05 11:09] VITALS: BP 100/70; PULSE 90; TEMP 36.3; O2SAT 97; BMI 22.9
== END 2025-04-05 11:40 | disposition home or self-care (01) ==
LOC: HO.HMCH 10:58
PROVIDERS: PCP Physician Assistant; Visit Provider Physician Assistant
DX: F33.41 Major depressive disorder, recurrent, in partial remission (principal); I10 Essential (primary) hypertension; E78.1 Pure hyperglyceridemia; E03.9 Hypothyroidism, unspecified; F42.2 Mixed obsessional thoughts and acts; Z87.891 Personal history of nicotine dependence; J45.20 Mild intermittent asthma, uncomplicated

== ENCOUNTER → 2025-04-05 10:56 | Outpatient (BNVA) | payer MEDICARE, MEDICAID, SELFPAY | PROVIDERS: PCP Physician Assistant; Visit Provider Physician Assistant | DX: I10 Essential (primary) hypertension (principal); E03.9 Hypothyroidism, unspecified; F42.9 Obsessive-compulsive disorder, unspecified; F33.41 Major depressive disorder, recurrent, in partial remission; E78.1 Pure hyperglyceridemia; F42.2 Mixed obsessional thoughts and acts; J45.20 Mild intermittent asthma, uncomplicated; Z87.891 Personal history of nicotine dependence | CPT/HCPCS: 99212 ==

== ENCOUNTER 2025-04-28 11:35 | Outpatient (AMB) | payer MEDICARE, MEDICAID, SELFPAY ==
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
== END 2025-04-28 11:37 | disposition home or self-care (01) ==
LOC: HO.HOP 11:35
PROVIDERS: PCP Physician Assistant; Visit Provider Psychiatry & Neurology Psychiatry
DX: F42.2 Mixed obsessional thoughts and acts (principal); F33.41 Major depressive disorder, recurrent, in partial remission; I10 Essential (primary) hypertension
CPT/HCPCS: 99214

== ENCOUNTER → 2025-04-28 11:35 | Outpatient (BNVA) | payer MEDICARE, MEDICAID, SELFPAY | PROVIDERS: PCP Physician Assistant; Visit Provider Psychiatry & Neurology Psychiatry | DX: F42.2 Mixed obsessional thoughts and acts (principal); F33.41 Major depressive disorder, recurrent, in partial remission; I10 Essential (primary) hypertension; Z79.899 Other long term (current) drug therapy | CPT/HCPCS: 99212 ==

== ENCOUNTER 2025-06-15 14:26 | Outpatient (AMB) | payer MEDICARE, MEDICAID, SELFPAY ==
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
== END 2025-06-15 15:15 | disposition home or self-care (01) ==
LOC: HO.HOP 14:26
PROVIDERS: PCP Physician Assistant; Visit Provider Psychiatry & Neurology Psychiatry
DX: F42.2 Mixed obsessional thoughts and acts (principal); F33.41 Major depressive disorder, recurrent, in partial remission
CPT/HCPCS: 99214

== ENCOUNTER → 2025-06-15 14:26 | Outpatient (BNVA) | payer MEDICARE, MEDICAID, SELFPAY | PROVIDERS: PCP Physician Assistant; Visit Provider Psychiatry & Neurology Psychiatry | DX: F42.2 Mixed obsessional thoughts and acts (principal); F33.41 Major depressive disorder, recurrent, in partial remission; Z87.891 Personal history of nicotine dependence | CPT/HCPCS: 99212 ==